=== PATIENT | male | born 1945 | race Caucasian/White ===

== ENCOUNTER 2025-05-18 17:54 | Emergency (ER) | payer OTHER, SELFPAY ==
[2025-05-18 17:58] VITALS: BP 167/86
[2025-05-18 18:08] LABS: Urine Character Slightly Cloudy (Clear)
--- NOTE | 2025-05-18 18:11 | ED.GENMED ---
History of Present Illness
General
Chief Complaint: Male Genito-Urinary Symptoms
Source: patient
Exam Limitations: none
Time Seen by Provider: 05/18/25 18:11
Nursing documentation reviewed up to this point in time: agreed with
History of Present Illness
History of Present Illness:
Note:
CHIEF COMPLAINT(S)
Dark-colored urine for a few hours.
HISTORY OF PRESENT ILLNESS
The patient is an 79-year-old male with a pmh of htn, hlp, skin cancer, diverticulitis, COPD, presenting with a sudden change in urine color to dark, noted this afternoon. The patient reports that earlier in the day, his urine appeared normal. The
change occurred approximately three hours ago, around 3:30 PM. The patient was recently engaged in yard work during a period of hot and humid weather, which may have led to inadequate hydration. He suspects possible dehydration as a contributing
factor. The patient reports no current symptoms of body aches, vomiting, or discomfort during urination, aside from the change in urine color. He denies urinary frequency or urgency. He denies abdominal pain, flank pain. He has a history of engaging
in similar physical activities regularly, but this instance involved excessive perspiration. The patient called his primary care provider who expressed concern regarding rhabdomyolysis and sent him to the ER for further evaluation.
PAST SURGICAL HISTORY
The patient has a history of having a section of their bowel removed due to presumed diverticulitis with subsequent perforation. The bowel was resected and restored, and he reports no ongoing issues since the intervention.
PHYSICAL EXAM
- Nursing notes and vital signs were reviewed.
General: Patient is well appearing and in no acute distress; non-toxic
Skin: Warm and dry, no rashes or lesions
Head: Normocephalic, atraumatic
Eyes: Sclera non-icteric. EOMs intact.
Cardiac: Regular rate and rhythm, no murmurs
Peripheral Vascular: No lower extremity swelling or edema
Pulm: Normal respiratory effort, no wheezes, rales, or rhonchi
Abdomen: No abdominal tenderness to palpation
Neuro: CN II-XII intact, no focal neurologic deficits.
Psychiatric: Appropriate mood and affect.
PROBLEM LIST
Acute:
- Dark-colored urine
PLAN
The plan includes obtaining blood work to rule out conditions such as rhabdomyolysis and administration of intravenous fluids to address and potentially alleviate dehydration concerns.
DIFFERENTIAL DIAGNOSIS
The Differential Diagnosis includes, in no particular order and is not limited to:
1. Dehydration
2. Rhabdomyolysis
3. Urinary tract infection
4. Hematuria
5. Hepatobiliary disease
6. Medication-induced urine color change
7. Muscle injury
8. Heat-related illness
9. Acute kidney injury
10. Hemolytic anemia
CARE-UPDATE
05/18/25 - 19:17
Reviewed call in note; According to patient's primary care provider indicate the patient has a history of chronic microhematuria with a negative urology workup approximately 10 years ago. Currently awaiting the results of the potassium and chemistry
panel for further assessment.
05/18/25 - 19:32
Patient notes that his urine color has lightened and that it now appears light yañez to yellow; patient has no complaints at this time. Updated patient on his labs. Patient reports that he has had a cystoscopy in the past for his microscopic
hematuria which was normal.
CHART REVIEW
Reviewed colonoscopy from 02/03/2021 patient had polyps which were removed
Reviewed discharge summary from 04/22/2019 patient seen for abdominal pain and was found to have perforated diverticulitis
Reviewed external medical summary, reviewed note from well visit September 13, 2024, patient seen for vaccination dates, discussed exercise, and dietitian follow-up
MDM DISPOSITION
The patient is an 79-year-old male with a pmh of htn, hlp, skin cancer, diverticulitis, COPD, presenting with a sudden change in urine color to dark, noted this afternoon. He has been working outside doing yard work for multiple hours and he
reports that with how hot it was recently, he has been profusely sweating. Patient admits that he feels he has not been hydrating adequately. At this time, patient feels well. Patient has occasional body aches in his shoulders but this is where
he usually feels sore after doing yard work. He denies any abdominal pain. He denies any burning with urination, flank pain, fevers or chills. On physical exam he is well-appearing in no acute distress he has no abdominal tenderness, no CVA
tenderness. Concern for primary regarding rhabdo, patient was noted to have microscopic hematuria today however patient has a history of this and has been worked up for urology in the past.
His CBC is unremarkable, his CMP shows mildly elevated BUN but normal creatinine and normal GFR. Does have a slightly elevated creatinine kinase 224 however not in rhabdo territory. Urine color has been improving with hydration. Suspect acute
dehydration. Did stress follow-up with primary care and perhaps follow-up again with urology considering it has been since it has been some time. There is some moderate bacteria on urinalysis and 1+ leukocyte esterase however patient has no pelvic
pain, no dysuria, no hematuria, no fever, no urinary frequency, no abdominal pain, will await urine culture in regards to abx therapy. He does not have a hx of UTIs. Patient stable for discharge.
Past History
Past History
ED Past Medical History: None
ED Past Surgical History: Orthopedic
Social History
Tobacco: Former smoker
Alcohol: None
Drug: None
Personal:
Living: with family
Review of Systems
Review of Systems
All Other Systems: ROS reviewed and negative except as documented in HPI and ROS
Phy Exam
Physical Exam
Physical Exam:
see hpi
Course
Orders/Labs/Results
Orders:
Orders
05/18/25 18:01
Urinalysis Reflex To Culture Urgent
Date Specimen was Collected: 05/18/25
Time Specimen was Collected: 18:00
Urine Microscopic Reflex Cult Urgent
Urine Culture Urgent
BENNIE Source: U
Specimen Description:
Date Specimen was Collected: 05/18/25
Time Specimen was Collected: 18:00
05/18/25 18:23
0.9% Sodium Chloride 500 ml [Nss] 500 ml IV BOLUS
05/18/25 18:25
CPK [Creatine Phosphokinase] Urgent
Complete Blood Count/With Diff Urgent
Comprehensive Metabolic Panel Urgent
Abnormal Lab Results
05/18/25 05/18/25
18:01 18:25
RBC 4.48 L 10^6/uL
(4.70-6.10)
BUN 21 H mg/dl
(9-20)
Creatinine 0.6 L mg/dL
(0.7-1.3)
Creatine Kinase 224 H U/L
(55-170)
Ur Occult Blood Reflex 4+ A
(Negative)
Leukocyte Esterase Rfl 1+ A
(Negative)
Urine RBC 40-50 A /HPF
(0-2)
Urine Bacteria (Reflex) Moderate A
(Negative)
Urine Albumin (Reflex) 3+ A
(Neg - Trace)
05/18/25 18:25
05/18/25 18:25
Vital Signs
Initial and Last Documented VS:
Initial Vital Signs
Temp Pulse Resp BP Pulse Ox
98.7 F 69 16 167/86 99
05/18/25 17:58 05/18/25 17:58 05/18/25 17:58 05/18/25 17:58 05/18/25 17:58
Last Documented Vital Signs
Temp Pulse Resp BP Pulse Ox
98.7 F 69 16 167/86 99
05/18/25 17:58 05/18/25 17:58 05/18/25 17:58 05/18/25 17:58 05/18/25 18:12
*Pulse Oximetry
SaO2: 99
Oxygen Mode of Delivery: Room air
Patient hypoxic: no
*Critical Care Note
Total Time (30-74mins, 75-104mins- exclusive of procedures): Not Applicable
ED Attending Note
-
Portions of this chart may have been created with voice recognition software.� Occasional wrong word or��sound alike� substitutions may have occurred due to the inherent limitations of voice recognition software.
Discharge Plan
Departure
Patient Disposition: Home (Routine Discharge)
Date of Disposition: 05/18/25
Time of Disposition: 19:36
Patient with high blood pressure during this ER visit?: Yes
Condition: Good
Discharge Problem:
Acute dehydration, Intermittent microscopic hematuria
Instructions: Dehydration in adults - ED discharge instructions, Blood in the urine (hematuria) - ED discharge instructions, BLOOD PRESSURE
Prescriptions:
No Action
rosuvastatin 5 MG tablet
5 mg PO HS
olmesartan 20 MG tablet
40 mg PO HS
hydrocodone-acetaminophen 1 TABLET tablet
1 - 2 tab PO Q4HPRN PRN (Reason: moderate to severe pain) Qty: 20 0RF
Referrals:
Jerri Knapp MD [Active, Internal Medicine] - Call in 1-3 days for appt
Montrell Mcmullen MD [Active, Urology] - Call in 1-3 days for appt
Norm Acevedo DO [Family Provider, [facility]]
Activity Restrictions/Additional Instructions:
You were given a copy of your blood work. Your CPK level is unremarkable. You will receive a call regarding the results of your urine culture.
As discussed, please follow-up with your primary care provider. You may need repeat follow-up with urology since it has been 10+ years.
Please return to emergency department should you develop abdominal pain, chest pain, shortness of breath, nausea and vomiting, fevers or chills, burning with urination, flank pain, or any other signs or symptoms worrisome to you.
Interventions
Interventions:
*Risk Screen - Suicide Last Done: 05/18/25 17:58
*General Assessment Last Done: 05/18/25 18:13
*Neglect/Abuse Screening Last Done: 05/18/25 17:58
*ED- Fall Risk Assessment Last Done: 05/18/25 18:13
*ED COVID-19 Vaccine History Last Done: 05/18/25 18:13
*Nursing Disposition Last Done: 05/18/25 19:46
ED-Male Genitourinary Assessment Last Done: 05/18/25 19:07
Discharge Date and Time
Discharge Date/Time: 05/18/25 19:46
Print Language: TELUGU
[2025-05-18 18:13] VITALS: BMI 31.8
[2025-05-18 18:15] LABS: Urine Red Blood Cell 40-50 /HPF (0-2); Urine Squamous Cell 16-20 /LPF (Few)
[2025-05-18] MEDS: NSS 500 IV (18:32)
[2025-05-18 18:49] LABS: Hematocrit 40.2 % (39.0-52.0); Hemoglobin 13.9 g/dL (13.0-18.0); Mean Corp Hgb Conc. 34.6 g/dL (33.0-37.0); Mean Corpuscular Volume 89.7 fL (80.0-94.0); Nucleated Red Blood Cells % 0 % (-); Platelet Count 215 10^3/uL (130-400); Red Cell Dist. Width 12.9 % (11.5-14.5)
[2025-05-18 19:19] LABS: ALT (SGPT) 22 U/L (0-50); AST (SGOT) 27 U/L (17-59); Albumin 4.6 g/dl (3.5-5.0); Alkaline Phosphatase 80 U/L (38-126); Blood Urea Nitrogen 21 mg/dl (9-20); Calcium 9.7 mg/dl (8.4-10.2); Carbon Dioxide 24 mmol/L (22-30); Chloride 104 mmol/L (98-107); Estimated Creatinine Clearance 113 ml/min; Glucose 87 mg/dl (70-99); Potassium 4.5 mmol/L (3.5-5.1); Sodium 135 mmol/L (135-145); Total Protein 7.1 g/dl (6.3-8.2); eGFR > 60.00
== END 2025-05-18 19:46 | disposition home or self-care (01) ==
LOC: EMR 17:54
PROVIDERS: Physician Assistant; Student in an Organized Health Care Education/Training Program; EMERGENCY PHYSICIAN Emergency Medicine; FAMILY PHYSICIAN Family Medicine
DX: E86.0 Dehydration (principal); R31.29 Other microscopic hematuria; I10 Essential (primary) hypertension; E78.00 Pure hypercholesterolemia, unspecified; J44.9 Chronic obstructive pulmonary disease, unspecified; Z85.828 Personal history of other malignant neoplasm of skin; Z87.891 Personal history of nicotine dependence
CPT/HCPCS: 99283; 80053; 81003; 81015; 82550; 85025; 87086

== ENCOUNTER → 2025-07-22 15:42 | Outpatient (REF) | payer OTHER, SELFPAY | LOC: RAD 15:42 | PROVIDERS: ATTENDING PHYSICIAN Surgery; FAMILY PHYSICIAN Family Medicine | DX: R31.9 Hematuria, unspecified (principal) | CPT/HCPCS: 74178; Q9967 ==

== ENCOUNTER 2025-07-29 06:36 | Day surgery (SDC) | payer OTHER, SELFPAY ==
[2025-07-29] VITALS (9 sets, daily range): BP systolic 157–174; BP diastolic 89–119; BMI 31.3
[2025-07-29] MEDS: NORMOSOL-R/PLASMALYTE-A 1000 IV ×2 (10:59→11:42)
[2025-07-29] MEDS: DETROL LA 4 MG PO (13:09)
== END 2025-07-29 13:44 | disposition home or self-care (01) ==
LOC: SDS 06:36
PROVIDERS: ATTENDING PHYSICIAN Surgery
DX: C65.2 Malignant neoplasm of left renal pelvis (principal); R31.0 Gross hematuria
CPT/HCPCS: 52354; 88112; 88305; 93005

== ENCOUNTER 2025-09-04 06:17 | Inpatient (IN) | payer OTHER, SELFPAY ==
[2025-09-04] VITALS (51 sets, daily range): BP systolic 45–172; BP diastolic 49–90; BMI 32.2
[2025-09-04] MEDS: NORMOSOL-R/PLASMALYTE-A 1000 IV (07:14)
[2025-09-04] MEDS: HEPARIN 5000 UNITS SC (07:18)
[2025-09-04 11:20] LABS: Hematocrit 30.9 % (39.0-52.0); Hemoglobin 10.5 g/dL (13.0-18.0)
--- NOTE | 2025-09-04 13:15 | SUR.PHASEI ---
Pt received to PACU with BP 63/55, Kai Kimball CRNA at pt bedside. Dr. Page notified by AUDIO/VIDEO TECHNICIAN
--- NOTE | 2025-09-04 13:24 | SUR.PHASEI ---
Dr. Hoang notified pt on Levophed gtt and MT drain with 180ml output
--- NOTE | 2025-09-04 13:30 | SUR.PHASEI ---
Dr. Page and Dr. Daily at pt bedside to evaluate. Pt to be upgraded to ICU
[2025-09-04 13:39] LABS: Hematocrit 37.6 % (39.0-52.0); Hemoglobin 12.9 g/dL (13.0-18.0)
--- NOTE | 2025-09-04 13:40 | CON.HOSP ---
Consultation
-
Date/Time Consultation Requested: 09/04/25
Date/Time Consultation Performed: 1:41
Performing Provider: Dr Norman
Reason for Consultation: S/p left robotic nephro ureterectomy
Family Physician
-
Family Physician: Norm Acevedo
Chief Complaint
-
2 L IntraOp blood loss
History of Present Illness
80-year-old male with past history of hypertension, urothelial cancer, sciatica, hyperlipidemia underwent today left robotic s/p nephroureterectomy, while on IntraOp 2 liters of blood loss noted and received 2 units PRBCs. Immediate postop his
blood pressure is 83/60 and hospitalist is consulted for future needing of pressors while in PACU. Patient has concern for back pain(chronic due to spinal stenosis). He has no concern for chest pain, palpitation, dyspnea. His urine output
immediate postop is around 20 mL. His extremities are warm(not concerning for septic shock). Levophed 4 mg / 250 mL started. Shifted to ICU. Around 3 PM his blood pressure is 107/70 with MAP 80. His temperature is in normal range. He is on 2 L
of nasal cannula oxygen but the saturation maintaining around 96%.
Medical History
Past Medical History
Past Medical History: Reports HTN, Hypercholesterolemia and Other (sciatica)
Additional Past Medical History:
Perforated diverticulum, umbilical hernia without obstruction, urothelial cancer.
Past Surgical History: Reports Bowel Resection and Other (colostomy. )
Social History
Unable to obtain full social history at this time due to: Other (Patient in postop.)
Allergies / Home Medications
Allergies
Allergy/AdvReac Type Severity Reaction Status Date / Time
Penicillins Allergy Possible Verified 09/04/25 14:43
rash 'a
long time
ago'
Opioids - Morphine Analogues AdvReac 'bowels Verified 09/04/25 14:43
shut down'
Home Medications
rosuvastatin 20 mg tablet 20 mg PO HS 07/25/25
olmesartan 40 mg tablet (Benicar) 40 mg PO HS 08/28/25
tramadol 50 mg tablet 50 mg PO TID PRN severe pain #10 tabs 09/04/25
Allergies reflects when Allergies were last updated in [facility].
Home Medications with original date entered in [facility]
Allergy/Medication List:
penicillin allergy
Review of Systems
-
History Source: Patient
A 12 point Review of Systems was completed except as noted: Yes
Physical Exam
Vital Signs
Vital Signs
Temp Pulse Resp BP Pulse Ox
98.1 F 95 27 101/76 100
09/04/25 07:22 09/04/25 13:32 09/04/25 13:32 09/04/25 13:32 09/04/25 13:32
Physical Exam
General: Other (distress due to pain)
HEENT: Oxygen (2 L oxygen)
Respiratory: Clear
Cardiac: S1/S2 and Regular Rhythm
GI: Soft
Genito-urinary: Lopez Catheter (770 mL)
Neuro: Awake, Alert and Oriented
Psych: Calm
Laboratory Results
-
Laboratory Results
09/04/25 13:27
Impression / Plan
-
IMPRESSION & PLAN:
# Hypotension secondary to IntraOp blood loss:
BP 107/70 , after Levophed infusion.
Extremities are warm.
2 L blood loss IntraOp and transfused 2 units of packed RBCs.
Currently Hb 10.5 low---> 12.9 low
Ringer lactate 1 L and a rate of 125 mL/h infusion started.
Monitor I/O---> UO = 700 mL (as of now 50 mL noticed in the bag.)
Current creatinine is 0.8.
Monitor electrolytes, bicarb, magnesium.
Urinalysis in future for routine.
# Monitor PT, PTT.
# Placed order lactate.
# Acute anemia secondary to blood loss:
Currently Hb 10.5 low---> 12.9 low
If Hb drops less than 7, consider blood transfusion.
Monitor H&H
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
Tramadol as needed.
# Hyperlipidemia:
Continue Rosuvastatin 20 mg tablet 20 mg
# Hypertension:
Continue olmesartan 40 mg tablet (Benicar) 40 mg
# Monitor CBG-blood glucose 191 high.
DVT: Lovenox 40 mg SC
Disposition: ICU
[2025-09-04] MEDS: LEVOPHED 250 IV (13:49)
[2025-09-04] MEDS: TRANEXAMIC ACID 100 IV (13:50)
[2025-09-04 13:52] LABS: ALT (SGPT) 17 U/L (0-50); AST (SGOT) 20 U/L (17-59); Albumin 3.0 g/dl (3.5-5.0); Alkaline Phosphatase 53 U/L (38-126); Blood Urea Nitrogen 16 mg/dl (9-20); Calcium 7.9 mg/dl (8.4-10.2); Carbon Dioxide 24 mmol/L (22-30); Chloride 105 mmol/L (98-107); Estimated Creatinine Clearance 87 ml/min; Glucose 191 mg/dl (70-99); Potassium 4.6 mmol/L (3.5-5.1); Sodium 135 mmol/L (135-145); Total Protein 4.9 g/dl (6.3-8.2); eGFR > 60.00
[2025-09-04 14:08] LABS: Mean Corp Hgb Conc. 34.2 g/dL (33.0-37.0); Mean Corpuscular Volume 88.8 fL (80.0-94.0); Nucleated Red Blood Cells % 0 % (-); Platelet Count 235 10^3/uL (130-400); Red Cell Dist. Width 13.8 % (11.5-14.5)
--- NOTE | 2025-09-04 14:28 | CON.INTV ---
Consultation
Consultation Request
Date/Time Consultation Requested: 09/04/2025 14:05
Date/Time Consultation Performed: 09/04/2025 14:28
Requesting Provider: Mohit Norman DO
Performing Provider: Luis aTmez MD
Medical History
-
History of Present Illness:
This is an 80 y/o male with pertinent pmhx of left urothelial carcinoma diagnosed following hematuria.
He presented to the hospital today for an elective left nephroureterectomy. By hospitalist report, the surgery was complicated by a blood loss of approximately 2L in the OR. He received 2 units of pRBCs, but was persistently hypotensive in the wake
of his blood loss in the PACU. He as started on low-dose levophed which improved his MAP to low 70s. Post-operative labs revealed a calcium of 7.9, a hemoglobin initially of 10.5 which increased to 12.9, WBC of 15.5. There are no new X-rays or CT
scans from this admission. He was admitted to the ICU for further management.
At the time of my note he is responsive and answering questions appropriately, though he does seem tired. He states he feels lethargic from anesthesia, but otherwise feels good. He is currently free of chest pain, shortness of breath, abdominal
pain, or any other new pain anywhere else. He is free of chills or feeling cold, as well as numbness or dizziness.
Past Medical History
Past Medical History: Cancer (Squamous cell carcinoma of the skin, left urothelial carcinoma), HTN, Hypercholesterolemia and Other (Lumbar degenerative disc disease and spinal stenosis, Diverticulosis with history of Diverticulitis, Obesity,
Perforated diverticulum of the large intestine in 2019, Microscopic hematuria )
Past Surgical History: Other (Left ankle repair, Right knee scope. Umbilical herniorrhaphy w/ mesh 2016, Ex Lap with sigmoid resection and descending colostomy 2018, Excision of squamous cell carcinoma of the skin, Robotic colostomy closure w/
takedown of splenic flexure in 2018, Shoulder replacement 2021)
Social History
Tobacco: Former Smoker (Quit >40 years prior)
Alcohol: None
Drug: None
Personal:
Living: With Family
Family History
Family History: Reviewed & Not Pertinent
Allergies / Home Medications
Allergies
Allergy/AdvReac Type Severity Reaction Status Date / Time
Penicillins Allergy POSSIBLE Verified 09/04/25 07:08
RASH
opiods Allergy 'bowels Uncoded 09/04/25 07:08
shut down'
Home Medications
�Medication �Instructions �Recorded �Confirmed �Last Taken �Type
rosuvastatin 20 mg tablet 20 mg PO HS 07/25/25 09/04/25 09/03/25 21:00 History
olmesartan 40 mg tablet (Benicar) 40 mg PO HS 08/28/25 09/04/25 09/03/25 21:00 History
tramadol 50 mg tablet 50 mg PO TID PRN severe pain #10 09/04/25 Unknown Rx
tabs
Review of Systems
-
History Source: Patient
All other systems: Negative unless noted
Constitutional: Fatigue and Chills (Denies)
Respiratory: No Symptoms
Cardiac: No Symptoms
Abdomen/GI: No Symptoms
Musculoskeletal: No Symptoms
Skin: No Symptoms
Neuro: No Symptoms
Vitals / Labs / Diagnostic Testing
Vital Signs
Temp Pulse Resp BP Pulse Ox
98.6 F 88 0 107/62 94
09/04/25 13:15 09/04/25 14:15 09/04/25 14:15 09/04/25 14:15 09/04/25 14:15
Lab Data
09/04/25 13:27
09/04/25 13:27
Diagnostic Testing:
Physical Exam
-
HEENT: Normocephalic and Anicteric
Cardiovascular: S1/S2 and Regular Rhythm
Respiratory: Clear
GI: Other (There is a midline/slightly post operative drain which appears clean. During my time in the room, approximately 110mL of bloody liquid was removed from the surgical drain by staff)
Neurology: Awake and Alert
Skin: Warm, Dry and Other (Pale)
General: Comfortable
Assessment
-
Assessment:
This is an 80 y/o male with pertinent pmhx of left urothelial carcinoma who presented to the hospital today for an elective left nephroureterectomy who reportedly experienced 2L blood loss in the ED and experienced persistent hypotension requiring
levophed despite 2 units pRBCs being transfused who now has new EKG changes on routine admission EKG.
Plan:
Circulatory Shock in the setting of acute blood loss during surgery
Patient underwent elective left nephroureterectomy today reportedly complicated by loss of 2L of blood an tranexamic acid and subsequently developed persistent hypotension despite 2 units pRBCs being transfused. Total operative time ~5 hours
DD includes hypotension from acute blood loss vs anesthesia reaction vs transient shock due to kidney surgery
S/p 1 time dose 2g Ceftriaxone for surgery
Hemoglobin today initially 10.5 which increased to 12.9
Lactated Ringers started by admitting team
Thus far he has remained fever-free
Currently he is on Levophed 6
Continue to wean Levophed as tolerated, keeping MAP >65. Should Levophed requirements increase, start Vasopressin
Continue to monitor CBC
Blood cultures obtained by admitting team
Hold home BP medication (Olmesartan) acutely
Plan to transfuse as necessary for hemoglobin less than 7.
Low threshold to start antibiotics (Fever, increased pressor requirements)
EKG changes
New 1mm ST elevations in lead III and aVF with depressions in aVL
Compared to prior EKG in 07/2025, new
Currently asymptomatic.
Ordered troponin, will plan to repeat EKG in 15 minutes
Consulted cardiology, will appreciate their insight. Discussed case with them today and they recommend aspirin and echocardiogram
Continue home Rosuvastatin
Monitor for symptom development.
Left urothelial carcinoma S/p elective left nephroureterectomy
Most recent CT scan from 07/22/2025 showed likely urothelial carcinoma in the left renal pelvis.
S/p elective left nephroureterectomy today complicated by blood loss (see above)
Operation note pending
Follow pathology from OR
Post-operative management per Urology
[2025-09-04] MEDS: LR 1000 IV ×2 (14:45→22:14)
--- NOTE | 2025-09-04 14:50 | PTCARENOTE ---
Rec'd pt from PACU at 1430 via bed. Transferred on to ICU bed. Rec'd pt groggy but easily arousable, alert and oriented. GOODMAN. Speech is clear. Admits to some chronic lower back pain otherwise denies pain. Skin is pale wm and dry. Pt with 4 stab
wound on abd with dressings that are D+I. Also has mid lower abd dressing with MT drain- that dressing was intially D+I however after turning pt on his L side dressing became saturated with bloody drainage on dressing and some on his gown and
linens. MT drain emptied x2 for a total of 110 mls of bloody drainage. Respirs are unlabored on 2l nc with sats of 95%. BS are decreased at the bases. Monitor SR with border 1st 'avb and BB config. + pulses. DP pulses with the doppler. THigh high
TEDs and SCD's intact. VS as documented. Rec'd pt on 6mcg of IV Levophed infusing via R hand IV site. Inital BP was 116/78- Tried pt on 4 mcg but BP dipped to 80/59 and 83/57 so currently back on 6mcg. Abd is soft with hypoactive BS. Denies nausea.
Lopez intact for yellow urine with few bloody shreds. LR hung via R hand IV site at 125 ml/hr. Capped int intact L hand. Complete CHG bath given. Oral care given. Turned and repositioned. Call scott in reach. Plan of care reviewed with pt.
--- NOTE | 2025-09-04 15:00 | PTCARENOTE ---
Routine post op ECG completed and read as STEMI. Pt with no c/o any chest pain. Dr. Tamez updated along with Dr. Mcneill (Resident) Cardiology consulted. Tried pt on 4 mcg Levophed but currently back at 6 mcg as BP dipped into the 80's syst.
--- NOTE | 2025-09-04 15:08 | W.PN.UPDATE ---
Update Note
Progress Note Update
Upon routine EKG assessment, patient found to have [address] elevation in lead III+, aVF, and I�[address] depressions in lead II I, aVL + V4�6. Troponin being obtained and repeat EKG is going to be done in several minutes. Cardiology notified with
official consult to be placed.
--- NOTE | 2025-09-04 15:30 | PTCARENOTE ---
Blood cultures x1 and labs sent as ordered. Repeat ECG completed. Chiquita Zuniga and Dr. Morales in to see pt and updated. ECHO ordered. Pt groggy but easily arousable and oriented. C/O 'solar pelxus' discomfort. Lower abd Eb drain emptied for
additional [address] Hoang updated.
[2025-09-04 15:34] LABS: Magnesium 2.1 mg/dl (1.6-2.3)
--- NOTE | 2025-09-04 15:39 | CON.CAR ---
Addendum entered and electronically signed by Edwin Morales MD 09/04/25 17:20:
I saw and examined the patient.
The Model Maker Scale's note was reviewed and I agree with the note.
Comment:
GEN: No distress, awake, Ox3
HEENT: supple, anicteric, mmm
LUNGS: CTA, no wheezes/rales
CV: Reg, S1/S2, 1/6 syst LSB, no gallop
ABD: soft, BS dec. + MT drain. Incisional tenderness.
EXT: No edema
NEURO: Gross non-focal
SKIN: No rash
Echo 09/04/25: Very technically difficult study but overall LVEF approximately 55%. No clear wall motion abnormalities.
PLan:
80-year-old male with past medical history of hypertension, hyperlipidemia, prediabetes, presents for elective left nephrectomy for suspected urothelial carcinoma. The patient went to the operating room today and had an extensive 5-hour surgery
with significant blood loss. He was given 2 units of packed red blood cells during surgery. The patient was discharged to the PACU and ICU. EKG was performed where approximately [address] elevation was found in leads III and aVF. The patient
denies chest pains or shortness of breath but he does have some mild incisional pain. He has had no recent cardiac evaluation. He is having significant bleeding from his MT drain but no significant bleeding from his Lopez.
Postoperative markedly abnormal ECG/MT
In the setting of no significant chest pains and immediately postsurgery for now I would treat Mr. Valenzuela conservatively. We will follow his troponins and add aspirin. His echo has no clear wall motion abnormality but I am concerned he does have
either marked demand ischemia from his surgery or significant coronary artery disease, possibly in the RCA distribution. Would repeat his echo in several days once he can move or roll on his side some.
Continue rosuvastatin. He remains on pressors including Levophed. If he has significant chest pain or marked arrhythmia would add IV heparin, but for now we will hold off.
No beta-laquita for now since he is on Levophed. Continue rosuvastatin. Check lipids
He will need a cardiac catheterization at some point but for now we will let him recover from surgery assuming he continues to remain stable.
Hemoglobin 12.9 post procedure. Continue to follow. He did receive 2 units.
Case discussed with Dr. Hoang and Dashawn along with salon receptionist team.
We will continue to follow closely. I suspect his troponins will be abnormal.
CC time 1 hr 5 min
Original Note:
Consultation
Consultation Request
Date/Time Consultation Requested: 09/04/2025
Date/Time Consultation Performed: 09/04/2025
Requesting Provider: Dr. Tamez
Performing Provider: Dr. Morales
Reason for Consultation: Abnormal ECG
Medical History
-
History of Present Illness:
Patient admitted to [facility] following planned left nephrectomy for suspected carcinoma and cardiology consulted for abnormal ECG postop. Patient had an episode of hematuria evaluated in the ER back in June and then followed up with urology as an
outpatient and CT scan later revealed a left renal pelvic mass. 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
nephrectomy which was ultimately performed today, 09/04/2025. Blood loss was estimated at 2 L. Patient is now in the ICU on Levophed at 6. Postoperative ECG performed and there is ST elevation in leads III and aVF. Patient denies chest pain. No
history of CAD, but patient had a preoperative cardiac clearance back in 2021 for shoulder replacement surgery, but no previous echo or stress test. Patient had a nonstop flight from [place] to [place] on Tuesday night and his car was actually
parked in [place] so then he had to take a train ride to get his car and then drive home, but no leg pain or swelling, no SOB and no chest pain.
PMH:
Left renal pelvic urothelial carcinoma
HTN
Hyperlipidemia
Prediabetes, HgbA1c 6.3% 08/19/2025
Past Medical History
Past Medical History: Other (In HPI)
Past Surgical History: Orthopedic (Left TSA 2021) and Other (Exploratory laparotomy sigmoid resection and descending colostomy 2017 followed by robotic colostomy closure with takedown of splenic flexure during 2019)
Social History
Tobacco: Former Smoker (Smoked age [age])
Alcohol: Other (6-7 drinks in a week)
Drug: None
Personal:
Living: With Family
Family History
Family History: Other (Father had an MT and CVA in his 90s, brother with non-small cell lymphoma)
Allergies / Home Medications
Allergy/AdvReac Type Severity Reaction Status Date / Time
Penicillins Allergy Possible Verified 09/04/25 14:43
rash 'a
long time
ago'
Opioids - Morphine Analogues AdvReac 'bowels Verified 09/04/25 14:43
shut down'
�Medication �Instructions �Recorded �Confirmed �Type
rosuvastatin 20 mg tablet 20 mg PO HS 07/25/25 09/04/25 History
olmesartan 40 mg tablet (Benicar) 40 mg PO HS 08/28/25 09/04/25 History
tramadol 50 mg tablet 50 mg PO TID PRN severe pain #10 09/04/25 Rx
tabs
Review of Systems
-
History Source: Patient and Family (Daughter and )
All other systems: Negative unless noted
Physical Exam
Vital Signs
Temp Pulse Resp BP Pulse Ox
98.6 F 88 0 107/70 96
09/04/25 14:37 09/04/25 14:19 09/04/25 14:19 09/04/25 14:20 09/04/25 14:37
GEN: NAD, AAO x 3
HEENT: EOMI, MMM
LUNGS: 2 L NC. Clear anterolaterally without wheeze or rales
CV: SR on telemetry. Reg, S1/S2, no murmur
ABD: ND
EXT: No edema B/L LE
NEURO: Gross non-focal
SKIN: No rash
: Lopez catheter in place draining clear yellow urine
Lab Results
09/04/25 13:27
09/04/25 13:27
Troponin pending
Impression / Plan
-
PCP: Dr. Acevedo
Cardiology: Saw Dr. Fontana 2021
Impression:
Admitted following planned left nephrectomy and abnormal ECG postop 09/04/2025
s/p robotic left nephrectomy 09/04/2025
Postoperative hypotension and blood loss
Left renal pelvic urothelial carcinoma
Abnormal ECG concerning for inferior MT with ST elevation in leads III and aVF
HTN
Hyperlipidemia
Prediabetes, HgbA1c 6.3% 08/19/2025
Echo 09/04/2025: Urgent bedside study pending
Plan:
-Patient admitted to [facility] following planned left nephrectomy for suspected carcinoma and cardiology consulted for abnormal ECG postop. Patient had an episode of hematuria evaluated in the ER back in June and then followed up with urology as an
outpatient and CT scan later revealed a left renal pelvic mass. 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
nephrectomy which was ultimately performed today, 09/04/2025. Blood loss was estimated at 2 L. Patient is now in the ICU on Levophed at 6. Postoperative ECG performed and there is ST elevation in leads III and aVF. Patient denies chest pain. No
history of CAD, but patient had a preoperative cardiac clearance back in 2021 for shoulder replacement surgery, but no previous echo or stress test. Patient had a nonstop flight from [place] to [place] on Tuesday night and his car was actually
parked in [place] so then he had to take a train ride to get his car and then drive home, but no leg pain or swelling, no SOB and no chest pain.
-ECG reviewed by me is SR with inferior ST elevation
-Check urgent bedside echo, ordered by me and coordinated as an urgent study with the echo lab
-Aspirin 3 and 24 mg PO x 1 now then 81 mg daily, ordered by me
-Troponin pending
-Blood loss reported at time of nephrectomy, but Hgb was stable at 12.9 on 09/04/2025 at 1327, repeat labs pending
-Pending results of echo and labs we may add heparin gtt no bolus
-BP 101/81 on Levophed at 6
-Unable to add beta-laquita due to hypotension
-Check CVE, ordered by me, and continue his usual dose of rosuvastatin 20 mg daily for now
-HgbA1c was 6.3% with his PCP on 08/19/2025, this is consistent with prediabetes
--- NOTE | 2025-09-04 15:45 | PTCARENOTE ---
Echo here to do study. No changes in assessment
[2025-09-04 15:48] LABS: APTT 23.9 Sec (23.4-35.0); INR 1.03; PT 14.0 Sec (11.4-14.6)
[2025-09-04 16:09] LABS: Troponin I 0.141 ng/ml
--- NOTE | 2025-09-04 16:25 | CARDSERVLU ---
Echocardiogram with Lumason completed after protocol screening completed. Allergies verified.
Patent IV site: __R hand___
IV site flushed with 0.9% NaCl pre and post administration.
Diluted bolus method utilized to enhance visualization of ventricular bruno.
Total volume given: __3__ mL
Patient tolerated all procedures well without complications.
--- NOTE | 2025-09-04 16:35 | PTCARENOTE ---
ECHO completed. VS as documented.
[2025-09-04] MEDS: COLACE 100 MG PO ×2 (16:47→22:13)
[2025-09-04] MEDS: LOW STRENGTH ASPIRIN 324 MG PO (16:48)
--- NOTE | 2025-09-04 17:02 | W.PN.UPDATE ---
Update Note
Progress Note Update
Updated patient, and daughter in the room with echo results, no obvious WMA and EF overall preserved. Initial troponin 0.141. No complaints of chest pain, he does report he has gas pain and feels as though he needs to move his bowels or pass
gas. Will not start heparin gtt at this time. Continue with aspirin as ordered.
--- NOTE | 2025-09-04 17:30 | PTCARENOTE ---
Dr Dang, Dr Danielle, and Dr Hoang in to see pt, updated on pt's sanguinous drainage from abd MT drain. Levophed weaning down. Pt's and daughter in to see pt. Will recheck H+H, troponin, and lactic. Pt may have ice chips as per Dr
Arben.
[2025-09-04] MEDS: TYLENOL 650 MG PO (18:38)
--- NOTE | 2025-09-04 18:45 | PTCARENOTE ---
Levophed weaned to off. H+H, 2nd set of Blood cultures, troponin, and lactic drawn and sent to lab. Pt was given tylenol 650mg for abd discomfort. PCXR done at bedside. LR @ 125ml/hr infusing.
[2025-09-04 19:22] LABS: Hematocrit 32.6 % (39.0-52.0); Hemoglobin 11.6 g/dL (13.0-18.0)
--- NOTE | 2025-09-04 19:30 | PTCARENOTE ---
Resumed care of pt this evening. Surgical dressing intact. MT drain draining sanguineous drainage. Pt can make needs known.
[2025-09-04 19:47] LABS: Troponin I 0.849 ng/ml
[2025-09-04] MEDS: CRESTOR 20 MG PO (22:13)
[2025-09-04] MEDS: ULTRAM 50 MG PO (23:26)
[2025-09-05] VITALS (33 sets, daily range): BP systolic 87–135; BP diastolic 57–79; BMI 32.8
--- NOTE | 2025-09-05 | PTCARENOTE ---
Pt c/o 4 out of 10 abdominal pain. PRN dose of tramadol administered by this RN.
[2025-09-05 02:04] LABS: Troponin I 4.860 ng/ml
--- NOTE | 2025-09-05 06:00 | PTCARENOTE ---
MT drainage tapering down from beginning of shift. See I/O documentation. Surgical dressing remains intact.
[2025-09-05] MEDS: LR 1000 IV ×3 (06:24→22:07)
[2025-09-05] MEDS: ULTRAM 50 MG PO ×3 (06:24→22:07)
--- NOTE | 2025-09-05 06:47 | W.PN.HOSP.TC ---
Today's Communication/Plan
-
Monitor blood pressure, CBC, CMP, H&H
Abdominal x-ray ordered
Follow-up for troponin I
Heparin drip started
Assessment / Plan
Assessment / Plan
80-year-old male with k/h/o urothelial cancer, hypertension, dyslipidemia, diverticulosis, aortic atherosclerosis, obesity, history of colostomy, s/p robotic nephroureterectomy for his urothelial cancer with Dr. Sherwin Hoang from urology
presenting with IntraOp blood loss
# Hypotension secondary to IntraOp blood loss:
His BP 103/60, HI 93, RR 21, temp 98.4, oxygen 94 in 2 L of oxygen
BP 107/70 , after Levophed infusion.
2 L blood loss IntraOp and transfused 2 units of packed RBCs.
Monitor I/O---> UO = 125 ml
Current creatinine is 0.8.
Monitor electrolytes, bicarb, magnesium.
Urinalysis in future for routine.
# Myocardial infarction:
EKG :
-New 1mm ST elevations in lead III and aVF with depressions in aVL on 09/04
-Compared to prior EKG in 07/2025, new
troponin 4.8 H---11.8 high
-Cardiology consulted
- Type II myocardial infarction-asymptomatic, with continuous uptrend of troponin, given the recent blood loss IntraOp, below ECHO findings;
-Will postpone cardiac catheterization in future.
Currently off pressors, Monitor blood pressure.
Continue aspirin, Toprol, and rosuvastatin.
Planning to start heparin in spite of bleeding risk, acute anemia but given the troponin elevation.
Echo:
1. Right ventricular size and systolic functions normal.
2. Left ventricular ejection fraction is 55% by visual assessment.
3. There was no clear regional wall motion abnormalities on this technically difficult study.
4. Moderate concentric left ventricular hypertrophy.
5. Right ventricular size and systolic function are within normal limits.
6. Normal sized aortic root at 3.5 cm, Dilated Ascending Aorta at 4.3 cm.
7. Thickened aortic valve with some level of stenosis but difficult to assess due to technically difficult study.
8. There are no prior studies available for comparison.
Monitor troponin, renal function,
Avoid ANN/ARB's with hypotension and recent nephrectomy.
#Constipation secondary to post op paralytic ileus:
Abdominal x-ray ordered.
If there is a small bowel obstruction plan for NG tube in future.
# Acute anemia secondary to blood loss:
Currently Hb 10.5 low---> 12.9--->11.6-->10 low for today
If Hb drops less than 7, consider blood transfusion.
Monitor H&H
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
Tramadol as needed.
# Hyperlipidemia:
Continue Rosuvastatin 20 mg tablet 20 mg
# Hypertension:
Held losartan 40 mg tablet (Benicar)
# Monitor CBG-blood glucose 191 high.
# Urology recommended clear diet and move around.
# AST elevated.
Anticipated Discharge: > 48 hours
Subjective/Interval History
-
Date of Service: September 05, 2025
Overnight the patient experienced constipation, feels mild breathlessness while on deep breathing (he is saying it is because of constipation). He has abdominal bloating, he didnt pass flatus today., but no concern for chest discomfort, chest pain,
palpitation, dizziness, nausea, vomiting, fever, chills, dysuria.
Yesterday evening EKG showed [address] elevation in lead III, aVF, 1-[address] depression in lead II, aVL plus, and troponin were elevated 4.86 (h) .
Objective Data
-
Labs:
Laboratory Results
09/04/25 09/04/25 09/05/25
19:10 19:10 06:34
Hgb Cancelled 11.6 L Pending
Hct 32.6 L Pending
Sodium Pending
Potassium Pending
Chloride Pending
Carbon Dioxide Pending
BUN Pending
Creatinine Pending
Glucose Pending
Calcium Pending
Total Bilirubin Pending
AST Pending
ALT Pending
Alkaline Phosphatase Pending
Vital Signs:
Vital Signs
Temp Pulse Resp BP Pulse Ox
98.5 F 90 21 130/74 94
09/05/25 06:21 09/05/25 06:30 09/05/25 06:30 09/05/25 06:00 09/05/25 06:30
I&O
09/03/25 09/04/25 09/05/25
06:59 06:59 06:59
Intake Total 3329.0 / 3329.0
Output Total 2282.0 / 2282.0
Balance 1047.0 / 1047.0
Review of Systems
-
History Source: Patient
All other systems: Reviewed and negative
Physical Exam
-
General: Well Developed and Other
HEENT: Normocephalic and Oxygen (On 2 L nasal oxygen cannula)
Respiratory: Clear to Auscultation
Cardiac: Regular Rhythm and S1/S2
GI: Soft, Nontender and Distended (Abdominal distended. Port of entry wound present.)
Genito-urinary: No Costovertebral Tender
Musculoskeletal: No Clubbing and No Edema
Skin: Warm
Neuro: AO x 3
Psych: Calm
[2025-09-05 07:00] LABS: Hematocrit 28.2 % (39.0-52.0); Hemoglobin 10.0 g/dL (13.0-18.0)
[2025-09-05 07:15] LABS: ALT (SGPT) 23 U/L (0-50); AST (SGOT) 106 U/L (17-59); Albumin 2.9 g/dl (3.5-5.0); Alkaline Phosphatase 42 U/L (38-126); Blood Urea Nitrogen 21 mg/dl (9-20); Calcium 7.9 mg/dl (8.4-10.2); Carbon Dioxide 26 mmol/L (22-30); Chloride 104 mmol/L (98-107); Estimated Creatinine Clearance 63 ml/min; Glucose 136 mg/dl (70-99); HDL Cholesterol 40 mg/dl; LDL Cholesterol, Calculated 44 mg/dl; Potassium 4.3 mmol/L (3.5-5.1); Sodium 132 mmol/L (135-145); Total Protein 4.7 g/dl (6.3-8.2); Very Low Density Lipoprotein 26 mg/dl (0-30); eGFR > 60.00
[2025-09-05 07:19] LABS: Troponin I 11.800 ng/ml
--- NOTE | 2025-09-05 07:23 | W.PN.URO.CBU ---
Today's Communication / Plan
-
increase activity
CL diet
serial H&H
Assessment / Plan
-
overall stable in ICU
surgical drain output has significantly diminished
H&H are acceptable
Diagnosis
-
Date of Service: September 05, 2025
-
Patient Diagnosis:
Left Renal Urothelial Carcinoma
Intraperitoneal and Retroperitoneal Adhesions, extenive
Blood-loss anemia
s/p Robotic Left Radical Nephroureterectomy and lysis of Adhesions
Post Op Day: 1
Subjective
-
'I've had bowel pains for ten days and haven't moved them in three. The incision doesn't hurt that much.'
Objective
-
Vital Signs
Temp Pulse Resp BP Pulse Ox
98.5 F 90 21 130/74 94
09/05/25 06:21 09/05/25 06:30 09/05/25 06:30 09/05/25 06:00 09/05/25 06:30
Intake and Output
09/04/25 09/05/25 09/06/25
06:59 06:59 06:59
Intake Total 3329.0 / 3329.0
Output Total 2282.0 / 2282.0
Balance 1047.0 / 1047.0
Intake:
Oral fluids 100 / 100
IV fluids (Total) 3229.0 / 3229.0
Lr 1,000 ml @ 125 mls/hr IV . 2124
Q8H NORMA Rx#:[id number]
Norepinephrine 104.0 / 104.0
Normosol 900 / 900
Tranexamic Acid 100 / 100
Output:
Drain Output (Total) 855 / 855
Lower Abdomen Fausto-Martines 855 / 855
Urine, Lopez 1427.0 / 1427.0
Laboratory Results
09/05/25 06:34
09/05/25 06:34
Physical Exam
-
General - well developed, well nourished, no acute distress
Abdomen - soft, protuberant [baseline], positive bowel sounds
LL drain: thinly bloody output
Genitalia - Lopez draining yellow urine
Skin - warm & dry with no rash
Neuro - AOx3, no motor deficits
Extremities - no clubbing, no cyanosis, no edema
Dressings - clean, dry, intact
--- NOTE | 2025-09-05 07:45 | PTCARENOTE ---
Recd pt handoff in room with previous shift, IV fluids infusing; VS noted, no pressors. In good spirits, eager to get OOB, concerned about constipation. Reviewed plans for day. Seen by Urology. Assessment as documented. Abd softly rounded,
+flatus. Stab wounds gauze under tegaderm. MT drain maintained, some old drainage on dressing. MT drainage is dark/old smaller amounts than previously. Pinned to gown for stability.
[2025-09-05] MEDS: LOW STRENGTH ASPIRIN 81 MG PO (08:04)
[2025-09-05] MEDS: COLACE 100 MG PO ×3 (08:04→22:05)
--- NOTE | 2025-09-05 08:35 | W.PN.INTV ---
Today's Communication / Plan
Recommendations
Add Metamucil today
Continue to monitor for cardiac symptoms
If his hemoglobin remains stable with heparin drip, can plan to downgrade today
Assessment
-
Assessment:
This is an 80 y/o male with pertinent pmhx of left urothelial carcinoma who presented to the hospital today for an elective left nephroureterectomy who reportedly experienced 2L blood loss in the ED and experienced persistent hypotension requiring
levophed despite 2 units pRBCs being transfused who now has new EKG changes on routine admission EKG.
Plan:
Circulatory Shock in the setting of acute blood loss during surgery
Patient underwent elective left nephroureterectomy on 09/04 reportedly complicated by loss of 2L of blood an tranexamic acid and subsequently developed persistent hypotension despite 2 units pRBCs being transfused. Total operative time ~5 hours
DD includes hypotension from acute blood loss vs anesthesia reaction vs transient shock due to kidney surgery
S/p 1 time dose 2g Ceftriaxone for surgery
Hemoglobin 09/04 initially 10.5 which increased to 12.9
Lactated Ringers started by admitting team
Thus far he has remained fever-free
He has remained off of Leovphed overnight
Continue to monitor CBC
Blood cultures obtained by admitting team
Plan to transfuse as necessary for hemoglobin less than 7.
Low threshold to start antibiotics (Fever, increased pressor requirements)
Heparin will be started later today. Will monitor H&H to ensure no bleed
EKG changes
New 1mm ST elevations in lead III and aVF with depressions in aVL on 09/04
Compared to prior EKG in 07/2025, new
Currently remains asymptomatic.
Troponins uptrending, continue to follow to peak
Cardiology is following, will appreciate their insight.
Continue home Rosuvastatin
Monitor for symptom development.
Constipation
Patient reports ongoing constipation at baseline, worsened with opiates
Continue Colace
Ordered Metamucil
Elevated AST
Suspect shock liver
Will recheck LFTs in the AM
Left urothelial carcinoma S/p elective left nephroureterectomy
Most recent CT scan from 07/22/2025 showed likely urothelial carcinoma in the left renal pelvis.
S/p elective left nephroureterectomy today complicated by blood loss (see above)
Operation note pending
Follow pathology from OR
Post-operative management per Urology
Subjective Dataa
Subjective Data
Date of Service:
Date of Service: September 05, 2025
Chief Complaint: [employer] Administrator Follow Up
Subjective:
Patient reports doing well today. He is free of chest pain, abdominal pain, nausea, incision-site pain. He does report ongoing, chronic constipation.
Review of Systems
General: Fever (Denies) and Chills (Denies)
Cardiopulmonary: Dyspnea (Denies), Dyspnea on Exertion (Denies), Cough (Denies), Wheezing (Denies) and Chest Pain (Denies)
GI: Abdominal Pain (Denies), Nausea (Denies), Vomiting (Denies) and Constipation
Objective Data
Data Reviewed
Vital Signs / I&O / Oxygen:
Vital Signs
Temp Pulse Resp BP Pulse Ox
98.4 F 90 21 130/74 94
09/05/25 07:30 09/05/25 06:30 09/05/25 06:30 09/05/25 06:00 09/05/25 06:30
Intake and Output
09/04/25 09/05/25 09/06/25
06:59 06:59 06:59
Intake Total 3329.0 / 3329.0
Output Total 2282.0 / 2282.0
Balance 1047.0 / 1047.0
SaO2 94
Nasal Cannula flow liters per 2
minute
Physical Exam
General: Comfortable
HEENT: Normocephalic
Cardiovascular: S1-S2 and Regular Rhythm
Respiratory: Clear
GI: Other (The lower abdomen is covered by a clean and dry surgical bandage. There is a surgical drain that contains bloody liquid)
Neurology: Awake, Alert and Oriented
Skin: Warm, Dry and Good Color
Labs/Micro/Reports
Lab Data
09/05/25 06:34
Laboratory Results
09/04/25
15:28
PT 14.0
INR 1.03
APTT 23.9
--- NOTE | 2025-09-05 09:03 | W.PN.CARDCBS ---
Today's Communication / Plan
-
Continue aspirin, Toprol, and rosuvastatin.
With continued mild bleeding would hold off on IV heparin for now.
Check repeat echo 09/06
Will need eventual cardiac catheterization, but would prefer to let him recover from his nephrectomy for
Continue to follow kidney function
No ANN/ARB with hypotension and recent nephrectomy
Discussed with patient at length at bedside
Impression / Plan
-
PCP: Dr. Acevedo
Cardiology: Saw Dr. Fontana 2021
Impression:
Admitted following planned left nephrectomy
Myocardial infarction
s/p robotic left nephrectomy 09/04/2025
Postoperative hypotension and blood loss
Left renal pelvic urothelial carcinoma
Abnormal ECG concerning for inferior [place] with ST elevation in leads III and aVF
HTN
Hyperlipidemia
Prediabetes, HgbA1c 6.3% 08/19/2025
Echo 09/04/2025: LVEF 55% and very technically limited study
Plan:
-Patient admitted to [facility] following planned left nephrectomy for suspected carcinoma and cardiology consulted for abnormal ECG postop. Patient had an episode of hematuria evaluated in the ER back in June and then followed up with urology as an
outpatient and CT scan later revealed a left renal pelvic mass. 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
nephrectomy which was ultimately performed today, 09/04/2025. Blood loss was estimated at 2 L. Patient is now in the ICU on Levophed at 6. Postoperative ECG performed and there is ST elevation in leads III and aVF. Patient denies chest pain. No
history of CAD, but patient had a preoperative cardiac clearance back in 2021 for shoulder replacement surgery, but no previous echo or stress test. Patient had a nonstop flight from [place] to [place] on Tuesday night and his car was actually
parked in [place] so then he had to take a train ride to get his car and then drive home, but no leg pain or swelling, no SOB/CP
- Cardiac troponins up to 11. This is not surprising and he likely had a perioperative myocardial infarction. Continue to trend
- He has no symptoms of chest pains or shortness of breath
- Continue aspirin, Toprol, and rosuvastatin
- Still having some bleeding from drain. With no symptoms we will hold off on IV heparin for now.
- Echo with no marked reduction in ejection fraction but very difficult study. Will repeat echo tomorrow to reevaluate LVEF with Definity when patient can roll on side.
- Continue pain control and postoperative care
- He will need a cardiac catheterization, timing will depend on postoperative recovery.
- Creatinine at 1.1 status post nephrectomy and continue to follow-up
- Currently off pressors.
- His urine is clear with no hematuria at this time
- cc time 33 min
Progress Note - Tenterer
Subjective
Date of Service: September 05, 2025
Chest pains or shortness of breath. Sitting in chair in no discomfort
Objective
Labs:
09/05/25 06:34
Labs
Hgb 10.0 g/dL (13.0-18.0) L 09/05/25 06:34
Hct 28.2 % (39.0-52.0) L 09/05/25 06:34
Plt Count 235 10^3/uL (130-400) 09/04/25 13:27
PT 14.0 Sec (11.4-14.6) 09/04/25 15:28
INR 1.03 09/04/25 15:28
APTT 23.9 Sec (23.4-35.0) 09/04/25 15:28
Sodium 132 mmol/L (135-145) L 09/05/25 06:34
Potassium 4.3 mmol/L (3.5-5.1) 09/05/25 06:34
BUN 21 mg/dl (9-20) H 09/05/25 06:34
Creatinine 1.1 mg/dL (0.7-1.3) 09/05/25 06:34
Glucose 136 mg/dl (70-99) H 09/05/25 06:34
Troponins
09/04/25 09/04/25 09/04/25
15:28 19:10 19:30
Troponin I 0.141 H* 0.849 H* D Cancelled
09/05/25 09/05/25
01:24 06:34
Troponin I 4.860 H* D 11.800 H* D
Vital Signs and I&O:
Vital Signs
Temp Pulse Resp BP Pulse Ox
98.4 F 93 21 103/60 94
09/05/25 07:30 09/05/25 08:45 09/05/25 08:45 09/05/25 08:00 09/05/25 08:45
Vital Signs
Temp Pulse Resp BP Pulse Ox
98.4 F 93 21 103/60 94
09/05/25 07:30 09/05/25 08:45 09/05/25 08:45 09/05/25 08:00 09/05/25 08:45
Intake & Output
09/03/25 09/04/25 09/05/25 09/06/25
06:59 06:59 06:59 06:59
Intake Total 3329.0 / 3454.0 125 / 125
Output Total 2282.0 / 2282.0
Balance 1047.0 / 1172.0 125 / 125
Physical Exam
Physical Exam
GEN: No distress, awake, Ox3
HEENT: supple, anicteric, mmm
LUNGS: CTA, no wheezes/rales
CV: Reg, S1/S2, 1/6 syst LSB, no gallop
ABD: soft, BS+, NT/ND
EXT: No edema
NEURO: Gross non-focal
SKIN: No rash
--- NOTE | 2025-09-05 09:16 | ECGCV ---
<Dr. Morales notified of ECG critical value identified by electronic interpretation on ECG completed on <09/05/25>, at <0915>.
[2025-09-05 10:29] LABS: Mean Corp Hgb Conc. 35.6 g/dL (33.0-37.0); Mean Corpuscular Volume 88.1 fL (80.0-94.0); Platelet Count 182 10^3/uL (130-400); Red Cell Dist. Width 14.2 % (11.5-14.5)
[2025-09-05 10:47] LABS: Glycohemoglobin (HgbA1c) 6.0 % (4.0-5.9)
[2025-09-05] MEDS: TOPROL XL 12.5 MG PO (11:05)
[2025-09-05] MEDS: METAMUCIL, KONSYL 1 PACKET PO (11:05)
[2025-09-05] MEDS: TYLENOL 650 MG PO ×2 (11:10→19:26)
[2025-09-05] MEDS: HEPARIN 25000 UNITS/250 ML IV (12:05)
[2025-09-05 12:08] LABS: APTT 25.0 Sec (23.4-35.0)
--- NOTE | 2025-09-05 12:15 | PTCARENOTE ---
Heparin gtt initiated per order 12 noon, no change. Back to bed, resting. Notes passing some flatus/abd grumbling. Metamucil given as ordered. Continues to tolerate clear liquids.
--- NOTE | 2025-09-05 14:25 | CM ---
Initial assessment completed with patient who lives with his in a 3 story plus basement home with B/B on 2nd and 1/2 bath on 1st, 1 step to enter. 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 In the home are crutches,
SPC and RW. No in-home services. No HC-POA. No VA benefits. No psychiatric hospitalizations. C is Dr. Norm Acevedo. Pharmacy is [facility]. Discharge POC: Will need HH RN for mixon and wound care. Preference is HH. Referral
forwarded with specific instructions as follows:
On 09/09/25 in AM, Remove Mixon;
On , 09/12/25 Remove skin vinita-apply benzoin, then apply 1/2 ' full length steri-strips
[2025-09-05] MEDS: SENOKOT 17.2 MG PO (15:01)
--- NOTE | 2025-09-05 17:02 | PTCARENOTE ---
Family visiting, resting unless disturbed. Denies nausea, med as noted, reports improvement in comfort.
--- NOTE | 2025-09-05 18:41 | PTCARENOTE ---
difficult phlebotomy stick 3 RNs, labs obtained and sent. Back to bed after walking to bathroom, no results. order for glycerin suppos obtained.
[2025-09-05 18:43] LABS: Hematocrit 28.9 % (39.0-52.0); Hemoglobin 9.8 g/dL (13.0-18.0)
[2025-09-05] MEDS: GLYCERIN SUPPOSITORY ADULT 1 SUPP RECTAL (18:49)
[2025-09-05 18:53] LABS: APTT 42.6 Sec (23.4-35.0)
[2025-09-05 19:08] LABS: Troponin I 27.700 ng/ml
[2025-09-05] MEDS: SENOKOT 8.6 MG PO (19:26)
--- NOTE | 2025-09-05 21:00 | PTCARENOTE ---
Assumed care of patient. Patient AAOx3 - able to make needs known. No complaints of CP/SOB - SR on the monitor. Surgical sites in tact. MT draining sanguineous drainage - dressing w/ sanguineous drainage - cleaned and redressed w/ drain sponges. Hep
gtt and LR infusing as ordered - see MAR/Worklist.
[2025-09-05] MEDS: CRESTOR 20 MG PO (22:05)
[2025-09-06] VITALS (22 sets, daily range): BP systolic 98–136; BP diastolic 63–79; BMI 33.6
--- NOTE | 2025-09-06 00:15 | PTCARENOTE ---
Patient complaining of 4/10 abd pain - PRN tramadol given - see DEC.
[2025-09-06] MEDS: TYLENOL 650 MG PO ×3 (01:43→20:17)
[2025-09-06 01:54] LABS: Hematocrit 23.8 % (39.0-52.0); Hemoglobin 8.3 g/dL (13.0-18.0); Mean Corp Hgb Conc. 34.9 g/dL (33.0-37.0); Mean Corpuscular Volume 88.5 fL (80.0-94.0); Platelet Count 151 10^3/uL (130-400); Red Cell Dist. Width 14.3 % (11.5-14.5)
[2025-09-06 01:59] LABS: APTT 79.1 Sec (23.4-35.0)
[2025-09-06 02:09] LABS: ALT (SGPT) 35 U/L (0-50); AST (SGOT) 232 U/L (17-59); Albumin 2.8 g/dl (3.5-5.0); Alkaline Phosphatase 43 U/L (38-126); Blood Urea Nitrogen 19 mg/dl (9-20); Calcium 8.0 mg/dl (8.4-10.2); Carbon Dioxide 28 mmol/L (22-30); Estimated Creatinine Clearance 70 ml/min; Glucose 120 mg/dl (70-99); Magnesium 2.1 mg/dl (1.6-2.3); Potassium 4.3 mmol/L (3.5-5.1); Sodium 132 mmol/L (135-145); Total Protein 4.7 g/dl (6.3-8.2); eGFR > 60.00
[2025-09-06 02:15] LABS: Chloride 104 mmol/L (98-107)
[2025-09-06 02:24] LABS: Troponin I 43.400 ng/ml
--- NOTE | 2025-09-06 02:47 | PTCARENOTE ---
Patient's AM labs drawn - Hgb dropped from 9.8 to 8.3. Troponin elevated to 43.4 from 27.7. HAND WINDER notified. Repeat labs ordered for later in day.
[2025-09-06] MEDS: ULTRAM 50 MG PO (04:52)
[2025-09-06] MEDS: HEPARIN 25000 UNITS/250 ML IV (06:29)
[2025-09-06] MEDS: LR 1000 IV ×2 (06:29→18:25)
--- NOTE | 2025-09-06 06:58 | W.PN.HOSP.TC ---
Today's Communication/Plan
-
Monitor H&H hemoglobin> 10
APTT, CBC, CMP
Today echo completed
Assessment / Plan
Assessment / Plan
80-year-old male with k/h/o urothelial cancer, hypertension, dyslipidemia, diverticulosis, aortic atherosclerosis, obesity, history of colostomy, s/p robotic nephroureterectomy for his urothelial cancer with Dr. Sherwin Hoang from urology
presenting with IntraOp blood loss
Vitals: BP 133/71--120/72 CO 86, RR 17, temp 98.6, sat O2 95.
Labs WBC 12 high, hemoglobin 9.8--8.3 low, APTT 79.1 high, platelet count WNL.
# Hypotension secondary to IntraOp blood loss:
His BP 103/60, CO 93, RR 21, temp 98.4, oxygen 94 in 2 L of oxygen
BP 107/70 , after Levophed infusion.
2 L blood loss IntraOp and transfused 2 units of packed RBCs.
Monitor I/O---> UO = 125 ml
Current creatinine is 1
Monitor electrolytes, bicarb, magnesium.
Urinalysis in future for routine.
# Myocardial infarction type II:
EKG :
-New 1mm ST elevations in lead III and aVF with depressions in aVL on 09/04
-Compared to prior EKG in 07/2025, new
troponin 4.8 H---11.8 high-- 27.7--43.4 uptrending,
APTT 79.1 high, platelet count WNL, currently patient is not heparin drip in spite of bleeding risk.
-Cardiology consulted
- Type II myocardial infarction-asymptomatic, with continuous uptrend of troponin, given the recent blood loss IntraOp, below ECHO findings;
-Will postpone cardiac catheterization in future.
Currently off pressors, Monitor blood pressure.
Continue aspirin, Toprol, and rosuvastatin.
Echo:
1. Right ventricular size and systolic functions normal.
2. Left ventricular ejection fraction is 55% by visual assessment.
3. There was no clear regional wall motion abnormalities on this technically difficult study.
4. Moderate concentric left ventricular hypertrophy.
5. Right ventricular size and systolic function are within normal limits.
6. Normal sized aortic root at 3.5 cm, Dilated Ascending Aorta at 4.3 cm.
7. Thickened aortic valve with some level of stenosis but difficult to assess due to technically difficult study.
8. There are no prior studies available for comparison.
Monitor troponin, renal function,
Avoid ANN/ARB's with hypotension and recent nephrectomy.
Shifter the patient to IMU.
#Constipation secondary to post op paralytic ileus:
On 09/05 abdominal x-ray: Probable diffuse enterocolitis/ileus and constipation. No obstruction.
Continue senna, psyllium, docusate.
# Acute anemia secondary to blood loss:
Currently Hb 10.5 low---> 12.9--->11.6-->10--8.3low. 1 unit packed RBC transfused.
Maintain Hb- 10, monitor H&H by given the history of [place], recent surgery.
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
Tramadol as needed.
# Hyperlipidemia:
Continue Rosuvastatin 20 mg tablet 20 mg
# Hypertension:
Held losartan 40 mg tablet (Benicar)
# Monitor CBG-blood glucose 191 high.
# Urology recommended clear diet and move around.
# AST elevated.
DVT: Heparin, SCD
Disposition: IMU
Anticipated Discharge: > 48 hours
Subjective/Interval History
-
Date of Service: September 06, 2025
Overnight the patient passed flatus, felt better regard to his abdomen discomfort comparing from yesterday. He has no concerns for chest pain, palpitation, nausea, vomiting, dizziness, shortness of breath(except while on taking deep breath),
abdominal pain, hematuria, hematochezia.
However he has no bowel movements, and needs laxatives.
Objective Data
-
Labs:
Laboratory Results
09/05/25 09/06/25 09/06/25
18:33 01:33 01:34
WBC 12.0 H
Hgb 8.3 L
Hct 23.8 L
Plt Count 151
APTT 42.6 H 79.1 H
Sodium 132 L
Potassium 4.3
Chloride 104
Carbon Dioxide 28
BUN 19
Creatinine 1.0
Glucose 120 H
Calcium 8.0 L
Total Bilirubin 0.5
AST 232 H
ALT 35
Alkaline Phosphatase 43
09/06/25 09/06/25
07:45 10:00
WBC
Hgb Pending
Hct Pending
Plt Count
APTT Pending
Sodium
Potassium
Chloride
Carbon Dioxide
BUN
Creatinine
Glucose
Calcium
Total Bilirubin
AST
ALT
Alkaline Phosphatase
Vital Signs:
Vital Signs
Temp Pulse Resp BP Pulse Ox
98.6 F 86 17 120/72 95
09/05/25 23:28 09/06/25 05:30 09/06/25 05:30 09/06/25 05:00 09/06/25 05:30
I&O
09/04/25 09/05/25 09/06/25
06:59 06:59 06:59
Intake Total 3329.0 / 3454.0 4442 / 4442
Output Total 2282.0 / 2282.0 1230 / 1230
Balance 1047.0 / 1172.0 3212 / 3212
Review of Systems
-
History Source: Patient
All other systems: Reviewed and negative
Physical Exam
-
General: Well Developed, Well Nourished and Obese
HEENT: Other (Oxygen saturation maintaining in the normal room air.)
Respiratory: Clear to Auscultation
Cardiac: Regular Rhythm and S1/S2
GI: Soft, Normal Bowel Sounds (Hyperechoic bowel sounds. 5+) and Distended
Genito-urinary: No Costovertebral Tender
Musculoskeletal: No Clubbing
Neuro: AO x 3
--- NOTE | 2025-09-06 07:22 | W.PN.URO.CBU ---
Today's Communication / Plan
-
if H&H drops further since the initiation of Heparin, additional transfusion of blood might become necessary
advance diet
increase activity
Assessment / Plan
-
overall stable -- downgraded to IMU
surgical drain output has significantly diminished
H&H dropped after initiation of Heparin
Diagnosis
-
Date of Service: September 06, 2025
-
Patient Diagnosis:
Post Op Day:
Patient Diagnosis:
Left Renal Urothelial Carcinoma
Intraperitoneal and Retroperitoneal Adhesions, extenive
Blood-loss anemia
s/p Robotic Left Radical Nephroureterectomy and lysis of Adhesions
Post Op Day: 2
Subjective
-
'gas pains that are relieved when I fart'.
tolerated CL diet
has been OOB
modest incisional pain
no angina
no dyspnea
Objective
-
Vital Signs
Temp Pulse Resp BP Pulse Ox
98.6 F 86 17 120/72 95
09/05/25 23:28 09/06/25 05:30 09/06/25 05:30 09/06/25 05:00 09/06/25 05:30
Intake and Output
09/05/25 09/06/25 09/07/25
06:59 06:59 06:59
Intake Total 3329.0 / 3454.0 4442 / 4442
Output Total 2282.0 / 2282.0 1230 / 1230
Balance 1047.0 / 1172.0 3212 / 3212
Intake:
Oral fluids 100 / 100 1410 / 1410
IV fluids (Total) 3229.0 / 3354.0 3032 / 3032
Heparin 132 / 132
Lr 1,000 ml @ 125 mls/hr IV . 2124 / 2250 2900 / 2900
Q8H NORMA Rx#:[id number]
Norepinephrine 104.0 / 104.0
Normosol 900 / 900
Tranexamic Acid 100 / 100
Output:
Drain Output (Total) 855 / 855 180 / 180
Lower Abdomen Fausto-Martines 855 / 855 180 / 180
Urine, Lopez 1427.0 / 1427.0 1050 / 1050
Laboratory Results
09/06/25 01:33
AM H&H pending
Physical Exam
-
General - well developed, well nourished, no acute distress
Abdomen - soft, positive bowel sounds
Drain: thin, dark bloody fluid
Genitalia - Lopez draining yellow urine
Skin - warm & dry with no rash
Neuro - AOx3, no motor deficits
Extremities - no clubbing, no cyanosis, no edema
Incisions - stapled, clean, dry
Dressings - removed
--- NOTE | 2025-09-06 08:05 | W.PN.INTV ---
Today's Communication / Plan
Recommendations
Continue to follow CBC
Continue to follow LFTs
1 unit pRBCs
Downgrade today
Assessment
-
Assessment:
This is an 80 y/o male with pertinent pmhx of left urothelial carcinoma who presented to the hospital today for an elective left nephroureterectomy who reportedly experienced 2L blood loss in the ED and experienced persistent hypotension requiring
levophed despite 2 units pRBCs being transfused who now has new EKG changes on routine admission EKG.
Plan:
Circulatory Shock in the setting of acute blood loss during surgery
Patient underwent elective left nephroureterectomy on 09/04 reportedly complicated by loss of 2L of blood an tranexamic acid and subsequently developed persistent hypotension despite 2 units pRBCs being transfused. Total operative time ~5 hours
DD includes hypotension from acute blood loss vs anesthesia reaction vs transient shock due to kidney surgery
S/p 1 time dose 2g Ceftriaxone for surgery
Hemoglobin 09/04 initially 10.5 which increased to 12.9, now decreased to 8.3
Thus far he has remained fever-free, has not required Levophed for >24 hours
Continue to monitor CBC
Spoke to primary team about his case today. Given decrease in hemoglobin, they plan to transfuse 1 unit pRBCs and recheck his hemoglobin later this afternoon. Given decrease in hemoglobin, would agree with this plan
Plan to transfuse as necessary for hemoglobin less than 7.
Low threshold to start antibiotics (Fever, increased pressor requirements)
Continue Heparin
EKG changes
New 1mm ST elevations in lead III and aVF with depressions in aVL on 09/04
Compared to prior EKG in 07/2025, new
Currently remains asymptomatic.
Troponins uptrending, continue to follow to peak
Cardiology is following, will appreciate their insight.
Continue home Rosuvastatin
Continue metoprolol 12.5mg
Monitor for symptom development.
Constipation
Patient reports ongoing constipation at baseline, worsened with opiates
Continue Colace, Metamucil, Senna
Consider enema if needed for persistent constipation. Patient is agreeable if needed
Elevated AST
Suspect shock liver
Continue to trend to peak
Left urothelial carcinoma S/p elective left nephroureterectomy
Most recent CT scan from 07/22/2025 showed likely urothelial carcinoma in the left renal pelvis.
S/p elective left nephroureterectomy today complicated by blood loss (see above)
Operation note pending
Follow pathology from OR
Post-operative management per Urology
Subjective Dataa
Subjective Data
Date of Service:
Date of Service: September 06, 2025
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
Subjective:
Patient is doing well today. He remains free of chest pain, shortness of breath, or surgical site pain. He states he has not had a bowel movement from yesterday but has been passing gas with relief in his symptoms of constipation. Overall, he feels
very good without any concerns or complaints.
Review of Systems
Cardiopulmonary: Dyspnea (Denies) and Chest Pain (Denies)
GI: Abdominal Pain (Denies), Nausea (Denies), Vomiting (Denies) and Constipation
Objective Data
Data Reviewed
Vital Signs / I&O / Oxygen:
Vital Signs
Temp Pulse Resp BP Pulse Ox
98.6 F 86 17 120/72 95
09/05/25 23:28 09/06/25 05:30 09/06/25 05:30 09/06/25 05:00 09/06/25 05:30
Intake and Output
09/05/25 09/06/25 09/07/25
06:59 06:59 06:59
Intake Total 3329.0 / 3454.0 4442 / 4442
Output Total 2282.0 / 2282.0 1230 / 1230
Balance 1047.0 / 1172.0 3212 / 3212
SaO2 95
Nasal Cannula flow liters per 2
minute
Physical Exam
General: Comfortable
HEENT: Normocephalic
Cardiovascular: S1-S2 and Regular Rhythm
Respiratory: Clear
GI: Other (The lower abdomen is partially covered by a surgical bandage. The incision sites that are visible contain surgical stables and appear clean and dry.)
Neurology: Awake, Alert and Oriented
Skin: Warm, Dry and Good Color
Labs/Micro/Reports
Lab Data
09/06/25 01:33
Laboratory Results
09/05/25 09/05/25 09/06/25
11:19 18:33 01:34
APTT 25.0 42.6 H 79.1 H
Microbiology
09/04/25 19:12 Blood/Venous Blood Culture - Preliminary
No Growth in 24 hours- Final report to follow
09/04/25 15:28 Blood/Venous Blood Culture - Preliminary
No Growth in 24 hours- Final report to follow
--- NOTE | 2025-09-06 08:11 | PTCARENOTE ---
0700 assumed care; patient in bed, does not appear in distress.
- AAO x3
-Denies chest pain; BP 123/69 (MAP 84) Normal Sinus 85 on telemetry no edema ; ECHO in progress ; Heparing qtt 09/1200 PTT send, results pending
-Lungs clear SpO2: 93%RA No cough no SOB ; Troponing send results pending
-Abdomen round; tender; Hyperactive Bowel sound x 4 Quadrants ; Passing flatus; No Bowel movement post surgery, on colace and Metamucil ; J-P draining bloody drainage; Abdominal incision with vinita ECONOMIC DEVELOPMENT SPECIALIST ; no redness ; Diet upgraded from clear to
Regular
-Indwelling Lopez (placed per urology order ) draing clear yellow urine denies discomfort
-Lines: peripheral lines
-Hgb dropped to 8.3 from 9.8 this am. 1 Units PRBC ordered .
[2025-09-06 08:24] LABS: APTT 84.5 Sec (23.4-35.0)
[2025-09-06 08:48] LABS: Troponin I 51.600 ng/ml
--- NOTE | 2025-09-06 09:01 | CARDSERVDEF ---
Echocardiogram with Definity completed after protocol screening completed. Allergies verified.
Patent IV site: __Rt hand_
IV site flushed with 0.9% NaCl pre and post administration.
Diluted bolus method utilized to enhance visualization of ventricular bruno.
Total volume given: 4.0___ mL
Patient tolerated all procedures well without complications.
[2025-09-06] MEDS: TOPROL XL 12.5 MG PO (09:13)
[2025-09-06] MEDS: LOW STRENGTH ASPIRIN 81 MG PO (09:14)
[2025-09-06] MEDS: METAMUCIL, KONSYL 1 PACKET PO (09:14)
[2025-09-06] MEDS: COLACE 100 MG PO ×3 (09:15→21:51)
[2025-09-06] MEDS: SENOKOT 8.6 MG PO ×2 (09:28→20:17)
--- NOTE | 2025-09-06 09:45 | PTCARENOTE ---
PTT 84.5 . Second PTT Within target range. No change in rage (1200/12ml) Next PTT in am
1 unit PRBC per order
--- NOTE | 2025-09-06 10:48 | VNURNOTE ---
Home Health Liaison met with patient and spouse at bedside to discuss [facility] nurse/therapy, visits, schedule and homebound status. Patient is agreeable and understands that visits at home will be 2-3 x per week to assess and teach medical and mixon
management. Patient is aware that [facility] will contact them for start of care within a week after discharge from . Provided contact number for [facility].
[facility] referral completed in [facility].
--- NOTE | 2025-09-06 11:32 | PTCARENOTE ---
Patient received from ICU. Patient AAO, VSS. Has some complaints of some abdominal pain/pressure but tolerable at this time. Left sided MT drain, dressing CDI. Surgical sites approximated and vinita intact. Lopez in place, urology
determination. Heparin gtt @ 1200 units, therapeutic. Patient currently finished a unit of PRBC for Hgb of 8.3, recheck Hgb and Trop later. LR @ 100mL/hr through IV to restart after PRBC. No testing scheduled at this time. Call scott in reach.
--- NOTE | 2025-09-06 14:17 | CM ---
Patient underwent elective left nephroureterectomy on 09/04 reportedly complicated by loss of 2L of blood so now moved from the ICU to the IMU. Patient is continuing to be monitored. PT/OT not seen the patient yet, patient is from home independent
of ADL's and currently in the chair. PLAN: Anticipate Home PT/ VN vs. No Needs.
--- NOTE | 2025-09-06 14:20 | W.PN.CARDCBS ---
Today's Communication / Plan
-
Continue IV heparin/aspirin and monitor hemoglobin, MT drainage closely
Trend troponin
Monitor telemetry
Timing of cardiac catheterization to be determined
Impression / Plan
-
PCP: Dr. Acevedo
Cardiology: Saw Dr. Fontana 2021
Impression:
Admitted following planned left nephrectomy
Post op Inferior STEMI 09/04/25
s/p robotic left nephrectomy 09/04/2025
Postoperative hypotension and blood loss
Left renal pelvic urothelial carcinoma
HTN
Hyperlipidemia
Prediabetes, HgbA1c 6.3% 08/19/2025
Echo 09/04/2025: LVEF 55% and very technically limited study
Plan:
Medically complex 80-year-old gentleman admitted with hematuria found to have left Renal Urothelial Carcinoma s/p Robotic Left Radical Nephroureterectomy and lysis of Adhesions
-Postoperative course has been complicated by hypotension and blood loss requiring transfusions. Patient is currently receiving third unit of packed red blood cells
-Postoperative course also complicated by myocardial infarct
-Postop ileus with abdominal x-ray 09/05/2025 showing probable diffuse enterocolitis/ileus and constipation.
-Patient has MT drain with bloody drainage.
-Mixon catheter with clear urine
- Monitor H&H
-Creatinine 1.0.
-Urology following
Postoperative inferior STEMI
- Patient is hemodynamically stable and denies chest pain
- No symptoms of heart failure. No cardiac arrhythmia on telemetry.
- Troponin is still climbing up to 51.6, trend to peak
- Repeat limited 2D echocardiogram with echo contrast noting preserved LV systolic function with no obvious regional wall motion abnormality however study is technically difficult despite IV echo contrast. This is not surprising and he likely had a
perioperative myocardial infarction. Continue to trend
- For now we will continue plan for medical therapy with eventual plan for left heart catheterization
- Continue aspirin and IV heparin drip. If hemoglobin allows would continue IV heparin drip another 24 hours.
- Continue rosuvastatin 20 mg daily and metoprolol 12.5 mg daily
-Check lipid profile tomorrow
-Discussed with patient and family at bedside. Case was previously discussed with interventional cardiology and will review plan local driver on-call
Prediabetes with hemoglobin A1c 6.3%
- Defer to medicine management. Could consider SGLT2 inhibitor once he is further recovered
Okay to downgrade to IMU status.
Progress Note - Behavioral Medical Director
Subjective
Date of Service: September 06, 2025
Patient seen and examined with and nursing at bedside. Offers no complaints. Stomach is distended but is passing gas; no bowel movement. Denies chest pain/pressure
Objective
Labs:
09/06/25 01:33
Labs
Hgb 8.3 g/dL (13.0-18.0) L 09/06/25 01:33
Hct 23.8 % (39.0-52.0) L 09/06/25 01:33
Plt Count 151 10^3/uL (130-400) 09/06/25 01:33
PT 14.0 Sec (11.4-14.6) 09/04/25 15:28
INR 1.03 09/04/25 15:28
APTT 84.5 Sec (23.4-35.0) H 09/06/25 08:03
Sodium 132 mmol/L (135-145) L 09/06/25 01:33
Potassium 4.3 mmol/L (3.5-5.1) 09/06/25 01:33
BUN 19 mg/dl (9-20) 09/06/25 01:33
Creatinine 1.0 mg/dL (0.7-1.3) 09/06/25 01:33
Glucose 120 mg/dl (70-99) H 09/06/25 01:33
Troponins
09/04/25 09/04/25 09/04/25
15:28 19:10 19:30
Troponin I 0.141 H* 0.849 H* D Cancelled
09/05/25 09/05/25 09/05/25
01:24 06:34 14:30
Troponin I 4.860 H* D 11.800 H* D Cancelled
09/05/25 09/06/25 09/06/25
18:33 01:33 08:03
Troponin I 27.700 H* 43.400 H* D 51.600 H*
Vital Signs and I&O:
Vital Signs
Temp Pulse Resp BP Pulse Ox
98.1 F 78 15 107/68 92
09/06/25 12:38 09/06/25 13:30 09/06/25 13:30 09/06/25 12:38 09/06/25 13:30
Vital Signs
Temp Pulse Resp BP Pulse Ox
98.1 F 78 15 107/68 92
09/06/25 12:38 09/06/25 13:30 09/06/25 13:30 09/06/25 12:38 09/06/25 13:30
Intake & Output
09/04/25 09/05/25 09/06/25 09/07/25
06:59 06:59 06:59 06:59
Intake Total 3329.0 / 3454.0 4442 / 4554 988 / 988
Output Total 2282.0 / 2282.0 1230 / 1230 240 / 240
Balance 1047.0 / 1172.0 3212 / 3324 748 / 748
Physical Exam
Physical Exam
GEN: No distress, awake, Ox3
HEENT: supple, anicteric, mmm
LUNGS: CTA, no wheezes/rales
CV: Reg, S1/S2, 1/6 syst LSB, no gallop
ABD: Firm and distended. Mild tenderness without rebound. Positive vinita. Positive MT drain with bloody fluid
EXT: No edema
NEURO: Gross non-focal
: mixon cath- clear
[2025-09-06 15:00] LABS: Hematocrit 29.2 % (39.0-52.0); Hemoglobin 9.5 g/dL (13.0-18.0)
[2025-09-06 15:36] LABS: Troponin I 43.300 ng/ml
[2025-09-06] MEDS: MYLICON 80 MG PO ×2 (16:24→20:18)
[2025-09-06] MEDS: CRESTOR 20 MG PO (21:51)
[2025-09-06 21:53] LABS: Troponin I 35.400 ng/ml
--- NOTE | 2025-09-06 23:58 | PTCARENOTE ---
Assumed care of Pt from day RN. Pt currently on heparin gtt 1200U/hr. Pt MT dressing saturated with sanguinous fluid through dressing and gown. Dressing replaced and reinforced. No tenderness or pain around site. Night WOOD CUT ENGRAVER made aware of amount of
drainage on rounds. Follow up H&H ordered. Trop continues to trend down.
[2025-09-07] VITALS (19 sets, daily range): BP systolic 111–155; BP diastolic 63–97; BMI 34.5
[2025-09-07 00:47] LABS: Hematocrit 24.8 % (39.0-52.0); Hemoglobin 8.3 g/dL (13.0-18.0)
--- NOTE | 2025-09-07 02:14 | W.PN.UPDATE ---
Update Note
Progress Note Update
5 RN noted trickles of blood coming from around site. Dressing reinforced. Closely watching due to being on heparin gtt. will check HH at midnight. Last one done at 1500 9.5
0100 HH 8.3 Still with bloody drainage at site. Actual MT output 20ml. Will order one unit PRBC.
0200 RN noted rhythm change (long VT). EKG confirms Mobitz 1wenkeback. Will hold am toprol. Pt asymptomatic.
[2025-09-07] MEDS: HEPARIN 25000 UNITS/250 ML IV (02:24)
[2025-09-07] MEDS: TYLENOL 650 MG PO (02:25)
[2025-09-07] MEDS: MYLICON 80 MG PO (02:25)
--- NOTE | 2025-09-07 02:45 | PTCARENOTE ---
Addendum entered by Calli Kwon RN 09/07/25 04:00:
PRBC currently hanging. Pt appearing to be tolerating well. Vials stable at this time. Pt has no complaints at this time. Morning labs drawn before blood hung.
Original Note:
Pt continued to have bloody drainage around MT site, Quick clot dressing applied. h&h redrawn. Pt rhythm appearing different with prolong NC. EKG showing 2nd degree (mobitz 1). Night HELP DESK REP made aware. Pt asymptomatic, Pt has no complaints at this time.
Awaiting PRBC to be ready.
[2025-09-07 04:25] LABS: APTT 72.0 Sec (23.4-35.0)
[2025-09-07 04:36] LABS: Hematocrit 25.3 % (39.0-52.0); Hemoglobin 8.0 g/dL (13.0-18.0); Mean Corp Hgb Conc. 31.6 g/dL (33.0-37.0); Mean Corpuscular Volume 94.8 fL (80.0-94.0); Platelet Count 126 10^3/uL (130-400); Red Cell Dist. Width 14.3 % (11.5-14.5)
[2025-09-07 04:46] LABS: ALT (SGPT) 33 U/L (0-50); AST (SGOT) 132 U/L (17-59); Albumin 2.7 g/dl (3.5-5.0); Alkaline Phosphatase 44 U/L (38-126); Blood Urea Nitrogen 15 mg/dl (9-20); Calcium 8.0 mg/dl (8.4-10.2); Carbon Dioxide 28 mmol/L (22-30); Chloride 104 mmol/L (98-107); Estimated Creatinine Clearance 65 ml/min; Glucose 107 mg/dl (70-99); Potassium 4.1 mmol/L (3.5-5.1); Sodium 132 mmol/L (135-145); Total Protein 4.6 g/dl (6.3-8.2); eGFR > 60.00
[2025-09-07] MEDS: METAMUCIL, KONSYL 1 PACKET PO (07:43)
[2025-09-07] MEDS: SENOKOT 8.6 MG PO (07:43)
[2025-09-07] MEDS: COLACE 100 MG PO ×3 (07:43→21:09)
[2025-09-07] MEDS: LOW STRENGTH ASPIRIN 81 MG PO (07:43)
[2025-09-07] MEDS: LR 1000 IV (07:44)
--- NOTE | 2025-09-07 08:14 | W.PN.HOSP.TC ---
Today's Communication/Plan
-
Trend H&H and transfuse PRBC as needed
Repeat abdomen x-ray
Hold beta-laquita due to Mobitz 1
Continue IV heparin/aspirin/statin
Plan left heart cath Tuesday
Assessment / Plan
Assessment / Plan
#Acute coronary syndrome
#Dyslipidemia
- Likely perioperative event within RCA distribution; cannot rule out type II event with likely underlying CAD
- LORENZO in inferior leads with reciprocal change anteriorly; troponin peaked at 51, no anginal equivalents
- Reportedly lost 2 L of blood during surgical procedure, likely contributed to development
- Currently on high intensity statin, aspirin, IV heparin drip and beta-laquita
- Was on beta-laquita though discontinued due to Mobitz 1 heart block
- TTE x 2 with normal LVEF, no wall motion abnormality reported
Plan
- Will continue aspirin and statin, IV heparin drip
- Hold beta-laquita for now with Mobitz 1 AVB
- Continue to monitor on telemetry
- Plan for left heart cath likely Tuesday
- Hold off on further troponin trend
#Mobitz type I AVB
- Yesterday evening had telemetry consistent with Mobitz 1 AVB
- Metoprolol XL was held at that time, remains on telemetry
- Continue to monitor telemetry
- No indication for PPM
#Postoperative acute blood loss anemia
- Reportedly with 2 L blood loss in the OR; s/p 4 unit PRBC here
- Hemoglobin continues to drop while on IV heparin postoperatively
- Most recent hemoglobin near 8.0, drawn around time 4th unit was ordered
- Will continue to trend CBC and transfuse for hemoglobin goal near 10 with ACS
- Will need to continue with IV heparin and aspirin at this time
- Repeat H/H at 1 PM today and additional transfusion if needed
#Postoperative ileus
- Suspect he had a brief episode; morning after procedure was not passing flatus and had distention
- Abdomen x-ray at that time showed dilated bowel loops; bowel status improved fairly quickly
- Did not require any intervention such as NGT
- Order repeat AXR to reassess
- Appears to be improving
#Circulatory shock
- Suspect hemorrhagic etiology with operative blood loss as above
- Was on Levophed briefly though was weaned off with fluids and blood transfusions
- Continue to monitor with MAP goal >65
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
- Tramadol as needed
#Primary hypertension
- Home regimen includes telmisartan 40 mg nightly
- No known history of hypertensive systemic disease
- ARB currently held perioperatively, can likely resume within next 24 to 48 hours
Diet: Regular
DVT: IV heparin drip
CODE STATUS: Full
Discussed with cardiology
Anticipated Discharge: > 48 hours
Subjective/Interval History
-
Date of Service: September 07, 2025
Seen and examined at the bedside. Overnight hemoglobin dropped to 8.3, additional 1 unit PRBC was ordered. AFVSS this morning off pressors
Continues to feel well outside of some gas pain though denies any known bleeding, worsening abdomen pain, chest pain or anginal equivalents
Troponin now downtrending. Repeat echo yesterday with preserved LVEF and no significant WMA
Objective Data
-
Labs:
Laboratory Results
09/07/25 09/07/25 09/07/25
00:36 03:51 04:00
WBC 8.8
Hgb 8.3 L 8.0 L
Hct 24.8 L 25.3 L
Plt Count 126 L
APTT 72.0 H
Sodium 132 L
Potassium 4.1
Chloride 104
Carbon Dioxide 28
BUN 15
Creatinine 1.1
Glucose 107 H
Calcium 8.0 L
Total Bilirubin 0.7
AST 132 H
ALT 33
Alkaline Phosphatase 44
09/07/25
10:50
WBC
Hgb
Hct
Plt Count
APTT Pending
Sodium
Potassium
Chloride
Carbon Dioxide
BUN
Creatinine
Glucose
Calcium
Total Bilirubin
AST
ALT
Alkaline Phosphatase
Vital Signs:
Vital Signs
Temp Pulse Resp BP Pulse Ox
97.8 F 72 16 116/67 97
09/07/25 07:10 09/07/25 06:17 09/07/25 06:17 09/07/25 06:17 09/07/25 06:17
I&O
09/06/25 09/07/25 09/08/25
06:59 06:59 06:59
Intake Total 4442 / 4554 2021 / 2021 480 / 480
Output Total 1230 / 1230 1470 / 1470 970 / 970
Balance 3212 / 3324 552 / 552 -490 / -490
Review of Systems
-
History Source: Patient
All other systems: Reviewed and negative
Physical Exam
-
General: Well Developed, No Apparent Distress and Obese
HEENT: Normocephalic, Atraumatic, Moist Mucous Membranes and Anicteric
Respiratory: Clear to Auscultation and Non Labored Respirations; Negative Accessory Resp Muscle Use
Cardiac: Regular Rhythm and S1/S2; Negative Murmur, Rub or Gallop
GI: Soft, Nontender, Normal Bowel Sounds and Distended
Musculoskeletal: No Clubbing, No Cyanosis and No Edema
Skin: Warm and Dry; Negative Rash
Neuro: AO x 3, Nonfocal/Grossly Intact and Central Nerve's Intact; Negative Tremors
Psych: Calm
Data Reviewed
-
Labs: Labs Reviewed by me, Discussed with Physician and Discussed with Patient
[2025-09-07] MEDS: FLEET MINERAL OIL ENEMA 133 ML RECTAL (11:12)
--- NOTE | 2025-09-07 11:25 | PTCARENOTE ---
Fleet enema given per order. Patient tolerated well. Call scott within reach for when patient needs to have a BM.
[2025-09-07 11:28] LABS: APTT 65.1 Sec (23.4-35.0)
--- NOTE | 2025-09-07 12:31 | W.PN.URO.CBU ---
Addendum entered and electronically signed by Dee Dee Best MD 09/07/25 12:46:
80M POD#3 s/p robotic left nephroureterctomy, KANNAN. Post-operative acute blood loss anemia requiring blood transfusion* and ACS requiring hep gtt
Original Note:
Today's Communication / Plan
-
NA
Assessment / Plan
-
80M POD#3 s/p robotic left nephroureterctomy, KANNAN. Post-operative acute blood loss anemia requiring and requiring hep gtt
- Trend H/H
- Continue hep gtt for now - however if Hgb continues to drift may need to weight risks/benefits of AC in acute post-op setting
- Regular diet
- Pt would like to try an enema for BMs
- Continue mixon and MT drain
- Ambulate / OOB
- Incentive spirometry - wean O2
Diagnosis
-
Date of Service: September 07, 2025
-
Patient Diagnosis:
Post Op Day:
Patient Diagnosis:
Post Op Day:
Patient Diagnosis:
Left Renal Urothelial Carcinoma
Intraperitoneal and Retroperitoneal Adhesions, extenive
Blood-loss anemia
s/p Robotic Left Radical Nephroureterectomy and lysis of Adhesions
Post Op Day: 2
Subjective
-
Doing well post-operatively. Awake/alert
Received 1u pRBC transfusion yesterday, remains on hep gtt per cardiology recommendations
Minimal appetite, no nausea/vomiting, no light-headedness
Passing gas, no BMs
Feels bloated and would like to have BM
Ambulating minimal yesterday, plan to do more today
Objective
-
Vital Signs
Temp Pulse Resp BP Pulse Ox
98.4 F 96 17 122/65 96
09/07/25 11:18 09/07/25 12:06 09/07/25 12:06 09/07/25 12:10 09/07/25 12:00
Intake and Output
09/06/25 09/07/25 09/08/25
06:59 06:59 06:59
Intake Total 4442 / 4554 202 / 2021 480 / 480
Output Total 1230 / 1230 1470 / 1470 1030 / 1030
Balance 3212 / 3324 552 / 552 -550 / -550
Intake:
Oral fluids 1410 / 1410 240 / 240 480 / 480
IV fluids (Total) 3032 / 3144 1048 / 1048
Heparin 132 / 144 48 / 48
Lr 1,000 ml @ 125 mls/hr IV . 2900 / 3000 300 / 300
Q8H NORMA Rx#:[id number]
IV piggybacks /
Blood Products 150 / 150
Packed red blood cells 150 / 150
Blood Product Amount Infused ( 500 / 500
mL)
Packed Rbc Leukoreduced Unit 250 / 250
[id number]
Packed Rbc Leukoreduced Unit 250 / 250
[id number]
Output:
Drain Output (Total) 180 / 180 170 / 170 130 / 130
Lower Abdomen Fausto-Martines 180 / 180 170 / 170 130 / 130
Urine, Mixon 1050 / 1050 1300 / 1300 900 / 900
Laboratory Results
09/07/25 03:51
Physical Exam
-
General - well developed, well nourished, no acute distress
Chest - clear bilaterally
Abdomen - soft, moderate abd distension, tympanic throughout, appropriately TTP, LLQ MT with minimal sanguinous output
Genitalia - mixon clear yellow
Skin - warm & dry with no rash
Neuro - AOx3, no motor deficits
Extremities - no clubbing, no cyanosis, no edema
Incision - clean, dry
Dressing - clean, dry, intact
--- NOTE | 2025-09-07 13:23 | PTCARENOTE ---
Patient AOx3. On RA with SpO2 greater than 92%. Wenckebach on the monitor. BP stable. Lopez draining yellow urine. Hyperactive bowel sounds. Patient states that he is passing gas. See MAR for bowel regimen. L sided MT drain draining sanguinous
drainage. Midline incision CINDY with vinita intact. Standby assist when OOB. Patient walked multiple laps around unit during shift. Poor appetite. Heparin gtt running per order. IVF running per order. Call scott within reach, bed in lowest position,
and bed of wheels locked.
[2025-09-07 13:35] LABS: Hematocrit 28.2 % (39.0-52.0); Hemoglobin 9.3 g/dL (13.0-18.0); Mean Corp Hgb Conc. 33.0 g/dL (33.0-37.0); Mean Corpuscular Volume 91.3 fL (80.0-94.0); Nucleated Red Blood Cells % 0 % (-); Platelet Count 146 10^3/uL (130-400); Red Cell Dist. Width 14.6 % (11.5-14.5)
--- NOTE | 2025-09-07 15:42 | W.PN.CARDCBS ---
Today's Communication / Plan
-
Stop IV heparin
Impression / Plan
-
PCP: Dr. Acevedo
Cardiology: Saw Dr. Fontana 2021
Impression:
Admitted following planned left nephrectomy
Post op Inferior STEMI 09/04/25
s/p robotic left nephrectomy 09/04/2025
Postoperative hypotension and blood loss
Left renal pelvic urothelial carcinoma
HTN
Hyperlipidemia
Prediabetes, HgbA1c 6.3% 08/19/2025
Echo 09/04/2025: LVEF 55% and very technically limited study
Plan:
Medically complex 80-year-old gentleman admitted with hematuria found to have left Renal Urothelial Carcinoma s/p Robotic Left Radical Nephroureterectomy and lysis of Adhesions
-Postoperative course has been complicated by hypotension and blood loss requiring transfusions. Patient is currently receiving third unit of packed red blood cells
-Postoperative course also complicated by myocardial infarct
-Postop ileus with abdominal x-ray 09/05/2025 showing probable diffuse enterocolitis/ileus and constipation- Improving and tolerating diet
-Patient has MT drain with bloody drainage.
-Mixon catheter with clear urine
- Monitor H&H
-Creatinine 1.1.
-Urology following
Postoperative inferior STEMI , Peak troponin 51.6
- Patient is hemodynamically stable and denies chest pain at rest or with unit ambulation
- No symptoms of heart failure.
- Asymptomatic Wenckebach noted on industrial maintenance mechanic. No A-fib or VT
- Repeat limited 2D echocardiogram with echo contrast noting preserved LV systolic function with no obvious regional wall motion abnormality however study is technically difficult despite IV echo contrast.
-Discontinue IV heparin
-Continue aspirin. Would consider adding Plavix prior to discharge once hemoglobin remained stable and bleeding postop subside
- For now we will continue plan for medical therapy with eventual plan for left heart catheterization, Timing to be determined.
- Continue rosuvastatin 20 mg daily
-Check lipid profile tomorrow
-Discussed with patient and family at bedside. Case was previously discussed with interventional cardiology
Prediabetes with hemoglobin A1c 6.3%
- Defer to medicine management. Could consider SGLT2 inhibitor once he is further recovered
Progress Note - Lifter/Driver
Subjective
Date of Service: September 07, 2025
Patient seen and examined with at bedside. Offering no complaints and states abdominal distention/gas is improved and he is not requiring pain medications. No chest pain or pressure. No shortness of breath. Ambulated with nursing in halls
without cardiac symptoms
Objective
Labs:
09/07/25 13:13
09/07/25 03:51
Labs
Hgb 9.3 g/dL (13.0-18.0) L 09/07/25 13:13
Hct 28.2 % (39.0-52.0) L 09/07/25 13:13
Plt Count 146 10^3/uL (130-400) 09/07/25 13:13
PT 14.0 Sec (11.4-14.6) 09/04/25 15:28
INR 1.03 09/04/25 15:28
APTT 65.1 Sec (23.4-35.0) H 09/07/25 11:05
Sodium 132 mmol/L (135-145) L 09/07/25 03:51
Potassium 4.1 mmol/L (3.5-5.1) 09/07/25 03:51
BUN 15 mg/dl (9-20) 09/07/25 03:51
Creatinine 1.1 mg/dL (0.7-1.3) 09/07/25 03:51
Glucose 107 mg/dl (70-99) H 09/07/25 03:51
Troponins
09/04/25 09/04/25 09/04/25
15: 19:10 19:30
Troponin I 0.141 H* 0.849 H* D Cancelled
09/05/25 09/05/25 09/05/25
01:24 06:34 14:30
Troponin I 4.860 H* D 11.800 H* D Cancelled
09/05/25 09/06/25 09/06/25
18:33 01:33 08:03
Troponin I 27.700 H* 43.400 H* D 51.600 H*
09/06/25 09/06/25
14:51 21:10
Troponin I 43.300 H* 35.400 H*
Vital Signs and I&O:
Vital Signs
Temp Pulse Resp BP Pulse Ox
98.4 F 101 22 140/76 92
09/07/25 11:18 09/07/25 14:00 09/07/25 14:00 09/07/25 14:00 09/07/25 14:00
Vital Signs
Temp Pulse Resp BP Pulse Ox
98.4 F 101 22 140/76 92
09/07/25 11:18 09/07/25 14:00 09/07/25 14:00 09/07/25 14:00 09/07/25 14:00
Intake & Output
09/05/25 09/06/25 09/07/25 09/08/25
06:59 06:59 06:59 06:59
Intake Total 3329.0 / 3454.0 4442 / 4554 2021 480 / 480
Output Total 2282.0 / 2282.0 1230 / 1230 1470 / 1470 1030 / 1030
Balance 1047.0 / 1172.0 3212 / 3324 552 / 552 -550 / -550
Physical Exam
Physical Exam
GEN: No distress, awake, Ox3
HEENT: supple, anicteric, mmm
LUNGS: CTA, no wheezes/rales
CV: Reg, S1/S2, 1/6 syst LSB, no gallop
ABD: Soft, mildly distended. Mild tenderness near MT drain but otherwise nontender.Positive bowel sounds Positive vinita. Positive MT drain with bloody fluid
EXT: No edema
NEURO: Gross non-focal
: mixon cath- clear
--- NOTE | 2025-09-07 19:42 | PTCARENOTE ---
Assumed care of Pt from day RN. Pt off hepatin gtt and IVF. Pt AAox3 able to make needs known. Pt getting up oob and walking in [place] with stand by assist. Call bel within reach. Bed in lowest position.
[2025-09-07] MEDS: CRESTOR 20 MG PO (21:09)
[2025-09-07] MEDS: ZOFRAN 4 MG IV (22:52)
--- NOTE | 2025-09-07 23:58 | PTCARENOTE ---
Pt having periods of nausea, prn medication given with minimal relief. Pt believes the nausea is due to drinking prune juice. Pt stating ' now i remember prune juice did this too me years ago'. Pt darlin having bloody output serosanguineous around drain
site.
[2025-09-08] VITALS (17 sets, daily range): BP systolic 98–176; BP diastolic 72–99; BMI 34.5
[2025-09-08] MEDS: MYLICON 80 MG PO (00:19)
[2025-09-08] MEDS: ULTRAM 50 MG PO (00:19)
[2025-09-08 00:20] LABS: Glucose - Point of Care 156 mg/dl (70-99)
[2025-09-08] MEDS: APRESOLINE 5 MG IV (04:01)
[2025-09-08 05:50] LABS: Hematocrit 34.4 % (39.0-52.0); Hemoglobin 11.5 g/dL (13.0-18.0); Mean Corp Hgb Conc. 33.4 g/dL (33.0-37.0); Mean Corpuscular Volume 92.5 fL (80.0-94.0); Nucleated Red Blood Cells % 0 % (-); Platelet Count 235 10^3/uL (130-400); Red Cell Dist. Width 14.4 % (11.5-14.5)
--- NOTE | 2025-09-08 05:52 | PTCARENOTE ---
Pt abd MT site continues to have large amount of serosanguineous fluid output on dressings, MT having bloody output clot noted in bulb. Pt continuing to have abd discomfort suspected gas pains. Enema offered and Pt agreeable. Tap water enema given
with success of some gas relief. Pt continuing to have high BP's sys the 170's dys 90's. Night GAS PLANT REPAIRER made aware. Hydralazine ordered. Pt continues to be diaphoretic sob and having hiccups. EKG and labs drawn, GAS PLANT REPAIRER aware. Pt denies any chest discomfort at
this time.
[2025-09-08 06:02] LABS: Blood Urea Nitrogen 17 mg/dl (9-20); Calcium 8.9 mg/dl (8.4-10.2); Carbon Dioxide 27 mmol/L (22-30); Chloride 100 mmol/L (98-107); Estimated Creatinine Clearance 80 ml/min; Glucose 171 mg/dl (70-99); HDL Cholesterol 51 mg/dl; LDL Cholesterol, Calculated 59 mg/dl; Magnesium 2.1 mg/dl (1.6-2.3); Potassium 4.0 mmol/L (3.5-5.1); Sodium 136 mmol/L (135-145); Very Low Density Lipoprotein 19 mg/dl (0-30); eGFR > 60.00
--- NOTE | 2025-09-08 06:34 | W.PN.UPDATE ---
Update Note
Progress Note Update
0030 RN reports pt with distended,firm abd and intractable hiccoughs that cause some SOB. Pt also diaphoretic. BG normal. PT had enema earlier in day with no results. Likely worsening ileus. Pt agreeable to taking tap water enema.
RN administered enema and pt was able to expel lots of gas. He states he felt better after. BP trending up to 173/98. Due to mobitz 1 with toprol will give dose of hypdralazine.
0415 PT with hiccoughs again and diaphoresis. HR a bit more tachy than before HR [id number]. With some SOB again. Am labs drawn. EKG done.
PT abd still distended and tympanic even though RN and pt state less than before enema. Pt with noted intractable hiccoughs and sweating.
Approx 6am pt vomited large amount of the prune juice he drank last evening. He states he remembered he didn't tolerate that before. [place] better after vomiting.
TT sent to urology Dr Best- discussed events. Asked to order abd xray. If vomits again will need NGT.
WBC bumped to 13.6
BNP 4300 --does not appear overloaded. The SB seems more from distended abd.
--- NOTE | 2025-09-08 06:38 | VATNOTE ---
failed attmepts x3 to estasblish additional iv access. did obtain ordered am labs. pcn aware of intervention.
--- NOTE | 2025-09-08 07:49 | W.PN.HOSP.TC ---
Today's Communication/Plan
-
Transition of rectal aspirin
IV heparin drip discontinued yesterday
N.p.o. with NGT to low wall suction
Plan for left heart cath
Trend CBC
Assessment / Plan
Assessment / Plan
#Acute coronary syndrome
#Dyslipidemia
- Likely perioperative event within RCA distribution; cannot rule out type II event with likely underlying CAD
- LORENZO in inferior leads with reciprocal change anteriorly; troponin peaked at 51, no anginal equivalents
- Reportedly lost 2 L of blood during surgical procedure, likely contributed to development
- Currently on high intensity statin, aspirin, IV heparin drip and beta-laquita
- Was on beta-laquita though discontinued due to Mobitz 1 heart block
- TTE x 2 with normal LVEF, no wall motion abnormality reported
Plan
- Will continue aspirin as MI 300 mg, resume statin when tolerating p.o.
- Hold beta-laquita for now with Mobitz 1 AVB
- Continue to monitor on telemetry
- Plan for left heart cath per cardiology
- Lasix per cardiology; I/Os and weights
#Postoperative ileus
- Initial ileus immediately after procedure though had signs of restored bowel function and tolerated diet
- Overnight 09/07 and 09/08 had worsening pain with 1 episode of nausea/vomiting
- Remains without bowel movement here, no longer passing flatus; AXR with signs of ileus today
- Surgery consulted, NGT ordered and placed this morning, maintain to LIWS for now
- Avoid opiates and anticholinergics
- Monitor serial abdomen exams
#Mobitz type I AVB
- Yesterday evening had telemetry consistent with Mobitz 1 AVB
- Metoprolol XL was held at that time, remains on telemetry
- Continue to monitor telemetry
- No indication for PPM
#Postoperative acute blood loss anemia
- Reportedly with 2 L blood loss in the OR; s/p 4 unit PRBC here
- Hemoglobin continues to drop while on IV heparin postoperatively
- Most recent hemoglobin 11.4 following fourth unit of blood
- Will continue to trend CBC and transfuse for hemoglobin goal near 10 with ACS
#Circulatory shock
- Suspect hemorrhagic etiology with operative blood loss as above
- Was on Levophed briefly though was weaned off with fluids and blood transfusions
- Continue to monitor with MAP goal >65
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
- Tramadol as needed
#Primary hypertension
- Home regimen includes telmisartan 40 mg nightly
- No known history of hypertensive systemic disease
- ARB currently held perioperatively, can likely resume within next 24 to 48 hours
Diet: Regular
DVT: SCDs
CODE STATUS: Full
Dispo: PT consulted, encourage OOB as tolerated
Discussed with cardiology and surgery
Anticipated Discharge: > 48 hours
Subjective/Interval History
-
Date of Service: September 08, 2025
Seen and examined at the bedside. Overnight had worsening 1 episode of nausea vomiting. AFVSS this morning. States he has had minimal flatus and still no bowel movement.
WBC up to 13.6, x-ray with signs of ileus. NGT placed this morning of surgery consulted.
Denies other complaints such as chest pain, dyspnea, fevers or chills, urinary issues.
Objective Data
-
Labs:
Laboratory Results
09/08/25 09/08/25
00:30 05:21
WBC 13.6 H
Hgb 11.5 L D
Hct 34.4 L
Plt Count 235 D
APTT Cancelled
Sodium 136
Potassium 4.0
Chloride 100
Carbon Dioxide 27
BUN 17
Creatinine 0.9
Glucose 171 H
Calcium 8.9
Vital Signs:
Vital Signs
Temp Pulse Resp BP Pulse Ox
97.7 F 103 31 140/92 98
09/08/25 07:26 11/16/25 06:32 09/08/25 06:32 09/08/25 06:32 09/08/25 06:32
I&O
09/07/25 09/08/25 09/09/25
06:59 06:59 06:59
Intake Total 2021 2640 / 2640
Output Total 1470 / 1470 3020 / 3020
Balance 552 / 552 -380 / -380
Review of Systems
-
History Source: Patient
All other systems: Reviewed and negative
Physical Exam
-
General: Well Developed, No Apparent Distress and Obese
HEENT: Normocephalic, Atraumatic, Moist Mucous Membranes and Anicteric
Respiratory: Clear to Auscultation and Non Labored Respirations; Negative Accessory Resp Muscle Use
Cardiac: Regular Rhythm and S1/S2; Negative Murmur, Rub or Gallop
GI: Nontender, Distended and Other (Firm, absent bowel sounds, tympanic)
Musculoskeletal: No Clubbing, No Cyanosis and No Edema
Skin: Warm and Dry; Negative Rash
Neuro: AO x 3, Nonfocal/Grossly Intact and Central Nerve's Intact
Psych: Calm
[2025-09-08] MEDS: ZOFRAN 4 MG IV (07:58)
--- NOTE | 2025-09-08 09:05 | W.PN.URO.CBU ---
Today's Communication / Plan
-
Place NGT. NPO/IVF
F/u MT Creatinine
Monitor abd exam
Assessment / Plan
-
80M POD#4 s/p robotic left nephroureterctomy, KANNAN. Post-operative acute blood loss anemia requiring blood transfusion and ACS requiring hep gtt > now discontinued.
Now with likely ongoing ileus, vomiting and abdominal distension.
Abd XR reviewed - stomach appears dilated and fluid-filled.
- NGT
- NPO, replacement IVF
- Trend H/H (Hgb stabilized)
- Hep gtt discontinued yesterday per cardiology, appreciate recs regarding AC
- Continue mixon and MT drain
- F/u MT Creatinine
- Ambulate / OOB
- Incentive spirometry - wean O2
Diagnosis
-
Date of Service: September 08, 2025
-
Patient Diagnosis:
Post Op Day:
Patient Diagnosis:
Post Op Day:
Patient Diagnosis:
Post Op Day:
Patient Diagnosis:
Left Renal Urothelial Carcinoma
Intraperitoneal and Retroperitoneal Adhesions, extenive
Blood-loss anemia
s/p Robotic Left Radical Nephroureterectomy and lysis of Adhesions
Post Op Day: 2
Subjective
-
Overnight events reviewed - worsening abdominal distension, new hiccups, diaphoresis and shortness of breath
Vitals stable overnight except for HR increase to low 100s, BP stable, no fevers
Received tap water enema overnight with release of gas > pt felt better after this
Vomited prune juice early this morning
Pt feels better after vomiting, reporting discomfort with distension
Denies nausea, SOB. Endorses poor appetite and cold sweats overnight
Objective
-
Vital Signs
Temp Pulse Resp BP Pulse Ox
97.7 F 103 31 140/92 98
11/16/25 07:26 09/08/25 06:32 09/08/25 06:32 09/08/25 06:32 09/08/25 06:32
Intake and Output
09/07/25 09/08/25 09/09/25
06:59 06:59 06:59
Intake Total 2021 2640 / 2640
Output Total 1470 / 1470 3020 / 3020 110 / 110
Balance 552 / 552 -380 / -380 -110 / -110
Intake:
Oral fluids 240 / 240 1440 / 1440
IV fluids (Total) 1048 / 1048 1200 / 1200
Heparin 48 / 48
Lr 1,000 ml @ 125 mls/hr IV . 300 / 300
Q8H NORMA Rx#:[id number]
IV piggybacks 84 / 84
Blood Products 150 / 150
Packed red blood cells 150 / 150
Blood Product Amount Infused ( 500 / 500
mL)
Packed Rbc Leukoreduced Unit 250 / 250
[id number]
Packed Rbc Leukoreduced Unit 250 / 250
[id number]
Output:
Drain Output (Total) 170 / 170 270 / 270 110 / 110
Lower Abdomen Fausto-Martines 170 / 170 270 / 270 110 / 110
Urine, Mixon 1300 / 1300 2750 / 2750
Other:
Number of immeasurable emeses? 1
Laboratory Results
09/08/25 05:21
09/08/25 05:21
Physical Exam
-
General - well developed, well nourished, no acute distress, slightly diaphoretic
Chest - clear bilaterally
Abdomen - soft, significantly distended, tympanic throughout, non-peritonitic, vinita/incisions intact, no flank or groin hematoma/ecchymosis, LLQ MT now more serosang
Genitalia - mixon yellow
Skin - warm
Neuro - AOx3
Extremities - no edema
Incision - clean, dry
Dressing - clean, dry, intact
[2025-09-08] MEDS: LOW STRENGTH ASPIRIN PO (09:26)
[2025-09-08] MEDS: METAMUCIL, KONSYL PO (09:26)
[2025-09-08] MEDS: COLACE PO (09:26)
--- NOTE | 2025-09-08 10:42 | CON.GS ---
Addendum entered and electronically signed by Luis Christopher MD 09/08/25 11:07:
Patient seen and examined.
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
converted to open laparotomy for lysis given extent of adhesions from prior surgery.
His course of stay has been complicated by an STEMI and he is being following by Cardiology with plans for eventual cardiac cath. Worsening distention with nausea and vomiting with attempt at dietary advancements. XR imaging consistent with ileus,
NGT now in place for management. Mild leukocytosis likely secondary to ileus. Acute blood loss anemia now s/p pRBC's x4. H/H stable this AM s/p transfusion on 09/07. AFVSS.
Gen: NAD
HEENT: dark bilious output
Abd: soft, mild tenderness, distended, tympanitic, non-peritoneal
No plans or indication for surgical intervention at this time. Recommend medical management for postoperative ileus with NGT decompression and bowel rest.
Plan:
-- NPO, IVF, NGT decompression
-- Correct lytes, minimize narcotics
-- No plans for surgery at this time
Original Note:
Consultation
-
Date/Time Consultation Performed: 09/08/25 0966
Medical History
-
Chief Complaint: nausea
History of Present Illness:
80 yo male with a h/o perforated diverticulitis s/p ex lap for sigmoid resection/Nicholas's with subsequent colostomy reversal in 2019, opioid induced constipation and a recent history of urothelial cancer now POD #4 robotic left nephroureterectomy
which was converted to open laparotomy for lysis given extent of adhesions from prior surgery. His course of stay has been complicated by an STEMI and he is being following by cardiology with plans for eventual cardiac cath. He is seen in evaluation
today for worsening abdominal distention after dietary advancement with nausea and episode of emesis last night. He notes that he was not previously passing flatus but after receiving an enema last night he was able to pass a good amount of flatus
although no BM. Prior to exam, an NGT was placed with high outputs of bilious drainage noted. He reports relief with this.
Past Medical History
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
Past Surgical History: Bowel Resection (ex lap for sigmoid resection/Nicholas's with subsequent colostomy reversal 2018), Orthopedic (left TSA 2021) and Urological (09/04/25 robotic left nephroureterectomy converted to open given extent of adhesions)
Social History
Tobacco: Former Smoker
Alcohol: None
Living: With Family
Family History
Family History: Reviewed & Not Pertinent
Allergies / Home Medications
Allergy/AdvReac Type Severity Reaction Status Date / Time
Penicillins Allergy Possible Verified 09/04/25 14:43
rash 'a
long time
ago'
Opioids - Morphine Analogues AdvReac 'bowels Verified 09/04/25 14:43
shut down'
�Medication �Instructions �Recorded �Confirmed �Type
rosuvastatin 20 mg tablet 20 mg PO HS High Cholesterol 07/25/25 09/04/25 History
olmesartan 40 mg tablet (Benicar) 40 mg PO HS Blood Pressure 08/28/25 09/04/25 History
tramadol 50 mg tablet 50 mg PO TID PRN severe pain #10 09/04/25 Rx
tabs
Review of Systems
-
History Source: Patient
All other systems: Negative unless noted
A 10 point review of systems was completed, and was negative except as per HPI.
Physical Exam
Vital Signs
Temp Pulse Resp BP Pulse Ox
97.7 F 103 31 140/92 98
09/08/25 07:26 09/08/25 06:32 09/08/25 06:32 09/08/25 06:32 09/08/25 06:32
09/07/25 09/08/25 09/09/25
06:59 06:59 06:59
Actual Weight 109 kg 108.947 kg
Body Mass Index (BMI) 34.5
Lab Results
09/08/25 05:21
09/08/25 05:21
WBC 13.6 10^3/uL (4.8-10.8) H 09/08/25 05:21
Hgb 11.5 g/dL (13.0-18.0) L D 09/08/25 05:21
Hct 34.4 % (39.0-52.0) L 09/08/25 05:21
Plt Count 235 10^3/uL (130-400) D 09/08/25 05:21
Abs Immat Gran (auto) 0.1 10^3/uL (0-0.05) H 09/08/25 05:21
Neutrophils % 89.8 % (42.2-75.2) H 09/08/25 05:21
Physical Exam
General: Well Developed
HEENT: Normocephalic and Moist Mucous Membranes
GI: Soft, Tender (mild incisional), Distended and Other (NGT with dark bilious outputs)
Skin: Other (midline incision with intact vinita, robotic port sites with vinita, MT with SSF. No erythema or oozing from incisions)
Neuro: Awake, Alert and AO x 3
Psych: Calm
Data Reviewed
-
Radiology: Image Personally Visualized and interpreted, Report Reviewed by me, Discussed with Patient and Discussed with Family
Labs: Labs Reviewed by me, Discussed with Physician and Discussed with Patient
Old Records: Reviewed
Assessment / Plan
-
80 yo male with a h/o perforated diverticulitis s/p ex lap for sigmoid resection/Nicholas's with subsequent colostomy reversal in 2019 and a recent history of urothelial cancer now POD #4 robotic left nephroureterectomy which was converted to open
laparotomy for lysis given extent of adhesions from prior surgery. His course of stay has been complicated by an STEMI and he is being following by cardiology with plans for eventual cardiac cath. Worsening distention with n/v with attempt at
dietary advancements. XR imaging consistent with ileus, NGT now in place for management. Mild leukocytosis likely secondary to ileus. Acute blood loss anemia now s/p pRBC's x4. H/H stable this am s/p transfusion on 09/07. AFVSS.
Plan:
Continue NPO with NGT for decompression
Hold bowel regimen
Follow for bowel recovery
--- NOTE | 2025-09-08 10:46 | PTCARENOTE ---
Placed NG tube in R nare per order. NG tube at 60 cm. Tolerated well. Large amount of initial dark brown/black output from tube. Low intermittent suction.
[2025-09-08] MEDS: NSS (PRESERVATIVE FREE) 10 ML IV (11:00)
[2025-09-08] MEDS: PROTONIX IV 40 MG IV (11:00)
[2025-09-08] MEDS: LASIX 20 MG IV (11:00)
[2025-09-08] MEDS: NITRO-BID 0.5 INCH TOPICAL (11:01)
--- NOTE | 2025-09-08 11:42 | PTCARENOTE ---
Patient c/o headache to Dr. Conway during her rounds. Verbal orders to d/c nitro paste and to order IV lopressor 2.5 mg Q6 hours due to patient being tachycardic with HR in the low 100's. BP stable. Nitro paste removed. Care ongoing.
[2025-09-08] MEDS: LOPRESSOR 2.5 MG IV ×2 (12:02→17:30)
--- NOTE | 2025-09-08 13:05 | W.PN.CARDCBS ---
Today's Communication / Plan
-
IV Lopressor
Close monitoring of hemodynamic support with worsening ileus
Impression / Plan
-
PCP: Dr. Acevedo
Cardiology: Saw Dr. Fontana 2021
Impression:
Admitted following planned left nephrectomy
Post op Inferior STEMI 09/04/25
s/p robotic left nephrectomy 09/04/2025
Postoperative hypotension and blood loss
Left renal pelvic urothelial carcinoma
HTN
Hyperlipidemia
Prediabetes, HgbA1c 6.3% 08/19/2025
Echo 09/04/2025: LVEF 55% and very technically limited study
Plan:
Medically complex 80-year-old gentleman admitted with hematuria found to have left Renal Urothelial Carcinoma s/p Robotic Left Radical Nephroureterectomy and lysis of Adhesions
-Postoperative course has been complicated by hypotension and blood loss Status post 4 units packed red blood cells
-Postoperative course also complicated by myocardial infarct, Peak troponin 51
-Postop ileus with abdominal x-ray 09/05/2025 showing probable diffuse enterocolitis/ileus and constipationWhich had been improving however worsened overnight, now n.p.o. with NG tube
-Patient has MT drain with bloody drainage.
-Mixon catheter with clear urine
- Urology following and now general surgery has been consulted.
-Per general surgery, no immediate plans for surgery. N.p.o. and continue NG tube
Postoperative inferior STEMI , Peak troponin 51.6
- Patient is hemodynamically stable and denies chest pain at rest or with unit ambulation yesterday
- No symptoms of heart failure.
- Asymptomatic Wenckebach noted on school lunch monitor. No A-fib or VT
- Repeat limited 2D echocardiogram with echo contrast noting preserved LV systolic function with no obvious regional wall motion abnormality however study is technically difficult despite IV echo contrast.
- Continue aspirin, now rectal
- Initially placed on Nitropaste however patient complaining of headache. Will stop Nitropaste and start IV Lopressor with hold parameters
- Continue rosuvastatin 20 mg daily, held NPO
- For now we will continue plan for medical therapy with eventual plan for left heart catheterization, Timing to be determined.
- Would consider adding Plavix prior to discharge once hemoglobin remained stable and bleeding postop subside
-Discussed with patient and family at bedside. Case was previously discussed with interventional cardiology
Prediabetes with hemoglobin A1c 6.3%
- Defer to medicine management. Could consider SGLT2 inhibitor once he is further recovered
Progress Note - Egyptologist
Subjective
Date of Service: September 08, 2025
Patient seen and examined. Overnight events reviewed with patient/family and nursing staff. Currently n.p.o. with NG tube. Denies any pain. Denies chest pain
Objective
Labs:
09/08/25 05:21
09/08/25 05:21
Labs
Hgb 11.5 g/dL (13.0-18.0) L D 09/08/25 05:21
Hct 34.4 % (39.0-52.0) L 09/08/25 05:21
Plt Count 235 10^3/uL (130-400) D 09/08/25 05:21
PT 14.0 Sec (11.4-14.6) 09/04/25 15:28
INR 1.03 09/04/25 15:28
APTT Cancelled 09/08/25 00:30
Sodium 136 mmol/L (135-145) 09/08/25 05:21
Potassium 4.0 mmol/L (3.5-5.1) 09/08/25 05:21
BUN 17 mg/dl (9-20) 09/08/25 05:21
Creatinine 0.9 mg/dL (0.7-1.3) 09/08/25 05:21
Glucose 171 mg/dl (70-99) H 09/08/25 05:21
Troponins
09/05/25 09/06/25 09/06/25
18:33 01:33 08:03
Troponin I 27.700 H* 43.400 H* D 51.600 H*
09/06/25 09/06/25 09/08/25
14:51 21:10 05:21
Troponin I 43.300 H* 35.400 H* 9.710 H*
09/08/25
05:21
Troponin I Cancelled
Vital Signs and I&O:
Vital Signs
Temp Pulse Resp BP Pulse Ox
98 F 101 23 115/72 92
09/08/25 11:48 09/08/25 12:02 09/08/25 10:28 09/08/25 12:02 09/08/25 10:28
Vital Signs
Temp Pulse Resp BP Pulse Ox
98 F 101 23 115/72 92
09/08/25 11:48 09/08/25 12:02 09/08/25 10:28 09/08/25 12:02 09/08/25 10:28
Intake & Output
09/06/25 09/07/25 09/08/25 09/09/25
06:59 06:59 06:59 06:59
Intake Total 4442 / 4554 2021 2640 / 2640
Output Total 1230 / 1230 1470 / 1470 3020 / 3020 3210 / 3210
Balance 3212 / 3324 552 / 552 -380 / -380 -3210 / -3210
Physical Exam
Physical Exam
GEN: Mild distress with NG tube to suction. Awake alert and oriented x 3
HEENT: Mucous membranes mildly dry
LUNGS: CTA, no wheezes/rales, Decreased at bases
CV: Reg, S1/S2, 1/6 syst LSB, no gallop
ABD: Soft, mildly distended. Mild tenderness near MT drain but otherwise nontender.Positive bowel sounds Positive vinita. Positive MT drain with bloody fluid
EXT: No edema
NEURO: Gross non-focal
: mixon cath- clear
--- NOTE | 2025-09-08 15:26 | PTCARENOTE ---
Patient AOx3. On RA with SpO2 greater than 92%. NSR-sinus tach on the monitor. BP stable. Lopez draining rosa urine urine. NG in R nare draining large amount of dark brown/black drainage to low intermittent suction at 60 cm. L sided MT drain
draining sanguinous drainage. Midline incision CHARCOAL BURNER BEEHIVE KILN with vinita intact. Standby assist when OOB. Patient walked multiple laps around unit during shift. NPO. Call scott within reach, bed in lowest position, and bed of wheels locked.
[2025-09-08] MEDS: CRESTOR PO (21:39)
[2025-09-09] VITALS (22 sets, daily range): BP systolic 83–138; BP diastolic 52–83; BMI 31.6
[2025-09-09] MEDS: LOPRESSOR IV ×2 (00:57→12:49)
--- NOTE | 2025-09-09 01:27 | PTCARENOTE ---
Assumed care of Pt from day RN. Pt stating he is ' feeling much better now, after tube'. Pt NGT to LIS marking 60, output light brown. Pt has no complaints at this time. Assessment care and vitals as charted. Call scott within reach bed in lowest
position.
[2025-09-09 05:00] LABS: Hematocrit 30.3 % (39.0-52.0); Hemoglobin 10.1 g/dL (13.0-18.0); Mean Corp Hgb Conc. 33.3 g/dL (33.0-37.0); Mean Corpuscular Volume 88.9 fL (80.0-94.0); Nucleated Red Blood Cells % 0 % (-); Platelet Count 254 10^3/uL (130-400); Red Cell Dist. Width 14.5 % (11.5-14.5)
[2025-09-09 05:23] LABS: ALT (SGPT) 26 U/L (0-50); AST (SGOT) 44 U/L (17-59); Albumin 3.0 g/dl (3.5-5.0); Alkaline Phosphatase 52 U/L (38-126); Blood Urea Nitrogen 23 mg/dl (9-20); Calcium 8.7 mg/dl (8.4-10.2); Carbon Dioxide 31 mmol/L (22-30); Chloride 101 mmol/L (98-107); Estimated Creatinine Clearance 62 ml/min; Glucose 122 mg/dl (70-99); Magnesium 2.1 mg/dl (1.6-2.3); Potassium 3.7 mmol/L (3.5-5.1); Sodium 135 mmol/L (135-145); Total Protein 5.3 g/dl (6.3-8.2); eGFR > 60.00
[2025-09-09] MEDS: LOPRESSOR 2.5 MG IV ×2 (05:30→18:14)
--- NOTE | 2025-09-09 05:42 | PTCARENOTE ---
Pt MT site saturated with serosanguineous fluid dressing changed. Pt appearing to be tolerating NGT well through out the night.
[2025-09-09] MEDS: NSS (PRESERVATIVE FREE) 10 ML IV (08:55)
[2025-09-09] MEDS: ASPIRIN 300 MG RECTAL (08:55)
[2025-09-09] MEDS: PROTONIX IV 40 MG IV (08:55)
--- NOTE | 2025-09-09 09:13 | PTCARENOTE ---
Patient received from power and recovery shift engineer. Patient AAO, VSS. No complaints of pain. No events noted overnight. Left sided MT drain remains, dressing CDI. Surgical sites approximated and vinita intact. Lopez remains in place, urology determination.
NG tube placed over the weekend to low intermittent suction, brown output. No testing scheduled at this time. Call scott in reach.
--- NOTE | 2025-09-09 09:43 | W.PN.CARDCBS ---
Today's Communication / Plan
-
Continue postop care of ileus as per surgery
Remains hemodynamically stable with preserved EF
Remains euvolemic
EF is preserved on technically limited echoes from Sep 04 and Sep 06.
Eventual plan for ischemic eval with left heart cath inpt vs outpt pending clinical course.
Prior Wenckebach on monitor, no significant heart block or arrhythmia
Cont rectal ASA
Continue IV Lopressor.
Resume rosuvastatin 20 mg daily once taking p.o.'s.
No ACEI/ARB with recent nephrectomy
Impression / Plan
-
.
PCP: Dr. Acevedo
Cardiology: Saw Dr. Fontana 2021
Impression:
Admitted following planned left nephrectomy
Post op Inferior STEMI 09/04/25
s/p robotic left nephrectomy 09/04/2025
Postoperative hypotension and blood loss
Left renal pelvic urothelial carcinoma
Post op ileus
HTN
Hyperlipidemia
Prediabetes, HgbA1c 6.3% 08/19/2025
Echo 09/04/2025: LVEF 55% and very technically limited study
Echo 09/06/2025: TDS despite use of IV echo contrast, preserved LV function with EF 60 to 65% very mild aortic stenosis with peak/mean gradients of 20/11 mmHg respectively, no AR.
technically limited study with poor endomyocardial definition despite the use of IV echo contrast.
Plan:
Medically complex 80-year-old gentleman admitted with hematuria found to have left Renal Urothelial Carcinoma s/p Robotic Left Radical Nephroureterectomy and lysis of Adhesions
-Postoperative course has been complicated by hypotension and blood loss Status post 4 units packed red blood cells
-Postoperative course also complicated by myocardial infarct, Peak troponin 51
-Patient with MT drain
-Postop ileus with abdominal x-ray 09/05/2025 showing probable diffuse enterocolitis/ileus and constipation which had been improving however worsened.
Regarding ileus, surgery following and he remains NPO with NGT
Cont post op care as per urology
Cont medical therapy for now for post op inferior STEMI with peak trop 51.
Remains hemodynamically stable with preserved EF
Remains euvolemic
EF is preserved on technically limited echoes from Sep 04 and Sep 06.
Eventual plan for ischemic eval with left heart cath inpt vs outpt pending clinical course.
Prior Wenckebach on monitor, no significant heart block or arrhythmia
Cont rectal ASA
Continue IV Lopressor.
Resume rosuvastatin 20 mg daily once taking p.o.'s.
No ACEI/ARB with recent nephrectomy
Prediabetes with hemoglobin A1c 6.3%
Defer to medicine management.
Discussed with at bedside
Progress Note - Scallop Binder
Subjective
Date of Service: September 09, 2025
Patient seen and examined. No shortness of breath. No chest pain
Objective
Labs:
09/09/25 04:45
09/09/25 04:45
Labs
Hgb 10.1 g/dL (13.0-18.0) L 09/09/25 04:45
Hct 30.3 % (39.0-52.0) L 09/09/25 04:45
Plt Count 254 10^3/uL (130-400) 09/09/25 04:45
PT 14.0 Sec (11.4-14.6) 09/04/25 15:28
INR 1.03 09/04/25 15:28
APTT Cancelled 09/08/25 00:30
Sodium 135 mmol/L (135-145) 09/09/25 04:45
Potassium 3.7 mmol/L (3.5-5.1) 09/09/25 04:45
BUN 23 mg/dl (9-20) H 09/09/25 04:45
Creatinine 1.1 mg/dL (0.7-1.3) 09/09/25 04:45
Glucose 122 mg/dl (70-99) H 09/09/25 04:45
Troponins
09/06/25 09/06/25 09/08/25
14:51 21:10 05:21
Troponin I 43.300 H* 35.400 H* 9.710 H*
09/08/25
05:21
Troponin I Cancelled
Vital Signs and I&O:
Vital Signs
Temp Pulse Resp BP Pulse Ox
98.4 F 78 17 131/83 95
09/09/25 07:21 09/09/25 06:00 09/09/25 06:00 09/09/25 06:00 09/09/25 09:41
Vital Signs
Temp Pulse Resp BP Pulse Ox
98.4 F 78 17 131/83 95
09/09/25 07:21 09/09/25 06:00 09/09/25 06:00 09/09/25 06:00 09/09/25 09:41
Intake & Output
09/07/25 09/08/25 09/09/25 09/10/25
06:59 06:59 06:59 06:59
Intake Total 2021 2640 / 2640 60 / 60
Output Total 1470 / 1470 3020 / 3020 4790 / 4790
Balance 552 / 552 -380 / -380 -4730 / -4730
Physical Exam
Physical Exam
General: No acute distress, AAOX3
HEENT: NG tube in place
Neck: Negative JVD
Heart: Regular, Negative S3 positive S1/S2, Negative S4, No murmur
Lungs: CTA b/l, negative wheezes/rales/rhonchi
Abd: Positive BS, NT/ND, neg rebound/rigidity/guarding
Ext: Negative cyanosis/clubbing/edema
Neuro: nonfocal
--- NOTE | 2025-09-09 10:58 | W.PN.GS2 ---
Today's Communication / Plan
-
c/w NGT
Assessment / Plan
-
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
converted to open laparotomy for lysis given extent of adhesions from prior surgery.
His course of stay has been complicated by an STEMI and he is being following by Cardiology with plans for eventual cardiac cath. Worsening distention with nausea and vomiting with attempt at dietary advancements. XR imaging consistent with ileus.
NGT now in place with 3.2L out over the last 24hours, continues to pass very minimal flatus
Mild leukocytosis improving, likely secondary to ileus.
Acute blood loss anemia now s/p pRBC's x4. H/H drifting down this am. Management as per primary surgical team
No plans or indication for surgical intervention at this time. Recommend medical management for postoperative ileus with NGT decompression and bowel rest.
Plan:
-- NPO, IVF, NGT decompression
-- All other management as per primary team
Subjective Data
-
Date of Service: September 09, 2025
Pt seen and examined at bedside. Continues to pass small amounts of flatus. Denies nausea. Feels much better since NGT placed. No Bm as of yet.
Objective Data
-
Intake and Output
09/08/25 09/09/25 09/10/25
06:59 06:59 06:59
Intake Total 2640 / 2640 60 / 60
Output Total 3020 / 3020 4790 / 4790
Balance -380 / -380 -4730 / -4730
Intake:
Oral fluids 1440 / 1440 60 / 60
IV fluids (Total) 1200 / 1200
Output:
Drain Output (Total) 270 / 270 140 / 140
Lower Abdomen Fausto-Martines 270 / 270 140 / 140
Gastrointestinal tube output ( 3250 / 3250
Total)
[place] Sump 3250 / 3250
Urine, Mixon 2750 / 2750 1400 / 1400
Other:
Number of immeasurable emeses? 1
Vital Signs
Temp Pulse Resp BP Pulse Ox
98.4 F 78 17 131/83 95
09/09/25 07:21 09/09/25 06:00 09/09/25 06:00 09/09/25 06:00 09/09/25 09:41
Lab Results
09/09/25 04:45
09/09/25 04:45
Calcium 8.7 mg/dl (8.4-10.2) 09/09/25 04:45
Phosphorus 4.0 mg/dl (2.5-4.5) 09/09/25 04:45
Magnesium 2.1 mg/dl (1.6-2.3) 09/09/25 04:45
Total Bilirubin 0.7 mg/dl (0.2-1.3) 09/09/25 04:45
Direct Bilirubin 0.0 mg/dl (0.0-0.4) 09/06/25 01:33
AST 44 U/L (17-59) 09/09/25 04:45
ALT 26 U/L (0-50) 09/09/25 04:45
Alkaline Phosphatase 52 U/L (38-126) 09/09/25 04:45
Total Protein 5.3 g/dl (6.3-8.2) L 09/09/25 04:45
Albumin 3.0 g/dl (3.5-5.0) L 09/09/25 04:45
Physical Exam
-
NAD
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
Midline incision with intact [place], MT with SSF
Patient has a mixon catheter: Yes
[2025-09-09] MEDS: NSS 500 IV (12:50)
--- NOTE | 2025-09-09 12:50 | W.PN.HOSP.TC ---
Today's Communication/Plan
-
hypotensive-IVF bolus
Start maintenance IV fluid post bolus
Continue with NG tube and monitor output
Trend hemoglobin
Status post heparin drip
Assessment / Plan
Assessment / Plan
General: Well Developed, No Apparent Distress and Obese
HEENT: Normocephalic, Atraumatic, Moist Mucous Membranes and Anicteric
Respiratory: Clear to Auscultation and Non Labored Respirations; Negative Accessory Resp Muscle Use
Cardiac: Regular Rhythm and S1/S2; Negative Murmur, Rub or Gallop
GI: Nontender, Distended and Other (Firm, + bowel sounds) +NGT with dark biliary drainage noted
: +Lopez, +MT drain
Musculoskeletal: No Clubbing, No Cyanosis and No Edema
Skin: Warm and Dry; Negative Rash
Neuro: AO x 3, Nonfocal/Grossly Intact and Central Nerve's Intact
Psych: Calm
#Acute coronary syndrome
#Dyslipidemia
- Likely perioperative event within RCA distribution; cannot rule out type II event with likely underlying CAD
- LORENZO in inferior leads with reciprocal change anteriorly; troponin peaked at 51, no anginal equivalents
- Reportedly lost 2 L of blood during surgical procedure, likely contributed to development
- Continue with aspirin and IV beta-laquita if blood pressure can tolerate. Restart statin once able to take p.o.
- TTE x 2 with normal LVEF, no wall motion abnormality reported
- Hold beta-laquita for now with hypotension
- Continue to monitor on telemetry
- Plan for left heart cath per cardiology
- Lasix per cardiology; I/Os and weights
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
- Initial ileus immediately after procedure though had signs of restored bowel function and tolerated diet
- Overnight 09/07 and 09/08 had worsening pain with 1 episode of nausea/vomiting
- Surgery consulted, NGT placed, maintain to LIWS for now
- Avoid opiates and anticholinergics
- Monitor serial abdomen exams
- surgery following
- urology following-monitor MT drain output
#Mobitz type I AVB
- Continue to monitor telemetry
- No indication for PPM
#Postoperative acute blood loss anemia
- Reportedly with 2 L blood loss in the OR; s/p 4 unit PRBC here
- Hemoglobin continues to drop while on IV heparin postoperatively
- Most recent [id number]
#Circulatory shock
- Suspect hemorrhagic etiology with operative blood loss as above
- Was on Levophed briefly though was weaned off with fluids and blood transfusions
- Continue to monitor with MAP goal >65
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
- Tramadol as needed
#Primary hypertension
- Home regimen includes telmisartan 40 mg nightly
- No known history of hypertensive systemic disease
- ARB currently held perioperatively, can likely resume within next 24 to 48 hours
Diet: Regular
DVT: SCDs/significant blood loss
CODE STATUS: Full
d/w with spouse at bedside.
Anticipated Discharge: > 48 hours
Subjective/Interval History
-
Date of Service: September 09, 2025
Sitting in chair
States passing some flatulence
Patient with increased NG tube output
Objective Data
-
Labs:
Laboratory Results
09/09/25
04:45
WBC 11.7 H
Hgb 10.1 L
Hct 30.3 L
Plt Count 254
Sodium 135
Potassium 3.7
Chloride 101
Carbon Dioxide 31 H
BUN 23 H
Creatinine 1.1
Glucose 122 H
Calcium 8.7
Total Bilirubin 0.7
AST 44
ALT 26
Alkaline Phosphatase 52
Vital Signs:
Vital Signs
Temp Pulse Resp BP Pulse Ox
98.5 F 89 13 102/63 95
09/09/25 11:23 09/09/25 12:24 09/09/25 12:24 09/09/25 12:24 09/09/25 09:41
I&O
09/08/25 09/09/25 09/10/25
06:59 06:59 06:59
Intake Total 2640 / 2640 60 / 60
Output Total 3020 / 3020 4790 / 4790
Balance -380 / -380 -4730 / -4730
Data Reviewed
-
Total Time Spent with Patient (in minutes): 55
[2025-09-09 12:51] LABS: Glucose - Point of Care 114 mg/dl (70-99)
[2025-09-09] MEDS: LR 1000 IV (13:29)
--- NOTE | 2025-09-09 16:06 | CM ---
F/U: Patient has NG tube and hypotensive needing IV Fluids, plus PT/OT has not made recommendations yet. Case Management to Follow. PLAN: TBD, Home VN vs. SNF.
--- NOTE | 2025-09-09 17:24 | PTCARENOTE ---
Earlier in the day, patient with soft BP's in the 90's systolically. Stated feeling 'spacey' and 'fuzzy'. Hospitalist made aware and a 500mL bolus and IVF started. Patients BP most stable but still remains lower than what would be considered
normal range for him.
After 1700, patients BP remains stable. Patient was taken for a walk as he wanted to do so earlier but had symptomatic hypotension.
With the use of a rolling walker for stability, patient walked approx 350ft at a brisk pace. Did state he was feeling a little winded at the end but otherwise did great.
--- NOTE | 2025-09-09 20:56 | W.PN.URO.CBU ---
Today's Communication / Plan
-
Continue NGT/IVF
Supportive care
Appreciate eligibility consultant recs
Ambulation
Consider repeat KUB tomorrow
Assessment / Plan
-
80M POD#5 s/p robotic left nephroureterctomy, KANNAN. Post-operative acute blood loss anemia requiring blood transfusion and ACS requiring hep gtt > now discontinued.
Now with likely ongoing ileus, vomiting and abdominal distension s/p NGT
Plan:
- Continue NGT
- NPO, replacement IVF
- Trend H/H (Hgb stabilized)
- Hep gtt discontinued yesterday per cardiology, appreciate recs regarding AC
- Continue mixon and MT drain
- Ambulate / OOB
- Incentive spirometry
- Consider restarting DVT ppx
Diagnosis
-
Date of Service: September 09, 2025
-
Patient Diagnosis:
Post Op Day:
Patient Diagnosis:
Post Op Day:
Patient Diagnosis:
Post Op Day:
Patient Diagnosis:
Post Op Day:
Patient Diagnosis:
Left Renal Urothelial Carcinoma
Intraperitoneal and Retroperitoneal Adhesions, extenive
Blood-loss anemia
s/p Robotic Left Radical Nephroureterectomy and lysis of Adhesions
Post Op Day: 2
Subjective
-
Patient examined this morning at 0745 and this evening at 1700
No issues overnight
Still reports abd distension / discomfort from that but no significant abdominal pain
Passing small amts of gas, no BM yet
Denies fevers/chills, nausea
NGT in place with high output - 3.2L yest
Objective
-
Vital Signs
Temp Pulse Resp BP Pulse Ox
98.7 F 80 16 114/66 97
09/09/25 19:28 09/09/25 20:00 09/09/25 20:00 09/09/25 20:00 09/09/25 20:25
Intake and Output
09/08/25 09/09/25 09/10/25
06:59 06:59 06:59
Intake Total 2640 / 2640 60 / 60
Output Total 3020 / 3020 4790 / 4790 530 / 530
Balance -380 / -380 -4730 / -4730 -530 / -530
Intake:
Oral fluids 1440 / 1440 60 / 60
IV fluids (Total) 1200 / 1200
Output:
Drain Output (Total) 270 / 270 140 / 140 30 / 30
Lower Abdomen Fausto-Martines 270 / 270 140 / 140 30 / 30
Gastrointestinal tube output ( 3250 / 3250 500 / 500
Total)
[place] Sump 3250 / 3250 500 / 500
Urine, [place] 2750 / 2750 1400 / 1400
Other:
Number of immeasurable emeses? 1
Laboratory Results
09/09/25 04:45
09/09/25 04:45
Physical Exam
-
General - well developed, well nourished, no acute distress
Chest - clear bilaterally
Abdomen - soft, moderately distended, non-tender, LLQ MT with minimal serosang output
Genitalia - normal, mixon yellow-orange
Skin - warm & dry with no rash
Neuro - AOx3, no motor deficits
Extremities - no edema
Incision - clean, dry
Dressing - clean, dry, intact
[2025-09-09] MEDS: CRESTOR PO (21:02)
[2025-09-10] VITALS (16 sets, daily range): BP systolic 94–147; BP diastolic 53–83; PULSE 75–77; O2SAT 97–100; BMI 31.5
[2025-09-10] MEDS: LOPRESSOR 2.5 MG IV ×4 (00:04→18:22)
[2025-09-10] MEDS: LR 1000 IV ×3 (00:05→21:00)
--- NOTE | 2025-09-10 03:20 | PTCARENOTE ---
2L O2 placed for desat to 80s on RA while sleeping. NGT remains in place to LIS. BPs stable at this time. Lopez remains intact. IVF maintained. Care ongoing.
[2025-09-10 06:17] LABS: Hematocrit 27.2 % (39.0-52.0); Hemoglobin 8.9 g/dL (13.0-18.0); Mean Corp Hgb Conc. 32.7 g/dL (33.0-37.0); Mean Corpuscular Volume 95.4 fL (80.0-94.0); Nucleated Red Blood Cells % 0 % (-); Platelet Count 232 10^3/uL (130-400); Red Cell Dist. Width 14.1 % (11.5-14.5)
[2025-09-10 06:30] LABS: Blood Urea Nitrogen 25 mg/dl (9-20); Calcium 8.3 mg/dl (8.4-10.2); Carbon Dioxide 32 mmol/L (22-30); Chloride 102 mmol/L (98-107); Estimated Creatinine Clearance 69 ml/min; Glucose 104 mg/dl (70-99); Potassium 3.8 mmol/L (3.5-5.1); Sodium 135 mmol/L (135-145); eGFR > 60.00
--- NOTE | 2025-09-10 07:31 | W.PN.URO.CBU ---
Today's Communication / Plan
-
NGT per GS
- Trend H/H
- Continue mixon and MT drain until NGT is out
- Ambulate / OOB
- Incentive spirometry
Assessment / Plan
-
80M POD#6 s/p robotic left nephroureterctomy, KANNAN. Post-operative acute blood loss anemia requiring blood transfusion and ACS requiring hep gtt > now discontinued.
ileus
Diagnosis
-
Date of Service: September 10, 2025
-
Post Op Day:
Patient Diagnosis:
Left Renal Urothelial Carcinoma
Intraperitoneal and Retroperitoneal Adhesions, extenive
Blood-loss anemia
Ileus
s/p Robotic Left Radical Nephroureterectomy and lysis of Adhesions
Post Op Day: 7
Subjective
-
'I'm feeling better, passing some gas.'
Objective
-
Vital Signs
Temp Pulse Resp BP Pulse Ox
99.1 F 74 16 130/83 98
09/10/25 04:21 09/10/25 06:00 09/10/25 06:00 09/10/25 06:00 09/10/25 06:00
Intake and Output
09/09/25 09/10/25 09/11/25
06:59 06:59 06:59
Intake Total 60 / 60
Output Total 4790 / 4790 855 / 855
Balance -4730 / -4730 -855 / -855
Intake:
Oral fluids 60 / 60
Output:
Drain Output (Total) 140 / 140 30 / 30
Lower Abdomen Fausto-Martines 140 / 140 30 / 30
Gastrointestinal tube output ( 3250 / 3250 500 / 500
Total)
[place] Sump 3250 / 3250 500 / 500
Urine, Mixon 1400 / 1400 325 / 325
Laboratory Results
09/10/25 05:59
09/10/25 05:59
Physical Exam
-
General - well developed, well nourished, no acute distress; NGT in place
Abdomen - soft, non-tender, positive bowel sounds, no CVAT
MT - thinly bloody output
Genitalia - Mixon with yellow urine
Skin - warm & dry with no rash
Neuro - AOx3, no motor deficits
Extremities - no clubbing, no cyanosis, no edema
Incisions - clean, dry
Care Review
Data Reviewed
Discussed with: Nursing
--- NOTE | 2025-09-10 08:24 | W.PN.CARDCBS ---
Today's Communication / Plan
-
Remains hemodynamically stable with preserved EF
Remains euvolemic
EF is preserved on technically limited echoes from Sep 04 and Sep 06.
Eventual plan for ischemic eval with left heart cath inpt vs outpt pending clinical course.
Cont rectal ASA
Continue IV Lopressor.
Resume rosuvastatin 20 mg daily once taking p.o.'s.
Impression / Plan
-
.
PCP: Dr. Acevedo
Cardiology: Saw Dr. Fontana 2021
Impression:
Admitted following planned left nephrectomy
Post op Inferior STEMI 09/04/25
s/p robotic left nephrectomy 09/04/2025
Postoperative hypotension and blood loss
Left renal pelvic urothelial carcinoma
Post op ileus
HTN
Hyperlipidemia
Prediabetes, HgbA1c 6.3% 08/19/2025
Echo 09/04/2025: LVEF 55% and very technically limited study
Echo 09/06/2025: TDS despite use of IV echo contrast, preserved LV function with EF 60 to 65% very mild aortic stenosis with peak/mean gradients of 20/11 mmHg respectively, no AR.
technically limited study with poor endomyocardial definition despite the use of IV echo contrast.
Plan:
Medically complex 80-year-old gentleman admitted with hematuria found to have left Renal Urothelial Carcinoma s/p Robotic Left Radical Nephroureterectomy and lysis of Adhesions
-Postoperative course has been complicated by hypotension and blood loss Status post 4 units packed red blood cells
-Postoperative course also complicated by myocardial infarct, Peak troponin 51
-Patient with MT drain
-Postop ileus with abdominal x-ray 09/05/2025 showing probable diffuse enterocolitis/ileus and constipation which had been improving however worsened.
Cont post op care as per surgery as he remains NPO with NGT with ileus
Cont post op nephrectomy care as per urology
Cont medical therapy for now for post op inferior STEMI with peak trop 51.
Remains hemodynamically stable with preserved EF
Remains euvolemic
EF is preserved on technically limited echoes from Sep 04 and Sep 06.
Eventual plan for ischemic eval with left heart cath inpt vs outpt pending clinical course.
Prior Wenckebach on monitor, no significant heart block or arrhythmia
Cont rectal ASA
Continue IV Lopressor.
Resume rosuvastatin 20 mg daily once taking p.o.'s.
No ACEI/ARB with recent nephrectomy
Prediabetes with hemoglobin A1c 6.3%
Defer to medicine management.
Discussed with at bedside Sep 09
Progress Note - Risk Control Consultant
Subjective
Date of Service: September 10, 2025
Pt seen and examined. No complaints. No chest pain or shortness of breath.
Objective
Labs:
09/10/25 05:59
09/10/25 05:59
Labs
Hgb 8.9 g/dL (13.0-18.0) L 09/10/25 05:59
Hct 27.2 % (39.0-52.0) L 09/10/25 05:59
Plt Count 232 10^3/uL (130-400) 09/10/25 05:59
PT 14.0 Sec (11.4-14.6) 09/04/25 15:28
INR 1.03 09/04/25 15:28
APTT Cancelled 09/08/25 00:30
Sodium 135 mmol/L (135-145) 09/10/25 05:59
Potassium 3.8 mmol/L (3.5-5.1) 09/10/25 05:59
BUN 25 mg/dl (9-20) H 09/10/25 05:59
Creatinine 1.0 mg/dL (0.7-1.3) 09/10/25 05:59
Glucose 104 mg/dl (70-99) H 09/10/25 05:59
Troponins
09/08/25 09/08/25
05:21 05:21
Troponin I 9.710 H* Cancelled
Vital Signs and I&O:
Vital Signs
Temp Pulse Resp BP Pulse Ox
98.2 F 73 16 130/83 100
09/10/25 07:38 09/10/25 08:00 09/10/25 08:00 09/10/25 06:00 09/10/25 08:00
Vital Signs
Temp Pulse Resp BP Pulse Ox
98.2 F 73 16 130/83 100
09/10/25 07:38 09/10/25 08:00 09/10/25 08:00 09/10/25 06:00 09/10/25 08:00
Intake & Output
09/08/25 09/09/25 09/10/25 09/11/25
06:59 06:59 06:59 06:59
Intake Total 2640 / 2640 60 / 60 1200 / 1200
Output Total 3020 / 3020 4790 / 4790 855 / 855 380 / 380
Balance -380 / -380 -4730 / -4730 -855 / -855 820 / 820
Physical Exam
Physical Exam
General: No acute distress, AAOX3
HEENT: NGT in place
Neck: Negative JVD
Heart: Regular, Negative S3 positive S1/S2, Negative S4, No murmur
Lungs: CTA b/l, negative wheezes/rales/rhonchi
Abd: Positive BS, NT/ND, neg rebound/rigidity/guarding
Ext: Negative cyanosis/clubbing/edema
Neuro: nonfocal
[2025-09-10] MEDS: ASPIRIN 300 MG RECTAL (10:27)
[2025-09-10] MEDS: NSS (PRESERVATIVE FREE) 10 ML IV (10:29)
[2025-09-10] MEDS: PROTONIX IV 40 MG IV (10:31)
--- NOTE | 2025-09-10 10:47 | W.PN.GS2 ---
Today's Communication / Plan
-
-- NGT clamp trial
Assessment / Plan
-
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
converted to open laparotomy for lysis given extent of adhesions from prior surgery.
His course of stay has been complicated by an STEMI and he is being following by Cardiology with plans for eventual cardiac cath. Worsening distention with nausea and vomiting with attempt at dietary advancements. XR imaging consistent with ileus.
NGT now in place with 850 cc out over the last 24hours, passing more consistent flatus, no BM
Leukocytosis resolved, likely secondary to ileus.
Acute blood loss anemia now s/p pRBC's x4. H/H drifting down this am. Management as per primary surgical team
No plans or indication for surgical intervention at this time. Recommend medical management for postoperative ileus with NGT decompression and bowel rest. Close to removal of NGT likely tomorrow, will clamp trial for today.
Plan:
-- NGT decompression, plan for intermittent clamping today for ambulation
-- All other management as per primary team
Subjective Data
-
Date of Service: September 10, 2025
Feels improved. Beginning to pass flatus. No N/V. No BM. No fevers.
Objective Data
-
Intake and Output
09/09/25 09/10/25 09/11/25
06:59 06:59 06:59
Intake Total 60 / 60 1200 / 1200
Output Total 4790 / 4790 855 / 855 380 / 380
Balance -4730 / -4730 -855 / -855 820 / 820
Intake:
Oral fluids 60 / 60
IV fluids (Total) 1200 / 1200
Output:
Drain Output (Total) 140 / 140 30 / 30 30 / 30
Lower Abdomen Fausto-Martines 140 / 140 30 / 30 30 / 30
Gastrointestinal tube output ( 3250 / 3250 500 / 500 350 / 350
Total)
[place] Sump 3250 / 3250 500 / 500 350 / 350
Urine, [place] 1400 / 1400 325 / 325
Vital Signs
Temp Pulse Resp BP Pulse Ox
98.2 F 73 16 130/83 100
09/10/25 07:38 09/10/25 08:00 09/10/25 08:00 09/10/25 06:00 09/10/25 08:00
Lab Results
09/10/25 05:59
09/10/25 05:59
Calcium 8.3 mg/dl (8.4-10.2) L 09/10/25 05:59
Phosphorus 4.0 mg/dl (2.5-4.5) 09/09/25 04:45
Magnesium 2.1 mg/dl (1.6-2.3) 09/09/25 04:45
Total Bilirubin 0.7 mg/dl (0.2-1.3) 09/09/25 04:45
Direct Bilirubin 0.0 mg/dl (0.0-0.4) 09/06/25 01:33
AST 44 U/L (17-59) 09/09/25 04:45
ALT 26 U/L (0-50) 09/09/25 04:45
Alkaline Phosphatase 52 U/L (38-126) 09/09/25 04:45
Total Protein 5.3 g/dl (6.3-8.2) L 09/09/25 04:45
Albumin 3.0 g/dl (3.5-5.0) L 09/09/25 04:45
Physical Exam
-
Gen: NAD
HEENT: light bilious output
Abd: soft, minimal tenderness (improved), mild/moderate distension (improved), non-peritoneal, MT serosang, incision c/d/i
Patient has a mixon catheter: Yes
Patient has a central line: No
--- NOTE | 2025-09-10 11:56 | W.PN.HOSP.TC ---
Today's Communication/Plan
-
OOB
NGT/clamping trial-defer to surgery
IVF for now
trend hgb
Assessment / Plan
Assessment / Plan
General: Well Developed, No Apparent Distress and Obese
HEENT: Normocephalic, Atraumatic, Moist Mucous Membranes and Anicteric
Respiratory: Clear to Auscultation and Non Labored Respirations; Negative Accessory Resp Muscle Use
Cardiac: Regular Rhythm and S1/S2; Negative Murmur, Rub or Gallop
GI: Nontender, Distended and Other (Firm, + bowel sounds) +NGT with dark biliary drainage noted
: +Lopez, +MT drain
Musculoskeletal: No Clubbing, No Cyanosis and No Edema
Skin: Warm and Dry; Negative Rash
Neuro: AO x 3, Nonfocal/Grossly Intact and Central Nerve's Intact
Psych: Calm
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
- Initial ileus immediately after procedure though had signs of restored bowel function and tolerated diet
- Overnight 09/07 and 09/08 had worsening pain with 1 episode of nausea/vomiting
- Surgery consulted, NGT placed, maintain to LIWS for now
- Avoid opiates and anticholinergics
- Monitor serial abdomen exams
- surgery following-clamping trial for ambulation. Continue with IVF.
- urology following-monitor MT drain output
#Acute coronary syndrome
#Dyslipidemia
- Continue with aspirin and IV beta-laquita if blood pressure can tolerate. Restart statin once able to take p.o.
- TTE x 2 with normal LVEF, no wall motion abnormality reported
- Hold beta-laquita for now with hypotension
- Continue to monitor on telemetry
- Ischemic evaluation will defer to cardiology
- Lasix per cardiology; I/Os and weights
#Mobitz type I AVB
- Continue to monitor telemetry
- No indication for PPM
#Postoperative acute blood loss anemia
- Reportedly with 2 L blood loss in the OR; s/p 4 unit PRBC here
- Hemoglobin continues to drop while on IV heparin postoperatively
- Most recent hemoglobin 8.9 also with some dilutional component with IV fluids
#Circulatory shock
- Suspect hemorrhagic etiology with operative blood loss as above
- Was on Levophed briefly though was weaned off with fluids and blood transfusions
- Continue to monitor with MAP goal >65
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
- Tramadol as needed
#Primary hypertension
- Home regimen includes telmisartan 40 mg nightly
- No known history of hypertensive systemic disease
- ARB currently held perioperatively, can likely resume within next 24 to 48 hours
Diet: Regular
DVT: SCDs/significant blood loss
CODE STATUS: Full
Anticipated Discharge: > 48 hours
Subjective/Interval History
-
Date of Service: September 10, 2025
States of passing increased flatulence
no chest pain
bp stable this morning
Objective Data
-
Labs:
Laboratory Results
09/10/25
05:59
WBC 9.0
Hgb 8.9 L
Hct 27.2 L
Plt Count 232
Sodium 135
Potassium 3.8
Chloride 102
Carbon Dioxide 32 H
BUN 25 H
Creatinine 1.0
Glucose 104 H
Calcium 8.3 L
Vital Signs:
Vital Signs
Temp Pulse Resp BP Pulse Ox
98.2 F 78 19 144/73 100
09/10/25 07:38 09/10/25 10:00 09/10/25 10:00 09/10/25 10:00 09/10/25 10:00
I&O
09/09/25 09/10/25 09/11/25
06:59 06:59 06:59
Intake Total 60 / 60 1200 / 1200
Output Total 4790 / 4790 855 / 855 380 / 380
Balance -4730 / -4730 -855 / -855 820 / 820
--- NOTE | 2025-09-10 16:30 | PTCARENOTE ---
Patient remains NPO except for ice chips. Right [place]are [place] sump to intermittent wall suction. Very little drainage today only in the tube. Tube clamped while ambulating with PT/OT today as per surgery orders. Midline abdominal dressing and MT
dressing changed today. [place] intact. MT drained 55 mls serosanguineous drainage. Patient offers no complaints, denies any pain or discomfort, denies nausea. Patient passing gas. VS stable. SR with occasional PAC's. IV fluids infusing as
ordered.
[2025-09-10] MEDS: FLUSH (NSS) 1 FLUSH IV (18:22)
[2025-09-10] MEDS: CRESTOR PO (21:01)
--- NOTE | 2025-09-10 23:52 | PTCARENOTE ---
Pt AAOx3. Pt able to make needs known. Pt appearing to tolerate NGT well. Assessment care and vitals as tolerated. call scott within reach
[2025-09-11] VITALS (13 sets, daily range): BP systolic 115–146; BP diastolic 72–82; BMI 32.3; BMI 31.7
[2025-09-11] MEDS: LOPRESSOR 2.5 MG IV ×5 (00:16→23:46)
--- NOTE | 2025-09-11 06:07 | DOWNTIME ---
There was a [employer] Downtime on 09/11/2025 from 0100 to 09/11/2025 at 0255. Downtime documentation of patient's care, including medication administrations, has been reconciled in the electronic record per guidelines. Refer to the
patient's paper chart under the miscellaneous tab to see printed paper medication records and downtime forms.
[2025-09-11] MEDS: LR 1000 IV ×2 (06:33→17:26)
[2025-09-11 06:44] LABS: Hematocrit 24.3 % (39.0-52.0); Hemoglobin 8.1 g/dL (13.0-18.0); Mean Corp Hgb Conc. 33.3 g/dL (33.0-37.0); Mean Corpuscular Volume 90.7 fL (80.0-94.0); Nucleated Red Blood Cells % 0 % (-); Platelet Count 239 10^3/uL (130-400); Red Cell Dist. Width 13.7 % (11.5-14.5)
[2025-09-11 06:48] LABS: Blood Urea Nitrogen 21 mg/dl (9-20); Calcium 8.3 mg/dl (8.4-10.2); Carbon Dioxide 27 mmol/L (22-30); Chloride 103 mmol/L (98-107); Estimated Creatinine Clearance 77 ml/min; Glucose 89 mg/dl (70-99); Potassium 3.8 mmol/L (3.5-5.1); Sodium 133 mmol/L (135-145); eGFR > 60.00
--- NOTE | 2025-09-11 07:06 | W.PN.URO.CBU ---
Today's Communication / Plan
-
drain and Lopez removed
NGT pr GS
may need additional transfusion for declining H&H
Assessment / Plan
-
80M POD#6 s/p robotic left nephroureterctomy, KANNAN. Post-operative acute blood loss anemia requiring blood transfusion
ileus
Diagnosis
-
Date of Service: September 11, 2025
-
Patient Diagnosis:
Post Op Day:
Post Op Day:
Patient Diagnosis:
Left Renal Urothelial Carcinoma
Intraperitoneal and Retroperitoneal Adhesions, extenive
Blood-loss anemia
Ileus
s/p Robotic Left Radical Nephroureterectomy and lysis of Adhesions
Post Op Day: 7
Subjective
-
tolerated NGT clamp trial yesterday . . . 'and I'm passing more gas'
Objective
-
Vital Signs
Temp Pulse Resp BP Pulse Ox
98.3 F 69 14 132/72 97
09/11/25 03:17 09/11/25 06:02 09/11/25 06:02 09/11/25 06:02 09/11/25 06:02
Intake and Output
09/10/25 09/11/25 09/12/25
06:59 06:59 06:59
Intake Total 2450 / 2450
Output Total 855 / 855 1475 / 1475
Balance -855 / -855 975 / 975
Intake:
Oral fluids 20 / 20
IV fluids (Total) 2400 / 2400
Amount instilled into GI Tube ( 30 / 30
Total)
[place] Sump 30 / 30
Output:
Drain Output (Total) 30 / 30 75 / 75
Lower Abdomen Fausto-Martines 30 / 30 75 / 75
Gastrointestinal tube output ( 500 / 500 850 / 850
Total)
[place] Sump 500 / 500 850 / 850
Urine, Lopez 325 / 325
Urine, Voided 550 / 550
Other:
Number of approximated MODERATE 1
amounts of urine
Laboratory Results
09/11/25 06:02
09/11/25 06:02
Physical Exam
-
General - well developed, well nourished, no acute distress
Abdomen - soft, non-tender, positive bowel sounds
Drain: removed
Genitalia - Lopez -- yellow urine
Skin - warm & dry with no rash
Neuro - AOx3, no motor deficits
Extremities - no clubbing, no cyanosis, no edema
Incisions - stapled, clean, dry
[2025-09-11] MEDS: PROTONIX IV 40 MG IV (08:35)
[2025-09-11] MEDS: ASPIRIN 300 MG RECTAL (08:35)
[2025-09-11] MEDS: NSS (PRESERVATIVE FREE) 10 ML IV (08:35)
[2025-09-11] MEDS: FLUSH (NSS) 1 FLUSH IV ×3 (08:36→17:47)
--- NOTE | 2025-09-11 10:43 | W.PN.GS2 ---
Today's Communication / Plan
-
clamp trial
picc/tpn
Assessment / Plan
-
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
converted to open laparotomy for lysis given extent of adhesions from prior surgery.
His course of stay has been complicated by an STEMI and he is being following by Cardiology with plans for eventual cardiac cath. Worsening distention with nausea and vomiting with attempt at dietary advancements. XR imaging consistent with ileus.
NGT now in place with 500cc overnight, passing more consistent flatus, no BM, did well with clamp trial yesterday
Leukocytosis resolved, likely secondary to ileus.
Acute blood loss anemia now s/p pRBC's x4. H/H drifting down this am. Management as per primary surgical team
No plans or indication for surgical intervention at this time. Recommend medical management for postoperative ileus. Repeat clamp trial today, advised to stop ice chips
Plan:
-- NGT clamp trial, check residual at 14:30, DC tube if <100cc
-- PICC
-- TPN to start today
-- All other management as per primary team
Subjective Data
-
Date of Service: September 11, 2025
Passing more flatus, did well with clamp trial yesterday, taking a lot of ice chips, high residual overnight, clear non bilious fluid, denies n/v
Objective Data
-
Intake and Output
09/10/25 09/11/25 09/12/25
06:59 06:59 06:59
Intake Total 2450 / 2450
Output Total 855 / 855 1475 / 1475
Balance -855 / -855 975 / 975
Intake:
Oral fluids
IV fluids (Total) 2400 / 2400
Amount instilled into GI Tube (
Total)
[place] Sump
Output:
Drain Output (Total)
Lower Abdomen Fausto-Martines
Gastrointestinal tube output ( 500 / 500 850 / 850
Total)
[place] Sump 500 / 500 850 / 850
Urine, Mixon 325 / 325
Urine, Voided 550 / 550
Other:
Number of approximated MODERATE 1
amounts of urine
Vital Signs
Temp Pulse Resp BP Pulse Ox
98.4 F 78 22 145/75 97
09/11/25 07:26 09/11/25 08:00 09/11/25 08:00 09/11/25 08:00 09/11/25 08:22
Lab Results
09/11/25 06:02
09/11/25 06:02
Calcium 8.3 mg/dl (8.4-10.2) L 09/11/25 06:02
Phosphorus 4.0 mg/dl (2.5-4.5) 09/09/25 04:45
Magnesium 2.1 mg/dl (1.6-2.3) 09/09/25 04:45
Total Bilirubin 0.7 mg/dl (0.2-1.3) 09/09/25 04:45
Direct Bilirubin 0.0 mg/dl (0.0-0.4) 09/06/25 01:33
AST 44 U/L (17-59) 09/09/25 04:45
ALT 26 U/L (0-50) 09/09/25 04:45
Alkaline Phosphatase 52 U/L (38-126) 09/09/25 04:45
Total Protein 5.3 g/dl (6.3-8.2) L 09/09/25 04:45
Albumin 3.0 g/dl (3.5-5.0) L 09/09/25 04:45
Physical Exam
-
Gen: NAD
Abd: soft, mild distention, approp ttp, incisions cdi
Patient has a mixon catheter: No
Patient has a central line: No
--- NOTE | 2025-09-11 10:51 | PTCARENOTE ---
NGT clamped until 14:30pm today as per surgery. MT drain removed by urology this AM and order for mixon catheter to be d/c. Mixon d/c at 09:50. Will monitor urine output. Patient remains NPO. IV fluids infusing as ordered. Patient ambulated
to BR had moderate sized BM. Patient reports that he is passing gas. Currently OOB in chair. VS stable. Will monitor.
--- NOTE | 2025-09-11 11:13 | W.PN.CARDCBS ---
Today's Communication / Plan
-
Continue rectal aspirin and IV metoprolol while NPO
Eventual ischemic evaluation�tentatively left heart catheterization once postop ileus resolves
Impression / Plan
-
PCP: Dr. Acevedo
Cardiology: Saw Dr. Fontana 2021
Impression:
Admitted following planned left nephrectomy
Post op Inferior STEMI 09/04/25
s/p robotic left nephrectomy 09/04/2025
Postoperative hypotension and blood loss
Left renal pelvic urothelial carcinoma
Post op ileus
HTN
Hyperlipidemia
Prediabetes, HgbA1c 6.3% 08/19/2025
Echo 09/04/2025: LVEF 55% and very technically limited study
Echo 09/06/2025: TDS despite use of IV echo contrast, preserved LV function with EF 60 to 65% very mild aortic stenosis with peak/mean gradients of 20/11 mmHg respectively, no AR.
technically limited study with poor endomyocardial definition despite the use of IV echo contrast.
Plan:
Medically complex 80-year-old gentleman admitted with hematuria found to have left Renal Urothelial Carcinoma s/p Robotic Left Radical Nephroureterectomy and lysis of Adhesions
-Postoperative course has been complicated by hypotension and blood loss Status post 4 units packed red blood cells
-Postoperative course also complicated by myocardial infarct, Peak troponin 51
-Patient with MT drain
-Postop ileus with abdominal x-ray 09/05/2025 showing probable diffuse enterocolitis/ileus and constipation which had been improving however worsened.
Post op care as per surgery as he remains NPO with NGT with ileus
Cont medical therapy of post op inferior STEMI with peak trop 51.
Remains hemodynamically stable with preserved EF
Appears euvolemic
EF is preserved on technically limited echoes from Sep 04 and Sep 06.
Eventual plan for ischemic eval with left heart cath inpt vs outpt pending clinical course
Prior Wenckebach on monitor, no significant heart block or arrhythmia
Cont rectal ASA
Continue IV Lopressor.
Resume rosuvastatin 20 mg daily once taking p.o.
Discussed with at bedside
Progress Note - [employer]
Subjective
Date of Service: September 11, 2025
No acute overnight events. No cardiac complaints including no chest discomfort or dyspnea.
NG tube in place for postop ileus. Patient tells me he is passing gas but no stool at this point.
Objective
Labs:
09/11/25 06:02
Labs
Hgb 8.1 g/dL (13.0-18.0) L 09/11/25 06:02
Hct 24.3 % (39.0-52.0) L 09/11/25 06:02
Plt Count 239 10^3/uL (130-400) 09/11/25 06:02
PT 14.0 Sec (11.4-14.6) 09/04/25 15:28
INR 1.03 09/04/25 15:28
APTT Cancelled 09/08/25 00:30
Sodium 133 mmol/L (135-145) L 09/11/25 06:02
Potassium 3.8 mmol/L (3.5-5.1) 09/11/25 06:02
BUN 21 mg/dl (9-20) H 09/11/25 06:02
Creatinine 0.9 mg/dL (0.7-1.3) 09/11/25 06:02
Glucose 89 mg/dl (70-99) 09/11/25 06:02
Vital Signs and I&O:
Vital Signs
Temp Pulse Resp BP Pulse Ox
98.4 F 81 26 146/72 97
09/11/25 07:26 09/11/25 10:00 09/11/25 10:00 09/11/25 10:00 09/11/25 10:00
Vital Signs
Temp Pulse Resp BP Pulse Ox
98.4 F 81 26 146/72 97
09/11/25 07:26 09/11/25 10:00 09/11/25 10:00 09/11/25 10:00 09/11/25 10:00
Intake & Output
09/09/25 09/10/25 09/11/25 09/12/25
06:59 06:59 06:59 06:59
Intake Total 60 / 60 2450 / 2450
Output Total 4790 / 4790 855 / 855 1475 / 1475
Balance -4730 / -4730 -855 / -855 975 / 975
Physical Exam
Physical Exam
Gen: NAD, AAOx3
HEENT: NC/AT, sclera anicteric, NG tube in place
Neck: No JVD
CV: RRR, NL s1/s2
Lungs: CTAB
Abd: Distended
: Lopez with rosa urine
Ext: No LE edema
Skin: Warm, dry
Neuro: Non-focal
--- NOTE | 2025-09-11 11:26 | W.PN.HOSP.TC ---
Today's Communication/Plan
-
NGT clamping trial
PICC line/TPN order
IV bb
Voiding trial
OOB/Ambulation
Assessment / Plan
Assessment / Plan
General: Well Developed, No Apparent Distress and Obese
HEENT: Normocephalic, Atraumatic, Moist Mucous Membranes and Anicteric
Respiratory: Clear to Auscultation and Non Labored Respirations; Negative Accessory Resp Muscle Use
Cardiac: Regular Rhythm and S1/S2; Negative Murmur, Rub or Gallop
GI: Nontender, Distended and Other (Firm, + bowel sounds) +NGT clamped
: mixon out/darlin drain out.
Musculoskeletal: No Clubbing, No Cyanosis and No Edema
Skin: Warm and Dry; Negative Rash
Neuro: AO x 3, Nonfocal/Grossly Intact and Central Nerve's Intact
Psych: Calm
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
- Initial ileus immediately after procedure though had signs of restored bowel function and tolerated diet
- Overnight 09/07 and 09/08 had worsening pain with 1 episode of nausea/vomiting
- Surgery consulted,
- Avoid opiates and anticholinergics
- Monitor serial abdomen exams
- surgery following-clamping trial with NGT. Continue with IVF for now and can be stopped once TPN started
- had a bm earlier today.
- Per surgery-pt NPO for prolonged period of time. Plan for TPN.
#Acute coronary syndrome
#Dyslipidemia
- Continue with aspirin and IV beta-laquita if blood pressure can tolerate. Restart statin once able to take p.o.
- TTE x 2 with normal LVEF, no wall motion abnormality reported
- Continue to monitor on telemetry
- Ischemic evaluation will defer to cardiology
- Lasix per cardiology; I/Os and weights
#Mobitz type I AVB
- Continue to monitor telemetry
- No indication for PPM
#Postoperative acute blood loss anemia
- Reportedly with 2 L blood loss in the OR; s/p 4 unit PRBC here
- Most recent hemoglobin 8.1 also with some dilutional component with IV fluids
#Circulatory shock
- Suspect hemorrhagic etiology with operative blood loss as above
- Was on Levophed briefly though was weaned off with fluids and blood transfusions
- Continue to monitor with MAP goal >65
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
- prn pain meds
#Primary hypertension
- Home regimen includes telmisartan 40 mg nightly
- No known history of hypertensive systemic disease
DVT: SCDs/significant blood loss
CODE STATUS: Full
d/w with spouse at bedside in details.
Anticipated Discharge: > 48 hours
Subjective/Interval History
-
Date of Service: September 11, 2025
states had a bowel movement earlier today
mixon/darlin drain out
Objective Data
-
Labs:
Laboratory Results
09/11/25 09/11/25
06:02 10:52
WBC 7.7
Hgb 8.1 L
Hct 24.3 L
Plt Count 239
Sodium 133 L Pending
Potassium 3.8 Pending
Chloride 103 Pending
Carbon Dioxide 27 Pending
BUN 21 H Pending
Creatinine 0.9 Pending
Glucose 89 Pending
Calcium 8.3 L Pending
Total Bilirubin Pending
AST Pending
ALT Pending
Alkaline Phosphatase Pending
Vital Signs:
Vital Signs
Temp Pulse Resp BP Pulse Ox
98.4 F 81 26 146/72 97
09/11/25 07:26 09/11/25 10:00 09/11/25 10:00 09/11/25 10:00 09/11/25 10:00
I&O
09/10/25 09/11/25 09/12/25
06:59 06:59 06:59
Intake Total 2450 / 2450
Output Total 855 / 855 1475 / 1475
Balance -855 / -855 975 / 975
Data Reviewed
-
Total Time Spent with Patient (in minutes): 55
[2025-09-11 12:39] LABS: ALT (SGPT) 19 U/L (0-50); AST (SGOT) 23 U/L (17-59); Albumin 3.0 g/dl (3.5-5.0); Alkaline Phosphatase 49 U/L (38-126); Blood Urea Nitrogen 20 mg/dl (9-20); Calcium 8.6 mg/dl (8.4-10.2); Carbon Dioxide 26 mmol/L (22-30); Chloride 103 mmol/L (98-107); Estimated Creatinine Clearance 76 ml/min; Glucose 92 mg/dl (70-99); Magnesium 2.0 mg/dl (1.6-2.3); Potassium 3.8 mmol/L (3.5-5.1); Sodium 136 mmol/L (135-145); Total Protein 5.2 g/dl (6.3-8.2); Triglycerides 144 mg/dl (10-149); eGFR > 60.00
--- NOTE | 2025-09-11 15:09 | CM ---
F/U: Patient still has BG tube, it will be clamp then release to see if it can be removed. Then clear liquids, but TPN in the meantime due to no food for over 7 days. Eventually hope to stop TPN then food by mouth. Case Management to follow. PLAN:
Home PT/ No Needs vs. SNF.
[2025-09-11] MEDS: NOVOLOG FLEXPEN-LOW RESISTANCE SC ×3 (17:26→23:46)
[2025-09-11 17:31] LABS: Glucose - Point of Care 94 mg/dl (70-99)
--- NOTE | 2025-09-11 18:00 | PTCARENOTE ---
NGT d/c as per surgery. Patient may have sips and chips. PICC line placed. TPN to be started tonight. Patient voided twice since mixon removed. VS stable.
[2025-09-11] MEDS: Parenteral Nutrition, Central 1200 IV (21:07)
[2025-09-11] MEDS: CRESTOR PO (21:14)
[2025-09-11 23:19] LABS: Glucose - Point of Care 127 mg/dl (70-99)
[2025-09-12] VITALS (27 sets, daily range): BP systolic 91–145; BP diastolic 61–91; BMI 32.0
--- NOTE | 2025-09-12 01:35 | PTCARENOTE ---
Assumed care of Pt from day RN. Pt tolerating sips and chip no stomach discomfort at this time. Pt voiding multiple time with good out puts. MT site dressing clean and intact at this time. Call scott with in reach bed in lowest position. Assessment
care and vitals as charted.
[2025-09-12] MEDS: LOPRESSOR 2.5 MG IV (05:13)
[2025-09-12 05:35] LABS: Glucose - Point of Care 154 mg/dl (70-99)
[2025-09-12 05:35] LABS: Hematocrit 23.6 % (39.0-52.0); Hemoglobin 8.0 g/dL (13.0-18.0); Mean Corp Hgb Conc. 33.9 g/dL (33.0-37.0); Mean Corpuscular Volume 90.4 fL (80.0-94.0); Nucleated Red Blood Cells % 0 % (-); Platelet Count 249 10^3/uL (130-400); Red Cell Dist. Width 13.4 % (11.5-14.5)
[2025-09-12] MEDS: NOVOLOG FLEXPEN-LOW RESISTANCE 1 UNITS SC (05:46)
[2025-09-12 06:03] LABS: Blood Urea Nitrogen 21 mg/dl (9-20); Calcium 8.2 mg/dl (8.4-10.2); Carbon Dioxide 29 mmol/L (22-30); Chloride 101 mmol/L (98-107); Estimated Creatinine Clearance 77 ml/min; Glucose 136 mg/dl (70-99); Magnesium 2.0 mg/dl (1.6-2.3); Potassium 3.6 mmol/L (3.5-5.1); Sodium 131 mmol/L (135-145); eGFR > 60.00
[2025-09-12] MEDS: ASPIRIN RECTAL (08:20)
[2025-09-12] MEDS: NSS (PRESERVATIVE FREE) 10 ML IV (08:21)
[2025-09-12] MEDS: PROTONIX IV 40 MG IV (08:22)
--- NOTE | 2025-09-12 08:50 | PTCARENOTE ---
Pt noted to have red pimply rash on back that is itchy. hypoallergenic sheets ordered.
--- NOTE | 2025-09-12 09:54 | CM ---
F/U: There was consult for TPN set up for home, but spoke to Dr. Bradshaw who clarified that this patient will not need this. Patient on clear liquid, HG tube is out, TPN stopped hoepfully by tomorrow, full clear liquids tomorrow, then advance to a
diet. After this, new orders for PT/OT will need to be placed to determine any discharge needs. Case Management to follow. PLAN: Home No Needs vs. VN/PT.
--- NOTE | 2025-09-12 11:10 | W.PN.CARDCBS ---
Today's Communication / Plan
-
Increase Crestor to 40 mg daily
Await stability and plan for cardiac catheterization this admission
Continue post [place] care
Impression / Plan
-
PCP: Dr. Acevedo
Cardiology: Saw Dr. Fontana 2021
Impression:
Admitted following planned left nephrectomy
Post op Inferior STEMI 09/04/25
s/p robotic left nephrectomy 09/04/2025
Postoperative hypotension and blood loss
Left renal pelvic urothelial carcinoma
Post op ileus
HTN
Hyperlipidemia
Prediabetes, HgbA1c 6.3% 08/19/2025
Very short nonsustained runs of PAT x 2 (09/11 and 09/12)
Echo 09/04/2025: LVEF 55% and very technically limited study
Echo 09/06/2025: TDS despite use of IV echo contrast, preserved LV function with EF 60 to 65% very mild aortic stenosis with peak/mean gradients of 20/11 mmHg respectively, no AR.
technically limited study with poor endomyocardial definition despite the use of IV echo contrast.
Plan:
I spoke with the patient and his at the bedside in great detail. Patient is status post myocardial inferior wall infarction. He is not having chest pain nor did he have chest discomfort during hospital stay but has had some GI symptomatology.
He is currently sitting in the chair and recovering from surgery/ileus. Plan is to advance diet as tolerates.
As noted as outpatient he initially presented with hematuria and was found to have left Renal Urothelial Carcinoma s/p Robotic Left Radical Nephroureterectomy and lysis of Adhesions
Postoperative course has been complicated by hypotension and blood loss (s/p 4 units packed red blood cells). Postoperative course also complicated by inferior wall ST elevation myocardial infarct, Peak troponin 51. Most recently he has been noted
to have postop ileus now with clinical improvement. NG tube removed.
As discussed plan at this time is to cont medical therapy of post op inferior STEMI with peak trop 51.
-He remains hemodynamically stable with preserved EF
-He appears euvolemic
-EF is preserved on technically limited echoes from Sep 04 and Sep 06.
-Eventual plan for ischemic eval with left heart cath inpt vs outpt pending clinical course. We discussed at great length today.
As long as continued improvement plan for Tuesday
Switch to oral aspirin 81 mg
Switch beta-laquita to oral as able
Lipid-lowering ordered. LDL cholesterol was 59 on 09/08/2025. We will increase Crestor from 20 mg daily to 40 mg daily.
Glucose intolerance noted with hemoglobin A1c 6% continue lifestyle modification.
Eventually as outpatient consider cardiac rehab versus cancer physical therapy exercise program
-Prior Wecastillo on monitor, no significant heart block or arrhythmia. There were 2 very short runs of PAT noted.
Awaiting pathology from nephrectomy. Continue close follow-up with urology.
We discussed cardio oncology at great length in addition. As an outpatient he will follow-up with cardio oncology program.
I spent 50 minutes in discussion, review of records, discussing pathophysiology and treatment plans. All questions answered.
Progress Note - Charge Out Clerk
Subjective
Date of Service: September 12, 2025
Sitting in chair no complaint.
Objective
Labs:
09/12/25 05:19
09/12/25 05:19
Labs
Hgb 8.0 g/dL (13.0-18.0) L 09/12/25 05:19
Hct 23.6 % (39.0-52.0) L 09/12/25 05:19
Plt Count 249 10^3/uL (130-400) 09/12/25 05:19
PT 14.0 Sec (11.4-14.6) 09/04/25 15:28
INR 1.03 09/04/25 15:28
APTT Cancelled 09/08/25 00:30
Sodium 131 mmol/L (135-145) L 09/12/25 05:19
Potassium 3.6 mmol/L (3.5-5.1) 09/12/25 05:19
BUN 21 mg/dl (9-20) H 09/12/25 05:19
Creatinine 0.9 mg/dL (0.7-1.3) 09/12/25 05:19
Glucose 136 mg/dl (70-99) H 09/12/25 05:19
Vital Signs and I&O:
Vital Signs
Temp Pulse Resp BP Pulse Ox
98.6 F 81 24 137/91 96
09/12/25 07:26 09/12/25 08:03 09/12/25 08:03 09/12/25 08:03 09/12/25 08:32
Vital Signs
Temp Pulse Resp BP Pulse Ox
98.6 F 81 24 137/91 96
09/12/25 07:26 09/12/25 08:03 09/12/25 08:03 09/12/25 08:03 09/12/25 08:32
Intake & Output
09/10/25 09/11/25 09/12/25 09/13/25
06:59 06:59 06:59 06:59
Intake Total 2450 / 2450 2270 / 2270
Output Total 855 / 855 1475 / 1475 1400 / 1400
Balance -855 / -855 975 / 975 870 / 870
Physical Exam
Physical Exam
General: Well developed, well nourished in NAD.
Heart distant heart sounds regular non displaced PMI, RRR, no murmurs, No S3, S4, no rubs.
Lungs: Decreased breath sounds at bases
Abdomen: Distended
Extremities: No clubbing, cyanosis or edema bilaterally.
Neuro: Grossly nonfocal, awake, alert and oriented x3.
[2025-09-12] MEDS: HYDROCORTISONE 1% CREAM 1 APPLIC TOPICAL ×2 (11:22→19:23)
--- NOTE | 2025-09-12 12:08 | W.PN.HOSP.TC ---
Today's Communication/Plan
-
Additional unit of PRBC
Liquid diet
Continue with TPN
Out of bed/incentive spirometry
Continue with aspirin, Toprol and statin
Assessment / Plan
Assessment / Plan
General: Well Developed, No Apparent Distress and Obese
HEENT: Normocephalic, Atraumatic, Moist Mucous Membranes and Anicteric
Respiratory: Clear to Auscultation and Non Labored Respirations; Negative Accessory Resp Muscle Use
Cardiac: Regular Rhythm and S1/S2; Negative Murmur, Rub or Gallop
GI: Nontender, Distended and Other (Firm, + bowel sounds)
: mixon out/darlin drain out.
Musculoskeletal: No Clubbing, No Cyanosis and No Edema
Skin: Warm and Dry; Negative Rash
Neuro: AO x 3, Nonfocal/Grossly Intact and Central Nerve's Intact
Psych: Calm
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
- Initial ileus immediately after procedure though had signs of restored bowel function and tolerated diet
- Overnight 09/07 and 09/08 had worsening pain with 1 episode of nausea/vomiting
- Surgery consulted,
- Avoid opiates and anticholinergics
- Monitor serial abdomen exams
- surgery following NG tube was discontinued. Started on liquid diet
- Per surgery-patient started on TPN
#Acute coronary syndrome
#Dyslipidemia
- Continue with aspirin and beta-laquita. Increase dose of statin.
- TTE x 2 with normal LVEF, no wall motion abnormality reported
- Continue to monitor on telemetry
- Ischemic evaluation will defer to cardiology.
- Lasix per cardiology; I/Os and weights
#Mobitz type I AVB
- Continue to monitor telemetry
- No indication for PPM
#Postoperative acute blood loss anemia
- Reportedly with 2 L blood loss in the OR; s/p 4 unit PRBC here
- Most recent hemoglobin 8. with recent cardiac event we will order additional unit of PRBC
#Circulatory shock
- Suspect hemorrhagic etiology with operative blood loss as above
- Was on Levophed briefly though was weaned off with fluids and blood transfusions
- Continue to monitor with MAP goal >65
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
- prn pain meds
#Primary hypertension
- Home regimen includes telmisartan 40 mg nightly
- No known history of hypertensive systemic disease
DVT: SCDs/significant blood loss
CODE STATUS: Full
d/w with spouse at bedside in details.
Anticipated Discharge: > 48 hours
Subjective/Interval History
-
Date of Service: September 12, 2025
Passing flatulence
No bowel movement since 1 when he had yesterday
Objective Data
-
Labs:
Laboratory Results
09/12/25
05:19
WBC 6.9
Hgb 8.0 L
Hct 23.6 L
Plt Count 249
Sodium 131 L
Potassium 3.6
Chloride 101
Carbon Dioxide 29
BUN 21 H
Creatinine 0.9
Glucose 136 H
Calcium 8.2 L
Vital Signs:
Vital Signs
Temp Pulse Resp BP Pulse Ox
98.1 F 81 24 137/91 96
09/12/25 11:26 09/12/25 08:03 09/12/25 08:03 09/12/25 08:03 09/12/25 08:32
I&O
09/11/25 09/12/25 09/13/25
06:59 06:59 06:59
Intake Total 2450 / 2450 2270 / 2270
Output Total 1475 / 1475 1400 / 1400
Balance 975 / 975 870 / 870
Data Reviewed
-
Total Time Spent with Patient (in minutes): 55
[2025-09-12 12:16] LABS: Glucose - Point of Care 204 mg/dl (70-99)
[2025-09-12] MEDS: NOVOLOG FLEXPEN-LOW RESISTANCE 2 UNITS SC (12:52)
[2025-09-12] MEDS: LOW STRENGTH ASPIRIN 81 MG PO (12:53)
--- NOTE | 2025-09-12 13:25 | PTCARENOTE ---
one unit prbcs infusing per order for hemoglobin of 8.0. pt tolerating liquid diet.
--- NOTE | 2025-09-12 13:41 | W.PN.URO.CBU ---
Today's Communication / Plan
-
no urologic changes
diet and TPN per GS
Assessment / Plan
-
80M POD#6 s/p robotic left nephroureterctomy, KANNAN. Post-operative acute blood loss anemia requiring blood transfusions
ileus -- improving
Diagnosis
-
Date of Service: September 12, 2025
-
Post Op Day:
Patient Diagnosis:
Left Renal Urothelial Carcinoma
Intraperitoneal and Retroperitoneal Adhesions, extenive
Blood-loss anemia
Ileus
s/p Robotic Left Radical Nephroureterectomy and lysis of Adhesions
Post Op Day: 8
Subjective
-
voiding
taking some nutrition
Objective
-
Vital Signs
Temp Pulse Resp BP Pulse Ox
99.7 F 85 17 121/74 97
09/12/25 12:59 09/12/25 13:00 09/12/25 13:00 09/12/25 13:00 09/12/25 13:00
Intake and Output
09/11/25 09/12/25 09/13/25
06:59 06:59 06:59
Intake Total 2450 / 2450 2270 / 2270 0 / 0
Output Total 1475 / 1475 1400 / 1400
Balance 975 / 975 870 / 870 0 / 0
Intake:
Oral fluids 20 / 20 270 / 270
IV fluids (Total) 2400 / 2400 1500 / 1500
TPN/PPN 500 / 500
Amount instilled into GI Tube ( 30 / 30
Total)
[place] Sump 30 / 30
Blood Product Amount Infused ( 0 / 0
mL)
Packed Rbc Leukoreduced Unit 0 / 0
[id number]
Output:
Drain Output (Total) 75 / 75
Lower Abdomen AdamarisMartines /
Gastrointestinal tube output ( 850 / 850
Total)
[place] Sump 850 / 850
Urine, Lopez 560 / 560
Urine, Voided 550 / 550 840 / 840
Other:
Number of approximated SMALL 1
amounts of urine
Number of approximated MODERATE 1
amounts of urine
Laboratory Results
09/12/25 05:19
09/12/25 05:19
Physical Exam
-
General - well developed, well nourished, no acute distress
Chest - clear bilaterally
Abdomen - soft, non-tender, positive bowel sounds, no CVAT, no incisional pain or distention
Genitalia - normal
Rectal - normal
Skin - warm & dry with no rash
Neuro - AOx3, no motor deficits
Extremities - no clubbing, no cyanosis, no edema
Incision - clean, dry
Dressing - clean, dry, intact
[2025-09-12 18:35] LABS: Glucose - Point of Care 132 mg/dl (70-99)
[2025-09-12] MEDS: NOVOLOG FLEXPEN-LOW RESISTANCE SC ×2 (18:38→23:48)
[2025-09-12] MEDS: CRESTOR 40 MG PO (19:24)
[2025-09-12] MEDS: TOPROL XL 12.5 MG PO (19:24)
[2025-09-12] MEDS: Parenteral Nutrition, Central 1200 IV (21:20)
[2025-09-12 23:45] LABS: Glucose - Point of Care 140 mg/dl (70-99)
[2025-09-13] VITALS (12 sets, daily range): BP systolic 93–128; BP diastolic 54–83; PULSE 85; BMI 32.2
--- NOTE | 2025-09-13 02:07 | PTCARENOTE ---
Pt denies complaints. Able to ambulate to bathroom and back with minimal assistance. TPN infusing per orders. 2L O2 placed HS for desat to 80s. Call scott within reach. Care ongoing.
[2025-09-13 04:59] LABS: Hematocrit 25.3 % (39.0-52.0); Hemoglobin 8.6 g/dL (13.0-18.0); Mean Corp Hgb Conc. 34.0 g/dL (33.0-37.0); Mean Corpuscular Volume 90.4 fL (80.0-94.0); Nucleated Red Blood Cells % 0 % (-); Platelet Count 249 10^3/uL (130-400); Red Cell Dist. Width 13.3 % (11.5-14.5)
[2025-09-13 05:37] LABS: Blood Urea Nitrogen 19 mg/dl (9-20); Calcium 8.0 mg/dl (8.4-10.2); Carbon Dioxide 28 mmol/L (22-30); Chloride 103 mmol/L (98-107); Estimated Creatinine Clearance 77 ml/min; Glucose 131 mg/dl (70-99); Magnesium 1.9 mg/dl (1.6-2.3); Potassium 3.8 mmol/L (3.5-5.1); Sodium 133 mmol/L (135-145); eGFR > 60.00
[2025-09-13 06:16] LABS: Glucose - Point of Care 119 mg/dl (70-99)
[2025-09-13] MEDS: NOVOLOG FLEXPEN-LOW RESISTANCE SC ×3 (06:19→18:19)
[2025-09-13] MEDS: TOPROL XL 12.5 MG PO ×2 (07:59→20:08)
[2025-09-13] MEDS: LOW STRENGTH ASPIRIN 81 MG PO (07:59)
[2025-09-13] MEDS: HYDROCORTISONE 1% CREAM 1 APPLIC TOPICAL ×2 (07:59→20:04)
--- NOTE | 2025-09-13 08:00 | TRANSFER ---
assumed care of pt after shift report. Pt AAOx3. VSS. Assessment as documented. Pt resting comfortably. Call scott within reach.
[2025-09-13] MEDS: NSS (PRESERVATIVE FREE) 10 ML IV (08:01)
[2025-09-13] MEDS: PROTONIX IV 40 MG IV (08:01)
--- NOTE | 2025-09-13 08:26 | W.PN.URO.CBU ---
Today's Communication / Plan
-
fit for discharge urologically when TPN is off and regular diet is tolerated
by report, cardiology might delay discharge to permit cardiac catheterization on Tuesday
Assessment / Plan
-
80M POD#6 s/p robotic left nephroureterctomy, KANNAN. Post-operative acute blood loss anemia requiring blood transfusions
ileus -- resolved
Diagnosis
-
Date of Service: September 13, 2025
-
Post Op Day:
Patient Diagnosis:
Left Renal Urothelial Carcinoma
Intraperitoneal and Retroperitoneal Adhesions, extenive
Blood-loss anemia
Ileus
non-STEMI
s/p Robotic Left Radical Nephroureterectomy and lysis of Adhesions
Post Op Day: 9
Subjective
-
'I'm moving my bowels. I feel good. I want to go home.'
Objective
-
Vital Signs
Temp Pulse Resp BP Pulse Ox
98.0 F 82 13 122/79 100
09/13/25 02:49 09/13/25 07:59 09/13/25 06:01 09/13/25 07:59 09/13/25 06:01
Intake and Output
09/12/25 09/13/25 09/14/25
06:59 06:59 06:59
Intake Total 2270 / 2270 2250 / 2250 480 / 480
Output Total 1400 / 1400 700 / 700 200 / 200
Balance 870 / 870 1550 / 1550 280 / 280
Intake:
Oral fluids 270 / 270 1400 / 1400 480 / 480
IV fluids (Total) 1500 / 1500
TPN/PPN 500 / 500 600 / 600
Blood Product Amount Infused ( 250 / 250
mL)
Packed Rbc Leukoreduced Unit 250 / 250
[id number]
Output:
Urine, Lopez 560 / 560
Urine, Voided 840 / 840 700 / 700 200 / 200
Other:
Number of approximated SMALL 1
amounts of urine
Laboratory Results
09/13/25 04:15
09/13/25 04:15
Physical Exam
-
General - well developed, well nourished, no acute distress
Abdomen - soft, non-tender, positive bowel sounds, no distention
Skin - warm & dry with no rash
Neuro - AOx3, no motor deficits
Extremities - no clubbing, no cyanosis, no edema
Incisions - stapled, clean, dry
[2025-09-13 09:18] LABS: Total Iron Binding Capacity 184 ug/dl (261-462)
[2025-09-13 09:20] LABS: Iron < 20 ug/dl (49-181)
--- NOTE | 2025-09-13 09:55 | W.PN.GS2 ---
Addendum entered and electronically signed by David Gooden MD 09/13/25 10:38:
I saw and examined the patient.
The Cat Scan Technologist's note was reviewed and I agree with the note.
Comment: Ileus improving. Remains distended on exam. Scott CLD, passing flatus and now BMs as well. Adv to fulls today with supps, no further TPN planned. Will follow.
Original Note:
Today's Communication / Plan
-
Full liquids with supplements
Complete current bag of TPN then d/c
Assessment / Plan
-
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
POD #9 robotic left nephroureterectomy which was converted to open laparotomy for lysis given extent of adhesions from prior surgery.
His course of stay has been complicated by an STEMI and he is being following by Cardiology with plans for eventual cardiac cath. Worsening distention with nausea and vomiting with attempt at dietary advancements post operativerly. XR imaging
consistent with ileus. Followed initially with NGT on TPN
Leukocytosis resolved, likely secondary to ileus.
Acute blood loss anemia now s/p pRBC's x5, h/h stable
Improving ileus with +flatus/stools. NGT out. Tolerating clears
Plan:
-- Advance to FLD
-- Complete current bag of TPN then D/C TPN
-- All other management as per primary team
Subjective Data
-
Date of Service: September 13, 2025
Pt seen and examined at bedside with Dr. Gooden. OOB to chair. Feeling better overall. Passing a good amount of flatus. 3 BM's yesterday but none today. Tolerating liquids.
Objective Data
-
Intake and Output
09/12/25 09/13/25 09/14/25
06:59 06:59 06:59
Intake Total 2270 / 2270 2250 / 2250 480 / 480
Output Total 1400 / 1400 700 / 700 200 / 200
Balance 870 / 870 1550 / 1550 280 / 280
Intake:
Oral fluids 270 / 270 1400 / 1400 480 / 480
IV fluids (Total) 1500 / 1500
TPN/PPN 500 / 500 600 / 600
Blood Product Amount Infused ( 250 / 250
mL)
Packed Rbc Leukoreduced Unit 250 / 250
[id number]
Output:
Urine, Mixon 560 / 560
Urine, Voided 840 / 840 700 / 700 200 / 200
Other:
Number of approximated SMALL 1
amounts of urine
Vital Signs
Temp Pulse Resp BP Pulse Ox
99.0 F 82 13 122/79 97
09/13/25 07:55 09/13/25 07:59 09/13/25 06:01 09/13/25 07:59 09/13/25 08:10
Lab Results
09/13/25 04:15
09/13/25 04:15
Calcium 8.0 mg/dl (8.4-10.2) L 09/13/25 04:15
Phosphorus 3.2 mg/dl (2.5-4.5) 09/13/25 04:15
Magnesium 1.9 mg/dl (1.6-2.3) 09/13/25 04:15
Total Bilirubin 0.8 mg/dl (0.2-1.3) 09/11/25 12:03
Direct Bilirubin 0.0 mg/dl (0.0-0.4) 09/06/25 01:33
AST 23 U/L (17-59) 09/11/25 12:03
ALT 19 U/L (0-50) 09/11/25 12:03
Alkaline Phosphatase 49 U/L (38-126) 09/11/25 12:03
Total Protein 5.2 g/dl (6.3-8.2) L 09/11/25 12:03
Albumin 3.0 g/dl (3.5-5.0) L 09/11/25 12:03
Physical Exam
-
Gen: NAD
Abd: soft, mild distention, approp ttp, incisions cdi
Patient has a mixon catheter: No
Patient has a central line: No
--- NOTE | 2025-09-13 10:10 | W.PN.CARDCBS ---
Today's Communication / Plan
-
Cardiac catheterization on Tuesday
1 dose 20 mg IV Lasix given
Follow labs
Post [place] care
Impression / Plan
-
PCP: Dr. Acevedo
Cardiology: Saw Dr. Fontana 2021
Impression:
Admitted following planned left nephrectomy
Post op Inferior STEMI 09/04/25
s/p robotic left nephrectomy 09/04/2025
Postoperative hypotension and blood loss
Left renal pelvic urothelial carcinoma
Post op ileus
HTN
Hyperlipidemia
Prediabetes, HgbA1c 6.3% 08/19/2025
Very short nonsustained runs of PAT x 2 (09/11 and 09/12)
Echo 09/04/2025: LVEF 55% and very technically limited study
Echo 09/06/2025: TDS despite use of IV echo contrast, preserved LV function with EF 60 to 65% very mild aortic stenosis with peak/mean gradients of 20/11 mmHg respectively, no AR.
technically limited study with poor endomyocardial definition despite the use of IV echo contrast.
Plan:
Patient is status post myocardial inferior wall infarction postsurgical. He is not having chest pain nor did he have chest discomfort during hospital stay but has had some GI symptomatology. He is currently sitting in the chair and recovering from
surgery. Ileus improved. Still on TPN and diet is advancing.
As noted as outpatient he initially presented with hematuria and was found to have left Renal Urothelial Carcinoma s/p Robotic Left Radical Nephroureterectomy and lysis of Adhesions
Postoperative course has been complicated by hypotension and blood loss (s/p 4 units packed red blood cells). Postoperative course also complicated by inferior wall ST elevation myocardial infarct, Peak troponin 51.
Cardiology diagnosis includes discussed at length today. He is sitting in the chair and feeling well overall. He is weight is up 5 pounds overall likely from fluid.
As discussed plan at this time is to cont medical therapy of post op inferior STEMI with peak trop 51. With catheterization on Tuesday.
-He remains hemodynamically stable with preserved EF. Echo images are difficult even with contrast. To my review likely inferior/inferolateral hypokinesis with preserved EF.
- His weight is up 5 pounds. Initial proBNP was elevated.
Will give 1 dose of IV Lasix. Creatinine is normal.
-Status post inferior wall [place]. Mild hypokinesis of the inferior wall on echo although technically limited. We discussed the risks and benefits of proceeding with cardiac catheterization. We discussed potential outcomes. I also discussed with
urology through secure texting that patient is stable and if dual antiplatelet therapy needed he may proceed.
Left heart catheterization on Tuesday.
Continue aspirin 81 mg
Lipid-lowering ordered and intensified. LDL cholesterol was 59 on 09/08/2025. We will increase Crestor from 20 mg daily to 40 mg daily.
Glucose intolerance noted with hemoglobin A1c 6% continue lifestyle modification.
Eventually as outpatient consider cardiac rehab versus cancer physical therapy exercise program
-Prior Wecastillo on monitor, no significant heart block or arrhythmia. There were 2 very short runs of PAT noted during hospital stay. Current telemetry stable.
-Probably very mild volume overload (exogenous fluid). proBNP 4130 on 09/08. Weight is up 5 pounds. Exam leaning a little wet.
Caution with diuresis and any nephrotoxic medication given nephrectomy.
Will give 1 dose of IV Lasix. Then continue to follow and dietary modifications
-Patient requests lower carbohydrate diet. Will defer to nutrition and primary service to alter diet.
Awaiting pathology from nephrectomy. Continue close follow-up with urology.
We discussed cardio oncology at great length in addition. As an outpatient he will follow-up with cardio oncology program.
I spent 50 minutes in discussion, review of records, discussing cardiac catheterization and treatment plans. All questions answered.
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
Subjective
Date of Service: September 13, 2025
Feeling tired but better overall. No chest pain, palpitations.
Objective
Labs:
09/13/25 04:15
09/13/25 04:15
Labs
Hgb 8.6 g/dL (13.0-18.0) L 09/13/25 04:15
Hct 25.3 % (39.0-52.0) L 09/13/25 04:15
Plt Count 249 10^3/uL (130-400) 09/13/25 04:15
PT 14.0 Sec (11.4-14.6) 09/04/25 15:28
INR 1.03 09/04/25 15:28
APTT Cancelled 09/08/25 00:30
Sodium 133 mmol/L (135-145) L 09/13/25 04:15
Potassium 3.8 mmol/L (3.5-5.1) 09/13/25 04:15
BUN 19 mg/dl (9-20) 09/13/25 04:15
Creatinine 0.9 mg/dL (0.7-1.3) 09/13/25 04:15
Glucose 131 mg/dl (70-99) H 09/13/25 04:15
Vital Signs and I&O:
Vital Signs
Temp Pulse Resp BP Pulse Ox
99.0 F 82 13 122/79 97
09/13/25 07:55 09/13/25 07:59 09/13/25 06:01 09/13/25 07:59 09/13/25 08:10
Vital Signs
Temp Pulse Resp BP Pulse Ox
99.0 F 82 13 122/79 97
09/13/25 07:55 09/13/25 07:59 09/13/25 06:01 09/13/25 07:59 09/13/25 08:10
Intake & Output
09/11/25 09/12/25 09/13/25 09/14/25
06:59 06:59 06:59 06:59
Intake Total 2450 / 2450 2270 / 2270 2250 / 2250 480 / 480
Output Total 1475 / 1475 1400 / 1400 700 / 700 200 / 200
Balance 975 / 975 870 / 870 1550 / 1550 280 / 280
Physical Exam
Physical Exam
General: Well developed, well nourished in NAD.
Heart: Distant heart sounds, regular, 1/6 basal systolic murmur
Lungs: Decreased at the bases
Abdomen: -distended.
Extremities: No clubbing, cyanosis and trivial edema bilaterally.
Neuro: Grossly nonfocal, awake, alert and oriented x3.
[2025-09-13] MEDS: LASIX 20 MG IV (10:26)
--- NOTE | 2025-09-13 10:44 | W.PN.HOSP.TC ---
Today's Communication/Plan
-
Diet advance to fulls
Agree with IV Lasix
Trend hemoglobin
Out of bed/ambulation
Can likely transfer out of IMU-will defer to primary
start IV iron
Assessment / Plan
Assessment / Plan
General: Well Developed, No Apparent Distress and Obese
HEENT: Normocephalic, Atraumatic, Moist Mucous Membranes and Anicteric
Respiratory: Clear to Auscultation and Non Labored Respirations; Negative Accessory Resp Muscle Use
Cardiac: Regular Rhythm and S1/S2; Negative Murmur, Rub or Gallop
GI: Nontender, Distended and Other (Firm, + bowel sounds)
: mixon out/darlin drain out.
Musculoskeletal: No Clubbing, No Cyanosis and No Edema
Skin: Warm and Dry; Negative Rash
Neuro: AO x 3, Nonfocal/Grossly Intact and Central Nerve's Intact
Psych: Calm
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
- Initial ileus immediately after procedure though had signs of restored bowel function and tolerated diet
- Overnight 09/07 and 09/08 had worsening pain with 1 episode of nausea/vomiting
- Surgery consulted,
- Avoid opiates and anticholinergics
- Monitor serial abdomen exams
- surgery following NG tube was discontinued. Diet advance to fulls.
- Per surgery-patient started on TPN
#Acute coronary syndrome
#Dyslipidemia
- Continue with aspirin and beta-laquita. Increase dose of statin.
- TTE x 2 with normal LVEF, no wall motion abnormality reported
- Continue to monitor on telemetry
- Ischemic evaluation will defer to cardiology. Plan for cardiac cath 09/16/25
- Lasix per cardiology; I/Os and weights. Agree with IV Lasix.
#Mobitz type I AVB
- Continue to monitor telemetry
- No indication for PPM
#Postoperative acute blood loss anemia
- Reportedly with 2 L blood loss in the OR; s/p 5 unit PRBC here
- Hemoglobin 8.6. Goal greater than 8.
- Start IV iron.
#Circulatory shock
- Suspect hemorrhagic etiology with operative blood loss as above
- Was on Levophed briefly though was weaned off with fluids and blood transfusions
- Continue to monitor with MAP goal >65
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
- prn pain meds
#Primary hypertension
- Home regimen includes telmisartan 40 mg nightly
- No known history of hypertensive systemic disease
#Mild hyponatremia
-monitor for now
DVT: SCDs/significant blood loss
CODE STATUS: Full
Anticipated Discharge: > 48 hours
Subjective/Interval History
-
Date of Service: September 13, 2025
Pt worried about protein intake-Pt remains TPN so told him it has protein content.
had bm earlier today
Objective Data
-
Labs:
Laboratory Results
09/13/25
04:15
WBC 8.2
Hgb 8.6 L
Hct 25.3 L
Plt Count 249
Sodium 133 L
Potassium 3.8
Chloride 103
Carbon Dioxide 28
BUN 19
Creatinine 0.9
Glucose 131 H
Calcium 8.0 L
Vital Signs:
Vital Signs
Temp Pulse Resp BP Pulse Ox
99.0 F 82 13 122/79 97
09/13/25 07:55 09/13/25 07:59 09/13/25 06:01 09/13/25 07:59 09/13/25 08:10
I&O
09/12/25 09/13/25 09/14/25
06:59 06:59 06:59
Intake Total 2270 / 2270 2250 / 2250 480 / 480
Output Total 1400 / 1400 700 / 700 200 / 200
Balance 870 / 870 1550 / 1550 280 / 280
Data Reviewed
-
Total Time Spent with Patient (in minutes): 55
[2025-09-13 10:51] LABS: Ferritin 164.0 ng/ml (17.9-464.0)
[2025-09-13 12:12] LABS: Glucose - Point of Care 147 mg/dl (70-99)
--- NOTE | 2025-09-13 13:40 | CM ---
POD #9 left nephroureterectomy and lysis adhesions from prior surgery. Cardiac management S/P Stemi this hospitalization. Planned Cardiac Cath on Tuesday09/16/25. Increased to full liquids. remains on TPN until tolerating advancement of diet.
Discharge POC: Awaiting updated therapy evals and recs.
[2025-09-13] MEDS: FERRLECIT 110 MG IV (14:32)
[2025-09-13 18:06] LABS: Glucose - Point of Care 140 mg/dl (70-99)
[2025-09-13] MEDS: CRESTOR 40 MG PO (20:05)
[2025-09-13 22:55] LABS: Glucose - Point of Care 114 mg/dl (70-99)
[2025-09-14] VITALS (11 sets, daily range): BP systolic 90–123; BP diastolic 54–92; BMI 31.9
[2025-09-14] MEDS: NOVOLOG FLEXPEN-LOW RESISTANCE SC (00:58)
[2025-09-14 03:25] LABS: Hematocrit 25.0 % (39.0-52.0); Hemoglobin 8.5 g/dL (13.0-18.0); Mean Corp Hgb Conc. 34.0 g/dL (33.0-37.0); Mean Corpuscular Volume 87.7 fL (80.0-94.0); Nucleated Red Blood Cells % 0 % (-); Platelet Count 276 10^3/uL (130-400); Red Cell Dist. Width 13.6 % (11.5-14.5)
[2025-09-14 03:42] LABS: Blood Urea Nitrogen 17 mg/dl (9-20); Calcium 8.2 mg/dl (8.4-10.2); Carbon Dioxide 28 mmol/L (22-30); Chloride 102 mmol/L (98-107); Estimated Creatinine Clearance 77 ml/min; Glucose 105 mg/dl (70-99); Magnesium 1.9 mg/dl (1.6-2.3); Potassium 3.7 mmol/L (3.5-5.1); Sodium 130 mmol/L (135-145); eGFR > 60.00
--- NOTE | 2025-09-14 08:00 | PTCARENOTE ---
Received pt after shift report. Pt AAOx3, VSS. 98% on room air. Pt completed TPN overnight and is tolerating a full liquid diet for breakfast. Pt is able to make his needs known and denies pain. Will continue the plan of care. Call scott within
reach.
[2025-09-14 08:05] LABS: Glucose - Point of Care 124 mg/dl (70-99)
[2025-09-14] MEDS: HYDROCORTISONE 1% CREAM 1 APPLIC TOPICAL ×2 (08:20→20:30)
[2025-09-14] MEDS: PROTONIX IV 40 MG IV (08:25)
[2025-09-14] MEDS: LOW STRENGTH ASPIRIN 81 MG PO (08:25)
[2025-09-14] MEDS: TOPROL XL 12.5 MG PO ×2 (08:25→20:31)
[2025-09-14] MEDS: NSS (PRESERVATIVE FREE) 10 ML IV (08:25)
--- NOTE | 2025-09-14 08:45 | W.PN.URO.CBU ---
Today's Communication / Plan
-
Advance to regular diet (confirmed w/ GS)
OOB and ambulating
Aspirin per Cardiology
Plan for catheterization Mon 09/16 per Cardiology
Assessment / Plan
-
Left Renal Urothelial Carcinoma
Intraperitoneal and Retroperitoneal Adhesions, extenive
Blood-loss anemia
Ileus
non-STEMI
09/04: s/p Robotic Left Radical Nephroureterectomy and Lysis of Adhesions
Post-op acute blood loss anemia requiring transfusions => H/H stabilized.
Post-op ileus => resolved.
Diagnosis
-
Date of Service: September 14, 2025
-
Post Op Day:
Patient Diagnosis:
Left Renal Urothelial Carcinoma
Intraperitoneal and Retroperitoneal Adhesions, extenive
Blood-loss anemia
Ileus
non-STEMI
09/04: s/p Robotic Left Radical Nephroureterectomy and Lysis of Adhesions
Subjective
-
Tolerating fulls.
Passing significant flatus, small liquid BMs this AM.
Denies abdominal pain.
Voiding w/o issues.
Objective
-
Vital Signs
Temp Pulse Resp BP Pulse Ox
98.2 F 80 29 114/92 98
09/14/25 03:40 09/14/25 08:25 09/14/25 08:00 09/14/25 08:25 09/14/25 08:10
Intake and Output
09/13/25 09/14/25 09/15/25
06:59 06:59 06:59
Intake Total 2250 / 2250 1830 / 1830
Output Total 700 / 700 1450 / 1450 500 / 500
Balance 1550 / 1550 380 / 380 -500 / -500
Intake:
Oral fluids 1400 / 1400 1130 / 1130
IV piggybacks 100 / 100
TPN/PPN 600 / 600 600 / 600
Blood Product Amount Infused ( 250 / 250
mL)
Packed Rbc Leukoreduced Unit 250 / 250
[id number]
Output:
Urine, Voided 700 / 700 1450 / 1450 500 / 500
Laboratory Results
09/14/25 03:08
09/14/25 03:08
Physical Exam
-
General - well developed, well nourished, no acute distress
Abdomen - soft, non-tender, obese abdomen, no incisional pain or distention
Genitalia - normal
Neuro - AOx3, no motor deficits
Extremities - no clubbing, no cyanosis, no edema
Incision - clean, dry
Dressing - clean, dry, intact
Counseling
-
D/w patient.
D/w RN.
D/w GS.
Care Review
Data Reviewed
Discussed with: Hospitalist and Nursing
Total Time Spent with Patient (in minutes): 35
--- NOTE | 2025-09-14 09:02 | W.PN.CARDCBS ---
Today's Communication / Plan
-
As needed IV Lasix
Follow creatinine
Aspirin
Aggressive lipid-lowering
Left heart catheterization Tuesday
Impression / Plan
-
PCP: Dr. Acevedo
Cardiology: Saw Dr. Fontana 2021
Impression:
Admitted following planned left nephrectomy
Post op Inferior STEMI 09/04/25
s/p robotic left nephrectomy 09/04/2025
Postoperative hypotension and blood loss
Left renal pelvic urothelial carcinoma
Post op ileus
HTN
Hyperlipidemia
Prediabetes, HgbA1c 6.3% 08/19/2025
Very short nonsustained runs of PAT x 2 (09/11 and 09/12)
Echo 09/04/2025: LVEF 55% and very technically limited study
Echo 09/06/2025: TDS despite use of IV echo contrast, preserved LV function with EF 60 to 65% very mild aortic stenosis with peak/mean gradients of 20/11 mmHg respectively, no AR.
technically limited study with poor endomyocardial definition despite the use of IV echo contrast.
Plan:
-Recovering postoperatively
As noted as outpatient he initially presented with hematuria and was found to have left Renal Urothelial Carcinoma s/p Robotic Left Radical Nephroureterectomy and lysis of Adhesions
Postoperative course has been complicated by hypotension and blood loss (s/p 4 units packed red blood cells). Postoperative course also complicated by inferior wall ST elevation myocardial infarct, Peak troponin 51.
Cardiology diagnosis includes discussed at length today. He is sitting in the chair and feeling well overall. He is weight is up 5 pounds overall likely from fluid.
-Follow volume status with daily weights and consider as needed IV Lasix.
- Left heart catheterization on Tuesday
-Status post inferior wall [place]. Mild hypokinesis of the inferior wall on echo although technically limited. We discussed the risks and benefits of proceeding with cardiac catheterization. We discussed potential outcomes. I also discussed with
urology through secure texting that patient is stable and if dual antiplatelet therapy needed he may proceed.
Left heart catheterization on Tuesday.
Continue aspirin 81 mg
Lipid-lowering ordered and intensified. LDL cholesterol was 59 on 09/08/2025. We will increase Crestor from 20 mg daily to 40 mg daily.
Glucose intolerance noted with hemoglobin A1c 6% continue lifestyle modification.
Eventually as outpatient consider cardiac rehab versus cancer physical therapy exercise program
-Prior Wecastillo on monitor, no significant heart block or arrhythmia. There were 2 very short runs of PAT noted during hospital stay. Current telemetry stable.
-Probably very mild volume overload (exogenous fluid). proBNP 4130 on 09/08. Weight is up 5 pounds. Exam leaning a little wet.
Caution with diuresis given recent nephrectomy. Will check daily I's and O's and follow laboratory values
-Patient requests lower carbohydrate diet. Will defer to nutrition and primary service to alter diet.
Awaiting pathology from nephrectomy. Continue close follow-up with urology.
We discussed cardio oncology at great length in addition. As an outpatient he will follow-up with cardio oncology program.
I spent 50 minutes in discussion, review of records, discussing cardiac catheterization and treatment plans. All questions answered.
Progress Note - Ux Manager
Subjective
Date of Service: September 14, 2025
No chest pain today
Objective
Labs:
09/14/25 03:08
09/14/25 03:08
Labs
Hgb 8.5 g/dL (13.0-18.0) L 09/14/25 03:08
Hct 25.0 % (39.0-52.0) L 09/14/25 03:08
Plt Count 276 10^3/uL (130-400) 09/14/25 03:08
PT 14.0 Sec (11.4-14.6) 09/04/25 15:28
INR 1.03 09/04/25 15:28
APTT Cancelled 09/08/25 00:30
Sodium 130 mmol/L (135-145) L 09/14/25 03:08
Potassium 3.7 mmol/L (3.5-5.1) 09/14/25 03:08
BUN 17 mg/dl (9-20) 09/14/25 03:08
Creatinine 0.9 mg/dL (0.7-1.3) 09/14/25 03:08
Glucose 105 mg/dl (70-99) H 09/14/25 03:08
Vital Signs and I&O:
Vital Signs
Temp Pulse Resp BP Pulse Ox
98.2 F 80 29 114/92 98
09/14/25 03:40 09/14/25 08:25 09/14/25 08:00 09/14/25 08:25 09/14/25 08:10
Vital Signs
Temp Pulse Resp BP Pulse Ox
98.2 F 80 29 114/92 98
09/14/25 03:40 09/14/25 08:25 09/14/25 08:00 09/14/25 08:25 09/14/25 08:10
Intake & Output
09/12/25 09/13/25 09/14/25 09/15/25
06:59 06:59 06:59 06:59
Intake Total 2270 / 2270 2250 / 2250 1830 / 1830
Output Total 1400 / 1400 700 / 700 1450 / 1450 500 / 500
Balance 870 / 870 1550 / 1550 380 / 380 -500 / -500
Physical Exam
Physical Exam
����Physical Exam
���������������������General:��no apparent distress, not acutely ill
���������������������������Neck:��supple. no meningeal signs. normal psoterior pharynx
������������������������
���������������������������Heart:��s1/s2 regular rate and rhythm, no murmur. equal radial pulses.
��������������������������Lungs: ��no acute respiratory distress. clear bilaterally
����������������������Abdomen:�normal bowel sounds. not tender. no CVAT
��������������������������Neuro:��alert and oriented. no focal neurological deficits
������������������������������Skin: ��no rash
�����������������������Psychiatric:�well kept. interactive and cooperative
�����������������������Extremities:��no edema. no calf tenderness. negative homans. good distal pulses
��
�
--- NOTE | 2025-09-14 11:54 | W.PN.HOSP.TC ---
Today's Communication/Plan
-
Continue aspirin, statin and beta-laquita
IV iron
Monitor diet tolerance diet transfer regular
Can transfer out of IMU
Assessment / Plan
Assessment / Plan
General: Well Developed, No Apparent Distress and Obese
HEENT: Normocephalic, Atraumatic, Moist Mucous Membranes and Anicteric
Respiratory: Clear to Auscultation and Non Labored Respirations; Negative Accessory Resp Muscle Use
Cardiac: Regular Rhythm and S1/S2; Negative Murmur, Rub or Gallop
GI: Nontender, Distended and Other (Firm, + bowel sounds)
: mixon out/darlin drain out.
Musculoskeletal: No Clubbing, No Cyanosis and No Edema
Skin: Warm and Dry; Negative Rash
Neuro: AO x 3, Nonfocal/Grossly Intact and Central Nerve's Intact
Psych: Calm
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
- Initial ileus immediately after procedure though had signs of restored bowel function and tolerated diet
- Overnight 09/07 and 09/08 had worsening pain with 1 episode of nausea/vomiting
- Surgery consulted,
- Avoid opiates and anticholinergics
- Monitor serial abdomen exams
- surgery following NG tube was discontinued.
- Per surgery-TPN discontinued after 48 hours. Diet has been advanced to regular. Patient passing flatulence having bowel movements
#Acute coronary syndrome
#Dyslipidemia
- Continue with aspirin and beta-laquita. Increase dose of statin.
- TTE x 2 with normal LVEF, no wall motion abnormality reported
- Continue to monitor on telemetry
- Ischemic evaluation will defer to cardiology. Plan for cardiac cath 09/16/25
- Lasix per cardiology; I/Os and weights. Agree with IV Lasix as needed. Hold off on aggressive diuresis as patient has status post nephroureterectomy and monitor creatinine closely for cardiac catheterization.
#Mobitz type I AVB
- Continue to monitor telemetry
- No indication for PPM
#Postoperative acute blood loss anemia
- Reportedly with 2 L blood loss in the OR; s/p 5 unit PRBC here
- Hemoglobin 8.5 Goal greater than 8 as cardiac cath pending
- Start IV iron.
#Circulatory shock
- Suspect hemorrhagic etiology with operative blood loss as above
- Was on Levophed briefly though was weaned off with fluids and blood transfusions
- Continue to monitor with MAP goal >65
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
- prn pain meds
#Primary hypertension
- Home regimen includes telmisartan 40 mg nightly
- No known history of hypertensive systemic disease
#Mild hyponatremia
-monitor for now
DVT: SCDs/significant blood loss
CODE STATUS: Full
Anticipated Discharge: > 48 hours
Subjective/Interval History
-
Date of Service: September 14, 2025
States he passed increasing amount of urine after receiving Lasix.
Objective Data
-
Labs:
Laboratory Results
09/14/25
03:08
WBC 8.1
Hgb 8.5 L
Hct 25.0 L
Plt Count 276
Sodium 130 L
Potassium 3.7
Chloride 102
Carbon Dioxide 28
BUN 17
Creatinine 0.9
Glucose 105 H
Calcium 8.2 L
Vital Signs:
Vital Signs
Temp Pulse Resp BP Pulse Ox
98.1 F 80 29 114/92 98
09/14/25 07:50 09/14/25 08:25 09/14/25 08:00 09/14/25 08:25 09/14/25 08:10
I&O
09/13/25 09/14/25 09/15/25
06:59 06:59 06:59
Intake Total 2250 / 2250 1830 / 1830
Output Total 700 / 700 1450 / 1450 500 / 500
Balance 1550 / 1550 380 / 380 -500 / -500
[2025-09-14 12:22] LABS: Glucose - Point of Care 107 mg/dl (70-99)
--- NOTE | 2025-09-14 14:50 | W.PN.GS2 ---
Addendum entered and electronically signed by Alexis Carrillo MD 09/14/25 15:52:
Tolerating diet and passing flatus and BMs
� General Surgery will sign off; please call for any questions or concerns
Original Note:
Today's Communication / Plan
-
regular diet as tolerated
Assessment / Plan
-
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
POD #10 robotic left nephroureterectomy which was converted to open laparotomy for lysis given extent of adhesions from prior surgery.
His course of stay has been complicated by an STEMI and he is being following by Cardiology with plans for eventual cardiac cath. Worsening distention with nausea and vomiting with attempt at dietary advancements post operatively. XR imaging
consistent with ileus. Followed initially with NGT on TPN
Leukocytosis resolved, likely secondary to ileus.
Acute blood loss anemia now s/p pRBC's x5, h/h stable
Resolving ileus with +flatus/stools.
TPN discontinued on 09/13, now tolerating regular diet
Plan:
-- Continue regular diet as tolerated
-- General surgical team to follow peripherally, please call with questions/concerns
Subjective Data
-
Date of Service: September 14, 2025
Pt seen and examined at bedside with Dr. Carrillo. Denies pain. Notes he is feeling much better. Had some solid food for lunch without n/v or abdominal pain. Continues to pass flatus/stools.
Objective Data
-
Intake and Output
09/13/25 09/14/25 09/15/25
06:59 06:59 06:59
Intake Total 2250 / 2250 1830 / 1830
Output Total 700 / 700 1450 / 1450 500 / 500
Balance 1550 / 1550 380 / 380 -500 / -500
Intake:
Oral fluids 1400 / 1400 1130 / 1130
IV piggybacks 100 / 100
TPN/PPN 600 / 600 600 / 600
Blood Product Amount Infused ( 250 / 250
mL)
Packed Rbc Leukoreduced Unit 250 / 250
[id number]
Output:
Urine, Voided 700 / 700 1450 / 1450 500 / 500
Vital Signs
Temp Pulse Resp BP Pulse Ox
98.1 F 80 29 114/92 98
09/14/25 07:50 09/14/25 08:25 09/14/25 08:00 09/14/25 08:25 09/14/25 08:10
Lab Results
09/14/25 03:08
09/14/25 03:08
Calcium 8.2 mg/dl (8.4-10.2) L 09/14/25 03:08
Phosphorus 3.4 mg/dl (2.5-4.5) 09/14/25 03:08
Magnesium 1.9 mg/dl (1.6-2.3) 09/14/25 03:08
Total Bilirubin 0.8 mg/dl (0.2-1.3) 09/11/25 12:03
Direct Bilirubin 0.0 mg/dl (0.0-0.4) 09/06/25 01:33
AST 23 U/L (17-59) 09/11/25 12:03
ALT 19 U/L (0-50) 09/11/25 12:03
Alkaline Phosphatase 49 U/L (38-126) 09/11/25 12:03
Total Protein 5.2 g/dl (6.3-8.2) L 09/11/25 12:03
Albumin 3.0 g/dl (3.5-5.0) L 09/11/25 12:03
Physical Exam
-
Gen: NAD
Abd: soft, minimal distention, approp ttp, incisions cdi
Patient has a mixon catheter: No
Patient has a central line: No
[2025-09-14] MEDS: FERRLECIT 110 MG IV (15:59)
[2025-09-14 17:43] LABS: Glucose - Point of Care 112 mg/dl (70-99)
[2025-09-14] MEDS: CRESTOR 40 MG PO (20:31)
--- NOTE | 2025-09-14 20:45 | PTCARENOTE ---
Pt sitting up chair. AAOx3. Denies CP or abdominal pain. Ambulating to bathroom. Small soft BM with flatus per pt unseen by this RN. Using urinal at bedside 300mls yellow urine. VSS. Afebrile. SR on CM. 97% pox RA. Tolerating regular diet per pt.
Wounds as documented. Rest of assessment as documented. Call scott remains within reach. Will continue to monitor.
[2025-09-14 21:36] LABS: Glucose - Point of Care 121 mg/dl (70-99)
[2025-09-15] VITALS (13 sets, daily range): BP systolic 87–124; BP diastolic 55–80; BMI 31.7
[2025-09-15 04:00] LABS: Hematocrit 24.4 % (39.0-52.0); Hemoglobin 8.2 g/dL (13.0-18.0); Mean Corp Hgb Conc. 33.6 g/dL (33.0-37.0); Mean Corpuscular Volume 88.4 fL (80.0-94.0); Nucleated Red Blood Cells % 0 % (-); Platelet Count 284 10^3/uL (130-400); Red Cell Dist. Width 13.5 % (11.5-14.5)
[2025-09-15 04:11] LABS: Blood Urea Nitrogen 16 mg/dl (9-20); Calcium 8.3 mg/dl (8.4-10.2); Carbon Dioxide 28 mmol/L (22-30); Chloride 103 mmol/L (98-107); Estimated Creatinine Clearance 76 ml/min; Glucose 98 mg/dl (70-99); Potassium 4.0 mmol/L (3.5-5.1); Sodium 130 mmol/L (135-145); eGFR > 60.00
[2025-09-15 07:45] LABS: Glucose - Point of Care 120 mg/dl (70-99)
[2025-09-15] MEDS: LOW STRENGTH ASPIRIN 81 MG PO (07:55)
[2025-09-15] MEDS: NSS (PRESERVATIVE FREE) 10 ML IV (07:55)
[2025-09-15] MEDS: TOPROL XL 12.5 MG PO ×2 (07:55→21:30)
[2025-09-15] MEDS: PROTONIX IV 40 MG IV (07:56)
[2025-09-15] MEDS: HYDROCORTISONE 1% CREAM 1 APPLIC TOPICAL ×2 (07:56→21:33)
--- NOTE | 2025-09-15 08:25 | W.PN.URO.CBU ---
Today's Communication / Plan
-
Regular diet
OOB and ambulating
NPO@MN
For left heart catheterization tomorrow 09/16 per Cardiology
Discharge planned in 24-48 hrs
Assessment / Plan
-
Left Renal Urothelial Carcinoma
Intraperitoneal and Retroperitoneal Adhesions, extenive
Blood-loss anemia
Ileus
non-STEMI
09/04: s/p Robotic Left Radical Nephroureterectomy and Lysis of Adhesions
Post-op acute blood loss anemia requiring transfusions => H/H stable.
Post-op ileus => resolved.
Diagnosis
-
Date of Service: September 15, 2025
-
Post Op Day:
Patient Diagnosis:
Left Renal Urothelial Carcinoma
Intraperitoneal and Retroperitoneal Adhesions, extenive
Blood-loss anemia
Ileus
non-STEMI
09/04: s/p Robotic Left Radical Nephroureterectomy and Lysis of Adhesions
Subjective
-
Tolerating regular diet x24 hrs.
Passing flatus.
Notes well-formed BMs since yesterday.
Denies pain.
Voiding ~500 cc q3-4 hrs (on IV Lasix per Cardiology).
Objective
-
Vital Signs
Temp Pulse Resp BP Pulse Ox
98.5 F 76 15 119/80 97
09/15/25 07:19 09/15/25 07:55 09/15/25 06:00 09/15/25 07:55 09/15/25 06:00
Intake and Output
09/14/25 09/15/25 09/16/25
06:59 06:59 06:59
Intake Total 1830 / 1830 720 / 720
Output Total 1450 / 1450 2450 / 2450
Balance 380 / 380 -1730 / -1730
Intake:
Oral fluids 1130 / 1130 720 / 720
IV piggybacks 100 / 100
TPN/PPN 600 / 600
Output:
Urine, Voided 1450 / 1450 2450 / 2450
Laboratory Results
09/15/25 03:42
09/15/25 03:42
Physical Exam
-
General - well developed, well nourished, no acute distress
Abdomen - soft, non-tender, incisions c/d/i (drain removed)
Genitalia - normal (Lopez catheter removed)
Neuro - AOx3, no motor deficits
Extremities - no clubbing, no cyanosis, no edema
Incision - clean, dry
Dressing - clean, dry, intact
Counseling
-
D/w patient.
Care Review
Data Reviewed
Discussed with: Cardiology, Nursing and Family
Total Time Spent with Patient (in minutes): 35
--- NOTE | 2025-09-15 08:26 | W.PN.CARDCBS ---
Today's Communication / Plan
-
N.p.o. to midnight for left heart catheterization September 16
Impression / Plan
-
PCP: Dr. Acevedo
Cardiology: Saw Dr. Fontana 2021
Impression:
Admitted following planned left nephrectomy
Post op Inferior STEMI 09/04/25
s/p robotic left nephrectomy 09/04/2025
Postoperative hypotension and blood loss
Left renal pelvic urothelial carcinoma
Post op ileus
HTN
Hyperlipidemia
Prediabetes, HgbA1c 6.3% 08/19/2025
Very short nonsustained runs of PAT x 2 (09/11 and 09/12)
Echo 09/04/2025: LVEF 55% and very technically limited study
Echo 09/06/2025: TDS despite use of IV echo contrast, preserved LV function with EF 60 to 65% very mild aortic stenosis with peak/mean gradients of 20/11 mmHg respectively, no AR.
technically limited study with poor endomyocardial definition despite the use of IV echo contrast.
Plan:
-Recovering postoperatively
As noted as outpatient he initially presented with hematuria and was found to have left Renal Urothelial Carcinoma s/p Robotic Left Radical Nephroureterectomy and lysis of Adhesions
Postoperative course has been complicated by hypotension and blood loss (s/p 4 units packed red blood cells). Postoperative course also complicated by inferior wall ST elevation myocardial infarct, Peak troponin 51.
Cardiology diagnosis includes discussed at length today. He is sitting in the chair and feeling well overall. He is weight is up 5 pounds overall likely from fluid.
-Follow volume status with daily weights and consider as needed IV Lasix.
- Left heart catheterization on Tuesday. I made him n.p.o. after midnight with sips of clears and p.o. meds
-Status post inferior wall WA. Mild hypokinesis of the inferior wall on echo although technically limited. We discussed the risks and benefits of proceeding with cardiac catheterization. We discussed potential outcomes. I also discussed with
urology through secure texting that patient is stable and if dual antiplatelet therapy needed he may proceed.
Left heart catheterization on Tuesday.
Continue aspirin 81 mg
Lipid-lowering ordered and intensified. LDL cholesterol was 59 on 09/08/2025. We will increase Crestor from 20 mg daily to 40 mg daily.
Glucose intolerance noted with hemoglobin A1c 6% continue lifestyle modification.
Eventually as outpatient consider cardiac rehab versus cancer physical therapy exercise program
-Prior Wecastilol on monitor, no significant heart block or arrhythmia. There were 2 very short runs of PAT noted during hospital stay. Current telemetry stable.
-Probably very mild volume overload (exogenous fluid). proBNP 4130 on 09/08. Weight is up 5 pounds. Exam leaning a little wet.
Caution with diuresis given recent nephrectomy. Will check daily I's and O's and follow laboratory values
-Patient requests lower carbohydrate diet. Will defer to nutrition and primary service to alter diet.
Awaiting pathology from nephrectomy. Continue close follow-up with urology.
Dr. Copeland discussed cardio oncology issues with patient and is arranging follow-up in cardio oncology clinic
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
Subjective
Date of Service: September 15, 2025
No further chest pain
Objective
Labs:
09/15/25 03:42
09/15/25 03:42
Labs
Hgb 8.2 g/dL (13.0-18.0) L 09/15/25 03:42
Hct 24.4 % (39.0-52.0) L 09/15/25 03:42
Plt Count 284 10^3/uL (130-400) 09/15/25 03:42
PT 14.0 Sec (11.4-14.6) 09/04/25 15:28
INR 1.03 09/04/25 15:28
APTT Cancelled 09/08/25 00:30
Sodium 130 mmol/L (135-145) L 09/15/25 03:42
Potassium 4.0 mmol/L (3.5-5.1) 09/15/25 03:42
BUN 16 mg/dl (9-20) 09/15/25 03:42
Creatinine 0.9 mg/dL (0.7-1.3) 09/15/25 03:42
Glucose 98 mg/dl (70-99) 09/15/25 03:42
Vital Signs and I&O:
Vital Signs
Temp Pulse Resp BP Pulse Ox
98.5 F 76 15 119/80 97
09/15/25 07:19 09/15/25 07:55 09/15/25 06:00 09/15/25 07:55 09/15/25 06:00
Vital Signs
Temp Pulse Resp BP Pulse Ox
98.5 F 76 15 119/80 97
09/15/25 07:19 09/15/25 07:55 09/15/25 06:00 09/15/25 07:55 09/15/25 06:00
Intake & Output
09/13/25 09/14/25 09/15/25 09/16/25
06:59 06:59 06:59 06:59
Intake Total 2250 / 2250 1830 / 1830 720 / 720
Output Total 700 / 700 1450 / 1450 2450 / 2450
Balance 1550 / 1550 380 / 380 -1730 / -1730
Physical Exam
Physical Exam
����Physical Exam
���������������������General:��no apparent distress, not acutely ill
���������������������������Neck:��supple. no meningeal signs. normal psoterior pharynx
������������������������
���������������������������Heart:��s1/s2 regular rate and rhythm, no murmur. equal radial pulses.
��������������������������Lungs: ��no acute respiratory distress. clear bilaterally
����������������������Abdomen:�normal bowel sounds. not tender. no CVAT
��������������������������Neuro:��alert and oriented. no focal neurological deficits
������������������������������Skin: ��no rash
�����������������������Psychiatric:�well kept. interactive and cooperative
�����������������������Extremities:��no edema. no calf tenderness. negative homans. good distal pulses
��
�
--- NOTE | 2025-09-15 12:37 | W.PN.HOSP.TC ---
Today's Communication/Plan
-
GDMT-asa/statin/bb
Monitor Cr closely
Cath in am
IV iron
monitor diet tolerance
IVU tx
Assessment / Plan
Assessment / Plan
General: Well Developed, No Apparent Distress and Obese
HEENT: Normocephalic, Atraumatic, Moist Mucous Membranes and Anicteric
Respiratory: Clear to Auscultation and Non Labored Respirations; Negative Accessory Resp Muscle Use
Cardiac: Regular Rhythm and S1/S2; Negative Murmur, Rub or Gallop
GI: Nontender, Distended and +bs,
: mixon out/darlin drain out.
Musculoskeletal: No Clubbing, No Cyanosis and No Edema
Skin: Warm and Dry; Negative Rash
Neuro: AO x 3, Nonfocal/Grossly Intact and Central Nerve's Intact
Psych: Calm
#Acute coronary syndrome
#Dyslipidemia
- Continue with aspirin and beta-laquita. Increase dose of statin. A1C 6.
- TTE x 2 with normal LVEF, no wall motion abnormality reported
- Continue to monitor on telemetry
- Plan for cardiac cath 09/16/25
- Lasix per cardiology; I/Os and weights. Agree with IV Lasix as needed. Hold off on aggressive diuresis as patient has status post nephroureterectomy and monitor creatinine closely for cardiac catheterization.
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
- Initial ileus immediately after procedure though had signs of restored bowel function and tolerated diet
- Overnight 09/07 and 09/08 had worsening pain with 1 episode of nausea/vomiting
- Surgery consulted,
- Avoid opiates and anticholinergics
- Monitor serial abdomen exams
- surgery following NG tube was discontinued.
- Per surgery-TPN discontinued after 48 hours. Diet has been advanced to regular. Patient passing flatulence having bowel movements
#Mobitz type I AVB
- Continue to monitor telemetry
- No indication for PPM
#Postoperative acute blood loss anemia
- Reportedly with 2 L blood loss in the OR; s/p 5 unit PRBC here
- Hemoglobin 8.2 Goal greater than 8 as cardiac cath pending
- Started IV iron.
#Circulatory shock
- Suspect hemorrhagic etiology with operative blood loss as above
- Was on Levophed briefly though was weaned off with fluids and blood transfusions
- Continue to monitor with MAP goal >65
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
- prn pain meds
#Primary hypertension
- Home regimen includes telmisartan 40 mg nightly
- No known history of hypertensive systemic disease
#Mild hyponatremia
-monitor for now
DVT: SCDs/significant blood loss
CODE STATUS: Full
d/w with primary team-okay to be transfer out of IMU.
Anticipated Discharge: > 48 hours
Subjective/Interval History
-
Date of Service: September 15, 2025
feeling better
tolerating solids
Objective Data
-
Labs:
Laboratory Results
09/15/25
03:42
WBC 7.3
Hgb 8.2 L
Hct 24.4 L
Plt Count 284
Sodium 130 L
Potassium 4.0
Chloride 103
Carbon Dioxide 28
BUN 16
Creatinine 0.9
Glucose 98
Calcium 8.3 L
Vital Signs:
Vital Signs
Temp Pulse Resp BP Pulse Ox
98.7 F 72 15 102/69 97
09/15/25 11:15 09/15/25 10:42 09/15/25 10:00 09/15/25 10:42 09/15/25 08:15
I&O
09/14/25 09/15/25 09/16/25
06:59 06:59 06:59
Intake Total 1830 / 1830 720 / 720
Output Total 1450 / 1450 2450 / 2450
Balance 380 / 380 -1730 / -1730
[2025-09-15] MEDS: FERRLECIT 110 MG IV (13:01)
[2025-09-15 13:10] LABS: Glucose - Point of Care 115 mg/dl (70-99)
[2025-09-15 17:26] LABS: Glucose - Point of Care 101 mg/dl (70-99)
--- NOTE | 2025-09-15 18:09 | PTCARENOTE ---
Assumed care of patient at beginning of this shift from previous RN. Patient's LOC changed to IVU. Ambulated in [place] with this RN and patient's . Patient aware NPO after MN. See worklist for full assessment and vital signs.
--- NOTE | 2025-09-15 19:23 | PTCARENOTE ---
Patient to be transferred to IVU; report given to Dayo in IVU. retail shift leader RN Kai to send patient; PCT to transport.
[2025-09-15] MEDS: CRESTOR 40 MG PO (21:30)
[2025-09-15] MEDS: REFRESH EYE DROPS (PF) 1 DROPS OPHTH (22:10)
[2025-09-15 23:11] LABS: Glucose - Point of Care 116 mg/dl (70-99)
--- NOTE | 2025-09-15 23:13 | PTCARENOTE ---
Received patient at 1930 from IMU. Report received from donavon RN. Patient arrived via wheelchair. AAOx3, ambulatory. Denies pain. VSS. NS on tele. Lungs clear on RA. Abd rounded, nontender +bowel sounds. Lap sites and old MT site from previous
procedure approximated with steri strips intact. Voiding in urinal. Assessment and VS trends documented in flowsheets. Oriented to room and call scott. Call scott within reach and use encouraged. NPO at midnight for cardiac cath tomorrow. Continuing
with plan of care.
[2025-09-16] VITALS (16 sets, daily range): BP systolic 122–160; BP diastolic 70–144; BMI 31.2
[2025-09-16 04:42] LABS: Hematocrit 25.9 % (39.0-52.0); Hemoglobin 8.8 g/dL (13.0-18.0); Mean Corp Hgb Conc. 34.0 g/dL (33.0-37.0); Mean Corpuscular Volume 87.5 fL (80.0-94.0); Nucleated Red Blood Cells % 0 % (-); Platelet Count 332 10^3/uL (130-400); Red Cell Dist. Width 13.5 % (11.5-14.5)
[2025-09-16 05:06] LABS: ALT (SGPT) 19 U/L (0-50); AST (SGOT) 23 U/L (17-59); Albumin 3.0 g/dl (3.5-5.0); Alkaline Phosphatase 57 U/L (38-126); Blood Urea Nitrogen 14 mg/dl (9-20); Calcium 8.5 mg/dl (8.4-10.2); Carbon Dioxide 29 mmol/L (22-30); Chloride 103 mmol/L (98-107); Estimated Creatinine Clearance 68 ml/min; Glucose 102 mg/dl (70-99); Magnesium 2.0 mg/dl (1.6-2.3); Potassium 4.5 mmol/L (3.5-5.1); Sodium 135 mmol/L (135-145); Total Protein 5.3 g/dl (6.3-8.2); Triglycerides 115 mg/dl (10-149); eGFR > 60.00
--- NOTE | 2025-09-16 07:24 | W.PN.HOSP.TC ---
Today's Communication/Plan
-
Left heart cath today
per them, likely discharge tomorrow after observation
Assessment / Plan
Assessment / Plan
In summary, 80 yo M who underwent robotic L nephroureterectomy for left renal urothelial carcinoma c/b inferior STEMI postoperatively (09/04) who will be undergoing left heart cath per cardiology 09/16/2025
#Acute coronary syndrome
# inferior STEMI
#Dyslipidemia
- Continue with aspirin and beta-laquita. Increase dose of statin. A1C 6.
- TTE x 2 with normal LVEF, no wall motion abnormality reported
- perioperative ST changes noted
- Continue to monitor on telemetry
- Plan for left cardiac cath today, 09/16/25
- Lasix per cardiology; I/Os and weights. Agree with IV Lasix as needed. Hold off on aggressive diuresis as patient has status post nephroureterectomy and monitor creatinine closely for cardiac catheterization.
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
- Initial ileus immediately after procedure though had signs of restored bowel function and tolerated diet
- Overnight 09/07 and 09/08 had worsening pain with 1 episode of nausea/vomiting
- Surgery consulted,
- Avoid opiates and anticholinergics
- Monitor serial abdomen exams
- surgery following NG tube was discontinued.
- Per surgery-TPN discontinued after 48 hours. Diet has been advanced to regular. Patient passing flatulence having bowel movements
#Mobitz type I AVB
- Continue to monitor telemetry
- No indication for PPM
#Postoperative acute blood loss anemia
- Reportedly with 2 L blood loss in the OR; s/p 5 unit PRBC here
- Hemoglobin 8.8; Goal greater than 8 as cardiac cath pending
- Started IV iron.
#Circulatory shock
- Suspect hemorrhagic etiology with operative blood loss as above
- Was on Levophed briefly though was weaned off with fluids and blood transfusions
- Continue to monitor with MAP goal >65
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
- prn pain meds
#Primary hypertension
- Home regimen includes telmisartan 40 mg nightly
- BP are 120s/70s
- No known history of hypertensive systemic disease
#Mild hyponatremia
- resolved
DVT: SCDs/significant blood loss
CODE STATUS: Full
Anticipated Discharge: 24 - 48 hours
Subjective/Interval History
-
Date of Service: September 16, 2025
feels good, RHC today with cardiology
Objective Data
-
Labs:
Laboratory Results
09/16/25
04:20
WBC 8.2
Hgb 8.8 L
Hct 25.9 L
Plt Count 332
Sodium 135
Potassium 4.5
Chloride 103
Carbon Dioxide 29
BUN 14
Creatinine 1.0
Glucose 102 H
Calcium 8.5
Total Bilirubin 0.5
AST 23
ALT 19
Alkaline Phosphatase 57
Vital Signs:
Vital Signs
Temp Pulse Resp BP Pulse Ox
98.1 F 70 18 125/77 97
09/16/25 07:21 09/16/25 07:21 09/16/25 07:21 09/16/25 04:10 09/16/25 07:21
I&O
09/15/25 09/16/25 09/17/25
06:59 06:59 06:59
Intake Total 720 / 720 360 / 360
Output Total 2450 / 2450 1999 / 1999 475 / 475
Balance -1730 / -1730 -1640 / -1640 -475 / -475
Review of Systems
-
History Source: Patient
Constitutional: Reports No Symptoms
Respiratory: Reports No Symptoms
Cardiac: Reports No Symptoms
Abdomen/GI: Reports Other (some bloating)
Genitourinary: Reports No Symptoms
Musculoskeletal: Reports No Symptoms
Neuro: Reports No Symptoms
Physical Exam
-
General: Conversant
HEENT: Normocephalic and Atraumatic
Respiratory: Clear to Auscultation
Cardiac: Other (no murmurs on my exam)
GI: Soft, Nontender and Normal Bowel Sounds
Musculoskeletal: No Edema
Neuro: Awake, Alert, No Motor Deficits and Nonfocal/Grossly Intact
Psych: Calm
[2025-09-16 07:29] LABS: Glucose - Point of Care 105 mg/dl (70-99)
--- NOTE | 2025-09-16 08:00 | PTCARENOTE ---
Pt. received from retail shift manager, NS on the monitor. Pt with itchy rash on back, hydrocortisone will be applied. Pt's VSS, 3 lap sites in tact and old MT site in tact. PT is NPO for L heart cath today.
[2025-09-16] MEDS: NSS (PRESERVATIVE FREE) 10 ML IV (08:52)
[2025-09-16] MEDS: PROTONIX IV 40 MG IV (08:52)
[2025-09-16] MEDS: TOPROL XL 12.5 MG PO ×2 (08:52→21:12)
[2025-09-16] MEDS: HYDROCORTISONE 1% CREAM 1 APPLIC TOPICAL ×2 (08:52→21:13)
[2025-09-16] MEDS: LOW STRENGTH ASPIRIN 81 MG PO (08:54)
--- NOTE | 2025-09-16 09:35 | W.PN.URO.CBU ---
Today's Communication / Plan
-
For left heart catheterization w/ Cardiology today
Plan for discharge tomorrow after observation o/n
Assessment / Plan
-
Left Renal Urothelial Carcinoma
Intraperitoneal and Retroperitoneal Adhesions, extenive
Blood-loss anemia
Ileus
non-STEMI
09/04: s/p Robotic Left Radical Nephroureterectomy and Lysis of Adhesions
Post-op acute blood loss anemia requiring transfusions => H/H stable.
Post-op ileus => resolved.
Diagnosis
-
Date of Service: September 16, 2025
-
Post Op Day:
Patient Diagnosis:
Left Renal Urothelial Carcinoma
Intraperitoneal and Retroperitoneal Adhesions, extenive
Blood-loss anemia
Ileus
non-STEMI
09/04: s/p Robotic Left Radical Nephroureterectomy and Lysis of Adhesions
Subjective
-
Tolerating diet.
+flatus + BMs.
Denies pain.
Objective
-
Vital Signs
Temp Pulse Resp BP Pulse Ox
98.1 F 74 18 125/76 97
09/16/25 07:21 09/16/25 08:52 09/16/25 07:21 09/16/25 08:52 09/16/25 07:21
Intake and Output
09/15/25 09/16/25 09/17/25
06:59 06:59 06:59
Intake Total 720 / 720 360 / 360
Output Total 2450 / 2450 1999 475 / 475
Balance -1730 / -1730 -1640 / -1640 -475 / -475
Intake:
Oral fluids 720 / 720 360 / 360
Output:
Urine, Voided 0 / 0 1999 475 / 475
Laboratory Results
09/16/25 04:20
09/16/25 04:20
Physical Exam
-
General - well developed, well nourished, no acute distress
Abdomen - soft, non-tender, obese abdomen
Skin - warm & dry with no rash
Neuro - AOx3, no motor deficits
Extremities - no clubbing, no cyanosis, no edema
Incision - clean, dry
Dressing - clean, dry, intact
Care Review
Data Reviewed
Discussed with: Cardiology and Nursing
Total Time Spent with Patient (in minutes): 25
--- NOTE | 2025-09-16 10:30 | PTCARENOTE ---
Pt. left the floor taken in own bed to laborer drying department for Left heart cath.
[2025-09-16 11:03] LABS: ACT-LR - POC 179 Seconds (116-155)
[2025-09-16 11:22] LABS: ACT-LR - POC 210 Seconds (116-155)
[2025-09-16 11:36] LABS: ACT-LR - POC 232 Seconds (116-155)
[2025-09-16 11:46] LABS: ACT-LR - POC 256 Seconds (116-155)
[2025-09-16 11:54] LABS: ACT-LR - POC 271 Seconds (116-155)
[2025-09-16 12:06] LABS: ACT-LR - POC 337 Seconds (116-155)
[2025-09-16 12:24] LABS: ACT-LR - POC 335 Seconds (116-155)
--- NOTE | 2025-09-16 13:00 | ITS.CL.CATH ---
Nipple Maker - Catheterization
Cardiac Catheterization
Procedure Report:
LEFT HEART CATH AND CORONARY INTERVENTION
Date of Procedure: September 16, 2025
Referring: Dr. Alexander Morales
PROCEDURES:
1. Coronary angiography
2. Successful stenting of ostial RCA with a 3.5 x 23 mm Xience stent that was implanted at 16 arya and postdilated with a 3.75 mm noncompliant balloon to 18-22 arya
3. Intravascular ultrasound
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 His intraoperative course was prolonged with extensive adhesions and underwent 5-hour surgery and was
given 2 units of packed red blood cells. He was discharged to the PACU/ICU and electrocardiogram was notable for [address] segment elevation in leads III and aVF. The patient was awake and denied any chest discomfort but did report some
incisional pain. Gross hematuria was present. An echocardiogram was performed at bedside and notable for an LVEF of 55%. Serial troponin levels were followed peaking at 51.6 ng/mL. His hematuria slowly improved. He was started on aspirin and
managed conservatively. Over several days his hematuria resolved and he was felt hemodynamically stable to proceed with coronary angiography and stable for dual antiplatelet therapy if needed.
ACCESS: Right radial artery, 6 Guinean sheath. Right common femoral access was obtained for the interventional procedure. A 6 Fr. x 35 cm Bright Tip sheath was inserted due to severe iliofemoral tortuosity.
HEMODYNAMICS (mmHg):
AO (s/d, m) : 127/66, 93
CORONARY FINDINGS
Dominance: Right
LEFT MAIN: Normal
LEFT ANTERIOR DESCENDING: The LAD is moderately calcified and arises normally from the left main and runs in the anterior interventricular groove. The mid LAD has a 50% stenosis proximal to and extending beyond the first diagonal branch. The mid
to distal LAD has luminal irregularities but no focal high-grade obstructive stenosis. The distal vessel wraps completely around the apex supplying a portion of the inferior wall.
CIRCUMFLEX: The circumflex is a large-caliber nondominant vessel supplying a single sizable obtuse marginal branch
RIGHT CORONARY: Cannulation of the right coronary ostium from the right radial approach proved very difficult. I was able to cannulate the RCA origin during deep breath-hold with a wire present in the diagnostic catheter facilitating torque to the
right coronary ostium. The ostium of the RCA is heavily calcified with a 99% ostial stenosis. There is sluggish antegrade flow. The mid to distal RCA has diffuse luminal irregularities but no focal obstructive stenosis
VENTRICULOGRAPHY: Not done
ANGIOPLASTY PROCEDURE DETAIL: Upon review of the diagnostic catheterization films the decision was made to proceed with percutaneous revascularization of the high-grade ostial RCA stenosis. I felt cannulation of the right coronary ostium would be
very difficult and that the lesion represented at high risk plaque for abrupt closure. I therefore chose to obtain arterial access in the right common femoral artery using ultrasound guidance and a 6 Guinean sheath was placed. The iliofemoral
vessels were very tortuous and a 6 Guinean by 35 cm Brite Tip sheath was advanced to the distal abdominal aorta.
Intravenous heparin was administered throughout the procedure. A total of 21,500 units of heparin were given throughout the procedure in order to achieve an ACT in [id number]-ahmygm range. A 180 mg loading dose of ticagrelor was given only after the
guidewire across the ostial stenosis in anticipation of balloon predilation.
The origin of the right coronary artery was cannulated with a 6 Guinean JR4 guiding catheter and with a little luck we were able to advance a BMW guidewire across the high-grade ostial stenosis without significant issues. The wire was advanced into
the distal vessel. Balloon predilation was performed with a 2.0 x 12 mm Euphora balloon which ruptured while it was inflated on the calcified plaque and was removed. A 2.5 x 15 mm NC Euphora was then advanced over the guidewire and serial
inflations were performed in the proximal to ostial portion of the RCA. I attempted to cross the residual stenosis with a 3.5 x 23 mm Xience stent. The stent would not cross and was removed. A GuideLiner catheter was then advanced over the
guidewire and repeat dilation of the ostium/proximal RCA was performed with a 3.0 x 20 mm NC Euphora to 18 arya proximally and 20 arya in the proximal/ostial segment of the RCA. The guide liner was advanced over the noncompliant balloon as it was
deflated and the ostium and we were able to pass the GuideLiner to the proximal segment of the RCA facilitating delivery of the 3.5 x 23 mm Xience stent. The GuideLiner was retracted and the stent was positioned with angiographic and fluoroscopic
guidance near the ostium of the RCA. The stent was implanted at 14 arya.
Intravascular ultrasound was performed in the distal aspect of the stent appeared well-approximated while the proximal portion of the stent was undersized and not well-expanded. The entire stented segment was postdilated with a 3.75 x 15 mm
noncompliant balloon to 18 arya in the mid and distal portion of the stent and 22 arya in the proximal portion of the stent with balloon hanging into the aorta.
RADIATION SUMMARY: Fluoro Time (min): 27.6, Dose (mGy): 1783, DAP (Gy.cm2) : 118
CONCLUSIONS
1. Successful stenting of ostial to proximal RCA with placement of a 3.5 x 23 mm Xience stent that was implanted in 14 arya and postdilated between 18 and 22 arya with a nice angiographic result
RECOMMENDATIONS
1. Uninterrupted dual antiplatelet therapy for 12 months with aspirin and ticagrelor
Copy to: Dr. Alexander Morales
[2025-09-16 13:04] LABS: Glucose - Point of Care 108 mg/dl (70-99)
--- NOTE | 2025-09-16 13:06 | PTCARENOTE ---
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 Right radial site looks good, no ecchymosis or bleeding. Right groin has a small amount of blood on the gauze dressing. VSS, pulses are good on the pedal and radial sites. Pulse ox is 97% on the right distal finger.
Pt is NS on the monitor, echo completed.
--- NOTE | 2025-09-16 13:08 | CM ---
Reviewed chart. Mr. Valenzuela was transferred ro IVU. Met with Mr. Valenzuela to review discharge plans. He states prior to admission he resides with his spouse in a three story home with one step to enter. He states he has a full flight of steps to get to
bedroom/full bathroom. He states he has a powder room on the first floor. He states prior to admission he was independent with ambulation and adls. He states he has a walker, single point cane and crutches at home. He states he has a prescription
plan and uses [facility]. Telephone call to his insurnace to check on co-pay for Brilinta and Ticagrelor . His co-pay for Brilints is $10.00 a month and Ticagrelor is alos $10.00 a month. Reviewed co-pay with him and he is agreeable to the
co-pay. Telephone call to [facility] to see if they have Brilinta 90 mg and Ticagrelor 90 mg in stock. [facility] states they have both in stock. Medical work-up in progress. The discharge plan is to return home with his spouse when
medically stable.
--- NOTE | 2025-09-16 13:52 | PTCARENOTE ---
During post cath angio check, Pt's right groin site was oozing blood. Dressing was changed using Innoseal, gauze and tegaderm and pressure held for a few minutes. Site is still soft all around and right radial site looks great.
[2025-09-16] MEDS: FERRLECIT 110 MG IV (14:30)
[2025-09-16 15:08] LABS: Hematocrit 25.9 % (39.0-52.0); Hemoglobin 8.8 g/dL (13.0-18.0)
[2025-09-16] MEDS: MYLICON 80 MG PO (16:32)
--- NOTE | 2025-09-16 18:00 | PTCARENOTE ---
Pt's right groin site saturated with blood again. Pt was asymptomatic except for needing to urinate. Bladder scan was done and pt showed total of 1090. Pt urinated a small amount about 250 and was not able to urinate any more. Pressure was held
for a total of 20 mins, a second Innoseal was placed with gauze and a tegaderm. Pt was bladder scanned again and was 890. Straight cath was performed on patient and a total of 1225 so far. Pt felt much better and the bleeding stopped.
[2025-09-16] MEDS: CRESTOR 40 MG PO (21:12)
[2025-09-16] MEDS: BRILINTA 90 MG PO (21:12)
[2025-09-16 22:26] LABS: Hematocrit 26.0 % (39.0-52.0); Hemoglobin 8.5 g/dL (13.0-18.0)
[2025-09-17 03:59] VITALS: BP 124/80
[2025-09-17 04:00] VITALS: BP 124/80
[2025-09-17 04:26] VITALS: BMI 30.5
[2025-09-17 04:31] LABS: Hematocrit 26.4 % (39.0-52.0); Hemoglobin 9.0 g/dL (13.0-18.0); Mean Corp Hgb Conc. 34.1 g/dL (33.0-37.0); Mean Corpuscular Volume 88.6 fL (80.0-94.0); Platelet Count 328 10^3/uL (130-400); Red Cell Dist. Width 13.3 % (11.5-14.5)
[2025-09-17 04:49] LABS: Blood Urea Nitrogen 13 mg/dl (9-20); Calcium 8.7 mg/dl (8.4-10.2); Carbon Dioxide 27 mmol/L (22-30); Chloride 102 mmol/L (98-107); Estimated Creatinine Clearance 61 ml/min; Glucose 99 mg/dl (70-99); Potassium 4.0 mmol/L (3.5-5.1); Sodium 131 mmol/L (135-145); eGFR > 60.00
--- NOTE | 2025-09-17 05:59 | PTCARENOTE ---
Pt slept well overnight. Right groin site/ right radial site without issues or complications overnight. Vital signs stable. Pt denies any complaints. Call scott in reach. Will continue to monitor.
--- NOTE | 2025-09-17 07:18 | W.PN.HOSP.TC ---
Today's Communication/Plan
-
- discharge today, per urology and cardiolgy
- should be on DAPT for 1 year followed by aspirin monotherapy
- should continue the b-laquita, statin
- consider checking CBC in 1 week for Hgb
Assessment / Plan
Assessment / Plan
In summary, 80 yo M who underwent robotic L nephroureterectomy for left renal urothelial carcinoma c/b inferior STEMI postoperatively (09/04) who will be undergoing left heart cath per cardiology 09/16/2025
#Acute coronary syndrome s/p Left heart cath with stent
# inferior STEMI
#Dyslipidemia
- Continue with aspirin and beta-laquita. Increase dose of statin. A1C 6.
- TTE x 2 with normal LVEF, no wall motion abnormality reported
- perioperative ST changes noted
- Continue to monitor on telemetry
- Left heart cath with stent to ostial to proximal RCA on 09/16/2025; no reported complications
- Lasix per cardiology; I/Os and weights. Agree with IV Lasix as needed. Hold off on aggressive diuresis as patient has status post nephroureterectomy and monitor creatinine closely for cardiac catheterization.
- should be on DAPT for 1 year followed by aspirin monotherapy
- should continue the b-laquita, statin
- consider checking CBC in 1 week for Hgb
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
- Initial ileus immediately after procedure though had signs of restored bowel function and tolerated diet
- Overnight 09/07 and 09/08 had worsening pain with 1 episode of nausea/vomiting
- Surgery consulted,
- Avoid opiates and anticholinergics
- Monitor serial abdomen exams
- surgery following NG tube was discontinued.
- Per surgery-TPN discontinued after 48 hours. Diet has been advanced to regular. Patient passing flatulence having bowel movements
#Mobitz type I AVB
- Continue to monitor telemetry
- No indication for PPM
#Postoperative acute blood loss anemia
- Reportedly with 2 L blood loss in the OR; s/p 5 unit PRBC here
- Hemoglobin 8.8; Goal greater than 8 as cardiac cath pending
- Started IV iron.
#Circulatory shock
- Suspect hemorrhagic etiology with operative blood loss as above
- Was on Levophed briefly though was weaned off with fluids and blood transfusions
- Continue to monitor with MAP goal >65
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
- prn pain meds
#Primary hypertension
- Home regimen includes telmisartan 40 mg nightly
- BP are 120s/70s
- No known history of hypertensive systemic disease
#Mild hyponatremia
- resolved
DVT: SCDs/significant blood loss
CODE STATUS: Full
Anticipated Discharge: Within 24 hours
Subjective/Interval History
-
Date of Service: September 17, 2025
feels great, continues to deny chest pain or any symptoms
left heart cath yesterday with stent to ostial to proximal RCA
reported that the femoral access site accumulated some bleeding postprocedure
Objective Data
-
Labs:
Laboratory Results
09/16/25 09/17/25
22:05 04:03
WBC 9.5
Hgb 8.5 L 9.0 L
Hct 26.0 L 26.4 L
Plt Count 328
Sodium 131 L
Potassium 4.0
Chloride 102
Carbon Dioxide 27
BUN 13
Creatinine 1.1
Glucose 99
Calcium 8.7
Vital Signs:
Vital Signs
Temp Pulse Resp BP Pulse Ox
97.6 F 69 18 124/80 98
09/17/25 03:59 09/17/25 06:00 09/17/25 03:59 09/17/25 04:00 09/17/25 03:59
I&O
09/16/25 09/17/25 09/18/25
06:59 06:59 06:59
Intake Total 360 / 360 480 / 480
Output Total 1999 3600 / 360
Balance -1640 / -1640 -3120 / -3120
Review of Systems
-
History Source: Patient
Constitutional: Reports No Symptoms
Respiratory: Reports No Symptoms
Cardiac: Reports No Symptoms
Abdomen/GI: Reports No Symptoms
Genitourinary: Reports No Symptoms
Musculoskeletal: Reports No Symptoms
Neuro: Reports No Symptoms
Physical Exam
-
General: Conversant
HEENT: Normocephalic and Atraumatic
Respiratory: Clear to Auscultation
Cardiac: Other (no murmurs on my exam; femoral and radial bandage)
GI: Soft, Nontender and Normal Bowel Sounds
Musculoskeletal: No Edema
Neuro: Awake, Alert, No Motor Deficits and Nonfocal/Grossly Intact
Psych: Calm
[2025-09-17 07:36] VITALS: BP 114/75
[2025-09-17 07:43] LABS: Glucose - Point of Care 116 mg/dl (70-99)
[2025-09-17] MEDS: NSS (PRESERVATIVE FREE) 10 ML IV (08:30)
[2025-09-17] MEDS: FLUSH (NSS) 2 FLUSH IV (08:30)
[2025-09-17] MEDS: PROTONIX IV 40 MG IV (08:30)
[2025-09-17] MEDS: TOPROL XL 12.5 MG PO (08:33)
[2025-09-17] MEDS: BRILINTA 90 MG PO (08:33)
[2025-09-17] MEDS: LOW STRENGTH ASPIRIN 81 MG PO (08:33)
[2025-09-17] MEDS: HYDROCORTISONE 1% CREAM 1 APPLIC TOPICAL (08:35)
--- NOTE | 2025-09-17 11:00 | W.PN.UPDATE ---
Update Note
Progress Note Update
pt cleared by cardiology for discharge
--- NOTE | 2025-09-17 11:01 | W.DS.TRANS ---
DC Summary - Hospice Patient Care Secretary
-
Discharge Instructions:
Discharge Diagnosis/Procedures Left Renal Urothelial Carcinoma, Intraperitoneal
Adhesions, s/p Robotic Nephroureterectomy and
Lysis of Adhesions
NSTEMI, s/p angioplasty and stent to Right
Coronary artery (09/16)
Diet Low Cholesterol
Activity No strenuous activity
Driving Restrictions No driving for 1 week
Bathing Restrictions OK to Shower
Other Services VN,Cardiac Rehab
Wound Care VN: Remove Lopez during AM on Sunday 09/09;
Remove Skin vinita then apply Benzoin, the 10/25
inch full-length steristrips on 09/12
Instructions:
Stand-Alone Forms: DC Instructions- Cath/EP Lab
Changes to Home Medications: No
Discharge Medications:
DC Medications w/original date entered in [employer]
rosuvastatin 20 mg tablet 20 mg PO HS High Cholesterol 07/25/25
olmesartan 40 mg tablet (Benicar) 40 mg PO HS Blood Pressure 08/28/25
tramadol 50 mg tablet 50 mg PO TID PRN severe pain #10 tabs 09/04/25
ticagrelor 90 mg tablet 90 mg PO BID #60 tabs 09/16/25
Home Medication Changes
Pending Results: Yes (surgical pathology)
--- NOTE | 2025-09-17 11:03 | W.PN.CARDCBS ---
Addendum entered and electronically signed by Dennis Thomas DO 09/17/25 14:47:
I saw and examined the patient.
The Gate Manager's note was reviewed and I agree with the note.
Comment:
Plan:
Reviewed cardiac catheterization and discussed dual antiplatelet therapy and PCI to RCA
Appears stable from a cardiovascular standpoint for discharge.
Continue medications including Toprol, Crestor, aspirin and Brilinta.
Outpatient cardiac rehab
Outpatient cardiac follow-up arranged.
Original Note:
Today's Communication / Plan
-
s/p RCA PCI
hgb stable
continue asa, brilinta
crestor 40mg HS
toprol 12.5mg BID
protonix 40mg daily
cardiac rehab
OP cardiac follow up arranged
Impression / Plan
-
PCP: Dr. Acevedo
Cardiology: Saw Dr. Fontana 2021
Impression:
Admitted following planned left nephrectomy
Post op Inferior STEMI 09/04/25
s/p robotic left nephrectomy 09/04/2025
Postoperative hypotension and blood loss
Left renal pelvic urothelial carcinoma
Post op ileus
HTN
Hyperlipidemia
Prediabetes, HgbA1c 6.3% 08/19/2025
Very short nonsustained runs of PAT x 2 (09/11 and 09/12)
Echo 09/04/2025: LVEF 55% and very technically limited study
Echo 09/06/2025: TDS despite use of IV echo contrast, preserved LV function with EF 60 to 65% very mild aortic stenosis with peak/mean gradients of 20/11 mmHg respectively, no AR.
technically limited study with poor endomyocardial definition despite the use of IV echo contrast.
Plan:
-As noted as outpatient he initially presented with hematuria and was found to have left Renal Urothelial Carcinoma s/p Robotic Left Radical Nephroureterectomy and lysis of Adhesions
-Postoperative course has been complicated by hypotension and blood loss (s/p 4 units packed red blood cells). Postoperative course also complicated by inferior wall ST elevation myocardial infarct, Peak troponin 51.
-underwent cardiac cath 09/16 resulting in RCA PCI
-feeling well overnight
-did have some oozing from groin site but no pain or issues this AM. hgb stable at 9.0
-continue asa, brilinta
-LDL 59. in setting of NC, crestor dose increased to 40mg QPM. will need to monitor as also on brilinta.
-EF normal by limited echo 09/06
-OP olmesartan on hold at present as toprol added this admission. has been in SR on review of tele overnight. reportedly prior love noted
-cardiac rehab as arranged
-Awaiting pathology from nephrectomy. Continue close follow-up with urology.
-Dr. Copeland discussed cardio oncology issues with patient and is arranging follow-up in cardio oncology clinic. follow up arranged
-ok for DC to home today
-ok to shower
-d/w nursing
-d/w primary service via TT
Progress Note - Hogshead Dumper
Subjective
Date of Service: September 17, 2025
denies CP, SOB, palpitations. feeling well. eager for DC
Objective
Labs:
09/17/25 04:03
09/17/25 04:03
Labs
Hgb 9.0 g/dL (13.0-18.0) L 09/17/25 04:03
Hct 26.4 % (39.0-52.0) L 09/17/25 04:03
Plt Count 328 10^3/uL (130-400) 09/17/25 04:03
PT 14.0 Sec (11.4-14.6) 09/04/25 15:28
INR 1.03 09/04/25 15:28
APTT Cancelled 09/08/25 00:30
Sodium 131 mmol/L (135-145) L 09/17/25 04:03
Potassium 4.0 mmol/L (3.5-5.1) 09/17/25 04:03
BUN 13 mg/dl (9-20) 09/17/25 04:03
Creatinine 1.1 mg/dL (0.7-1.3) 09/17/25 04:03
Glucose 99 mg/dl (70-99) 09/17/25 04:03
Vital Signs and I&O:
Vital Signs
Temp Pulse Resp BP Pulse Ox
98.5 F 81 18 114/75 98
09/17/25 07:40 09/17/25 08:33 09/17/25 07:40 09/17/25 08:33 09/17/25 07:40
Vital Signs
Temp Pulse Resp BP Pulse Ox
98.5 F 81 18 114/75 98
09/17/25 07:40 09/17/25 08:33 09/17/25 07:40 09/17/25 08:33 09/17/25 07:40
Intake & Output
09/15/25 09/16/25 09/17/25 09/18/25
07:59 07:59 07:59 07:59
Intake Total 720 / 720 360 / 360 480 / 480
Output Total 1950 / 1950 2475 / 2475 3125 / 3125
Balance -1230 / -1230 -2115 / -2115 -2645 / -2645
Physical Exam
Physical Exam
GEN: No distress, awake, alert, oriented x3. sitting in chair
HEENT: supple, anicteric, mmm, eomi
LUNGS: CTA B/L, no wheezes/rales
CV: Reg, S1/S2, no murmur
ABD: soft, BS+, NT/ND
EXT: No cyanosis, clubbing, edema
NEURO: Gross non-focal
SKIN: Warm, pink, dry. No rash. R wrist site with mild jerilyn-incisional ecchymoses.
--- NOTE | 2025-09-17 11:20 | CM ---
Addendum entered by Shruthi Godoy 09/17/25 11:50:
Received message from [facility] to see if he would still need [facility] care and stables removed. Spoke with his RN. [facility] is out and he is voiding fine. Cassy are out. Met with Mr. Valenzuela to review [facility] with him.. At this time he
is declining VNA services since the mixon and stables are out. Updated [facility].
Original Note:
Reviewed chart. Met with Mr. Valenzuela to review discharge plans. He states he feels well and maybe able to go home soon. Telephone call to [facility] to confirm his Brilinta 90 mg po bid is ready for pick-ip. [facility] states it is ready and
co-pay $10.00 a month. Reviewed above with Mr. Valenzuela. Prior to admission he resides with his spouse in a three story home with one step to enter. He has a full flight of steps to get to bedroom/full bathroom. He has a powder room on the first
floor. Prior to admission he was independent with ambulation and adls. He states he has a walker, single point cane and crutches at home. He states he has a prescription plan and uses [facility]. Medical work-up in progress. The
discharge plan is to return home with his spouse when medically stable.
--- NOTE | 2025-09-17 11:20 | PTCARENOTE ---
received patient this am sitting in chair eating breakfast. monitor shows NSR, VSS. patient has dual lumen Right upper arm PICC. right radial dsg. D/I, distal pulse palpable. right groin ecchymotic, dsg. D/I, distal pulse palpable. trace edema noted
on bilat. extremities. 3 sites noticed on abd from surgery, sterri strips intact. patient voiding without difficulties. patient hoping to be discharged to home today.
[2025-09-17 12:05] VITALS: BP 107/68
--- NOTE | 2025-09-17 12:38 | PTCARENOTE ---
PICC line removed. patient in shower as ordered.
--- NOTE | 2025-09-17 13:27 | PTCARENOTE ---
D/C instructions given to patient, verbalizes understanding. PICC line D/C'd by vascular access team. monitor D/C'd, personal belongings packed and sent home with patient. patient is eating lunch and waiting for family to come pick him up.
--- NOTE | 2025-09-17 13:56 | PTCARENOTE ---
D/C to home via wc accompanied by staff.
== END 2025-09-17 14:01 | disposition home or self-care (01) | DRG 656 ==
LOC: IVU 06:17
PROVIDERS: Hospitalist; Internal Medicine Interventional Cardiology; Nurse Practitioner; Nurse Practitioner Family; Nurse Practitioner Primary Care; Student in an Organized Health Care Education/Training Program; Surgery; Urology; ADMITTING PHYSICIAN Specialist; CONSULT PHYSICIAN Internal Medicine; CONSULT PHYSICIAN Internal Medicine Cardiovascular Disease; CONSULT PHYSICIAN Internal Medicine Critical Care Medicine; CONSULT PHYSICIAN Surgery; FAMILY PHYSICIAN Family Medicine
PROC: 0TT14ZZ Resection of Left Kidney, Percutaneous Endoscopic Approach (ICD-10-PCS; 2025-09-04)
PROC: 30233N1 Transfusion of Nonautologous Red Blood Cells into Peripheral Vein, Percutaneous Approach (ICD-10-PCS; 2025-09-04)
PROC: 8E0W4CZ Robotic Assisted Procedure of Trunk Region, Percutaneous Endoscopic Approach (ICD-10-PCS; 2025-09-04)
PROC: 0DNW4ZZ Release Peritoneum, Percutaneous Endoscopic Approach (ICD-10-PCS; 2025-09-04)
PROC: 0TT74ZZ Resection of Left Ureter, Percutaneous Endoscopic Approach (ICD-10-PCS; 2025-09-04)
PROC: 3E0436Z Introduction of Nutritional Substance into Central Vein, Percutaneous Approach (ICD-10-PCS; 2025-09-11)
PROC: 02HV33Z Insertion of Infusion Device into Superior Vena Cava, Percutaneous Approach (ICD-10-PCS; 2025-09-11)
PROC: B240ZZ3 Ultrasonography of Single Coronary Artery, Intravascular (ICD-10-PCS; 2025-09-16)
PROC: 027034Z Dilation of Coronary Artery, One Artery with Drug-eluting Intraluminal Device, Percutaneous Approach (ICD-10-PCS; 2025-09-16)
PROC: B2111ZZ Fluoroscopy of Multiple Coronary Arteries using Low Osmolar Contrast (ICD-10-PCS; 2025-09-16)
PROC: 4A023N7 Measurement of Cardiac Sampling and Pressure, Left Heart, Percutaneous Approach (ICD-10-PCS; 2025-09-16)
DX: C65.2 Malignant neoplasm of left renal pelvis (principal); I21.19 ST elevation (STEMI) myocardial infarction involving other coronary artery of inferior wall; R57.8 Other shock; D62 Acute posthemorrhagic anemia; E87.20 Acidosis, unspecified; K56.7 Ileus, unspecified; I97.191 Other postprocedural cardiac functional disturbances following other surgery; K91.89 Other postprocedural complications and disorders of digestive system; I47.19 Other supraventricular tachycardia; E87.1 Hypo-osmolality and hyponatremia; I44.1 Atrioventricular block, second degree; D72.829 Elevated white blood cell count, unspecified; I95.81 Postprocedural hypotension; K66.0 Peritoneal adhesions (postprocedural) (postinfection); E78.00 Pure hypercholesterolemia, unspecified; I10 Essential (primary) hypertension; I25.10 Atherosclerotic heart disease of native coronary artery without angina pectoris; G89.29 Other chronic pain; M54.30 Sciatica, unspecified side; R73.03 Prediabetes; E66.01 Morbid (severe) obesity due to excess calories; Y83.8 Other surgical procedures as the cause of abnormal reaction of the patient, or of later complication, without mention of misadventure at the time of the procedure; Z87.891 Personal history of nicotine dependence; Z82.49 Family history of ischemic heart disease and other diseases of the circulatory system; Z88.0 Allergy status to penicillin; Z68.32 Body mass index [BMI] 32.0-32.9, adult
CPT/HCPCS: 71045; 74018; 74022; 80048; 80053; 80061; 82248; 82570; 82728; 82962; 83036; 83540; 83550; 83605; 83735; 83880; 84100; 84478; 84484; 85014; 85018; 85025; 85027; 85347; 85610; 85730; 86850; 86900; 86901; 86920; 87040; 88307; 92978; 93005; 93306; 93307; 93458; 97116; 97163; 97167; 97535; C1725; C1753; C1760; C1769; C1874; C1894; C9600; J2916; P9016; Q9950; Q9957; Q9967

== ENCOUNTER 2025-09-18 20:48 | Inpatient (IN) | payer OTHER, SELFPAY ==
[2025-09-18] VITALS (8 sets, daily range): BP systolic 108–139; BP diastolic 61–81; BMI 31.4; BMI 31.2
[2025-09-18 14:45] LABS: Hematocrit 28.5 % (39.0-52.0); Hemoglobin 9.5 g/dL (13.0-18.0); Mean Corp Hgb Conc. 33.3 g/dL (33.0-37.0); Mean Corpuscular Volume 90.8 fL (80.0-94.0); Nucleated Red Blood Cells % 0 % (-); Platelet Count 383 10^3/uL (130-400); Red Cell Dist. Width 13.8 % (11.5-14.5)
[2025-09-18 15:36] LABS: ALT (SGPT) 54 U/L (0-50); AST (SGOT) 163 U/L (17-59); Albumin 3.6 g/dl (3.5-5.0); Alkaline Phosphatase 293 U/L (38-126); Blood Urea Nitrogen 16 mg/dl (9-20); Calcium 8.7 mg/dl (8.4-10.2); Carbon Dioxide 25 mmol/L (22-30); Chloride 104 mmol/L (98-107); Glucose 125 mg/dl (70-99); Lipase 193 U/L (23-300); Potassium 4.0 mmol/L (3.5-5.1); Sodium 133 mmol/L (135-145); Total Protein 6.2 g/dl (6.3-8.2); eGFR > 60.00
--- NOTE | 2025-09-18 16:34 | ED.GENMED ---
History of Present Illness
General
Chief Complaint: Abdominal Pain
Time Seen by Provider: 09/18/25 16:34
History of Present Illness
History of Present Illness:
FOCUSED PAST MEDICAL HISTORY
- Left-sided urothelial carcinoma
REVIEW OF OLD RECORDS
- At time of discharge yesterday, hemoglobin was 9.0
Note:
CHIEF COMPLAINT(S)
Gastrointestinal distress following recent nephrectomy.
HISTORY OF PRESENT ILLNESS
The patient is an 80-year-old male who underwent a recent nephrectomy at [place]. Postoperatively, he reports experiencing gastrointestinal distress, a common occurrence for him after surgeries. He noticed a worsening of these symptoms today.
Upon examination, recent surgical wounds are visible, but only mild diffuse abdominal tenderness is observed. He denies any significant right upper quadrant tenderness. Laboratory results show a white blood cell count of 10.2, hemoglobin at
9.5�which is improved compared to prior levels�new transaminitis, and elevated alkaline phosphatase levels. Additionally, his lipase levels are normal. The urinalysis indicates 4+ blood, 2+ urobilinogen, and is negative for nitrites and leukocyte
esterase. The patient also experienced difficulty urinating overnight for approximately six hours, voided 375 mL here, and has a post-void residual of 150 mL.
PAST MEDICAL AND SURIGICAL HISTORY
Recent nephrectomy.
REVIEW OF SYSTEMS
- Gastrointestinal: Mild diffuse abdominal tenderness.
- Genitourinary: Difficulty urinating, hematuria in urinalysis.
PHYSICAL EXAM
General: Alert, no acute distress.
Skin: Warm, dry. No evidence of infection at the surgical sites of the anterior abdominal wall
Head: Normocephalic, atraumatic.
Neck: Supple, trachea midline.
Eye Ears, nose, mouth and throat: Oral mucosa moist.
Cardiovascular: Normal peripheral perfusion, no edema.
Respiratory: Respirations are non-labored.
Gastrointestinal: Abdomen nondistended, mild diffuse tenderness, no peritoneal signs, suggestion of soft tissue prominence under the surgical site in the anterior abdominal wall
Back: Normal range of motion, normal alignment.
Musculoskeletal: Normal range of motion, normal strength.
Neurological: Alert and oriented to person, place, time, and situation; no focal neurological deficit observed.
Psychiatric: Cooperative, appropriate mood and affect.
PROBLEM LIST
Acute:
- Gastrointestinal distress following recent nephrectomy
- Hematuria and difficulty urinating
PLAN
- Monitor and manage gastrointestinal symptoms.
- Assess and address urinary retention and hematuria. Further investigation to determine the underlying cause of these genitourinary symptoms is suggested.
DIFFERENTIAL DIAGNOSIS
The Differential Diagnosis includes, in no particular order and is not limited to:
- Postoperative gastrointestinal distress
- Urinary tract infection
- Renal complication post-nephrectomy
- Transaminitis related to surgery or medications
- Dehydration
- Electrolyte imbalance
- Obstructive uropathy
- Bladder dysfunction
- Side effects from medications
- Acute kidney injury
RADIOLOGY
- CT imaging shows fluid collection/rim-enhancing postop fluid collection in the left anterior abdomen just deep to the anterior abdominal wall
EKG
- Sinus 79, inferior Q waves, nonspecific ST abnormality
LABS
- White count 10.2, hemoglobin 9.5, creatinine 1.2, bicarb normal, mild transaminase elevation with elevated alk phos which is new
UPDATE
-SUMMARY OF ENCOUNTER
The 80-year-old male patient presented to the emergency department with gastrointestinal distress following a recent nephrectomy. Postoperatively, the patient experienced mild diffuse abdominal tenderness and new symptoms of urinary difficulty.
Laboratory findings indicated hematuria and elevated alkaline phosphatase levels, accompanied by transaminitis. The patient experienced difficulty urinating with a post-void residual of 150 mL. Despite these symptoms, his vital signs were stable. A
CT scan was performed, revealing abnormal findings.
DISPOSITION
Admit
ASSESSMENT
The patient�s gastrointestinal distress and urinary symptoms appear to be related to postoperative complications, including the presence of abnormal CT findings indicating possible renal or abdominal pathology requiring further evaluation.
MANAGEMENT OF THE PATIENTS CARE WAS DISCUSSED WITH
Discussion of CT imaging results and patient care was conducted with Dr. Dasilva and Dr. Cheney, specialists involved in the decision to admit the patient for further evaluation.
PLAN
The plan involves admitting the patient to the hospital service for further monitoring and assessment. Specialists will see the patient in the hospital to determine the nature and treatment of the identified abnormalities.
INDEPENDENT REVIEW OF LABS AND INTERPRETATION OF TESTS
- My independent review of CBC shows a white blood cell count of 10.2 and hemoglobin of 9.5.
- My independent review of liver function tests reveals transaminitis and elevated alkaline phosphatase levels.
- My independent review of the urinalysis indicates 4+ blood and 2+ urobilinogen, with negative nitrites and leukocyte esterase.
- My independent interpretation of the CT scan shows abnormal findings that require further evaluation.
MEDICAL DECISION MAKING
- Complexity of Data Reviewed: Chronic conditions affecting care include gastrointestinal distress following nephrectomy. Differential diagnosis includes postoperative gastrointestinal distress, urinary tract infection, renal complications
post-nephrectomy, transaminitis, dehydration, electrolyte imbalance, obstructive uropathy, bladder dysfunction, medication side effects, and acute kidney injury.
- Risk: Given the abnormal CT findings and lab results, consideration of admission was necessary for further investigation and management.
DIAGNOSIS
- Postoperative fluid collection
- Transient urinary retention
- Abnormal LFTs
I discussed case with Dr. Mcmullen and with Dr. Cheney at Dr. Mcmullen's recommendation. Dr. Cheney recommends right upper quadrant ultrasound, n.p.o., IV fluids, trend CMP and antibiotics seem reasonable, will see in consultation tomorrow
Past History
Past History
ED Past Medical History: None
ED Past Surgical History: Orthopedic
Social History
Tobacco: Former smoker
Alcohol: None
Drug: None
Personal:
Living: with family
Phy Exam
Physical Exam
Physical Exam:
See HPI
Course
Orders/Labs/Results
Orders:
Orders
09/18/25
Electrocardiogram (*1) Stat
Comment: DONE
09/18/25 14:27
Electrocardiogram (*1) Urgent
Reason for Study: Abdominal Pain
EKG- Treatment ONCE
09/18/25 14:37
Complete Blood Count/With Diff Urgent
Comprehensive Metabolic Panel Urgent
Lipase Urgent
09/18/25 16:46
CT Abd/pelvis W Iv Cont Urgent
Comment:
Reason For Exam: abd pain after nephrectomy diffuse tender
Bladder Scan- Treatment ONCE
0.9% Sodium Chloride 1000 ml [Nss] 1,000 ml IV BOLUS
09/18/25 16:57
Urinalysis Reflex To Culture Urgent
Date Specimen was Collected: 09/18/25
Time Specimen was Collected: 16:53
Urine Microscopic Reflex Cult Urgent
Urine Culture Urgent
BENNIE Source: U
Specimen Description:
Date Specimen was Collected: 09/18/25
Time Specimen was Collected: 16:53
09/18/25 19:50
CefTRIAXone [Rocephin] 1,000 mg IV NOW STA
09/18/25 19:53
US Abdomen Limited Urgent
Comment:
Reason For Exam: RUQ/GB only
Abnormal Lab Results
09/18/25 09/18/25
14:37 16:57
RBC 3.14 L 10^6/uL
(4.70-6.10)
Hgb 9.5 L g/dL
(13.0-18.0)
Hct 28.5 L %
(39.0-52.0)
Abs Immat Gran (auto) 0.1 H 10^3/uL
(0-0.05)
Absolute Neuts (auto) 7.9 H 10^3/uL
(1.4-6.5)
Absolute Monos (auto) 0.8 H 10^3/uL
(0.1-0.6)
Immature Gran % 0.9 H %
(0-0.5)
Neutrophils % 77.6 H %
(42.2-75.2)
Lymphocytes % 11.9 L %
(20.5-51.1)
Sodium 133 L mmol/L
(135-145)
Glucose 125 H mg/dl
(70-99)
AST 163 H U/L
(17-59)
ALT 54 H U/L
(0-50)
Alkaline Phosphatase 293 H U/L
(38-126)
Total Protein 6.2 L g/dl
(6.3-8.2)
Ur Occult Blood Reflex 4+ A
(Negative)
Urine Urobilinogen 2+ A
(Neg - 1+)
Urine RBC 11-15 A /HPF
(0-2)
Urine Bacteria (Reflex) Moderate A
(Negative)
Urine Albumin (Reflex) 1+ A
(Neg - Trace)
09/18/25 14:37
09/18/25 14:37
Vital Signs
Initial and Last Documented VS:
Initial Vital Signs
Temp Pulse Resp BP Pulse Ox
36.8 C 85 16 139/71 98
09/18/25 14:23 09/18/25 14:23 09/18/25 14:23 09/18/25 14:23 09/18/25 14:23
Last Documented Vital Signs
Temp Pulse Resp BP Pulse Ox
36.8 C 75 13 123/72 95
09/18/25 14:23 09/18/25 19:36 09/18/25 19:36 09/18/25 19:36 09/18/25 19:36
*Pulse Oximetry
SaO2: 98
Oxygen Mode of Delivery: Room air
Patient hypoxic: no
*Critical Care Note
Total Time (30-74mins, 75-104mins- exclusive of procedures): Not Applicable
ED Attending Note
-
Portions of this chart may have been created with voice recognition software.� Occasional wrong word or��sound alike� substitutions may have occurred due to the inherent limitations of voice recognition software.
Discharge Plan
Departure
Patient Disposition: Admit
Date of Disposition: 09/18/25
Time of Disposition: 19:54
Presentation/result/management discussed w/ accepting MD/DO: Hospitalist
Discharge Problem:
Abdominal fluid collection
Prescriptions:
No Action
acetaminophen [Acetaminophen Extra Strength] 500 mg tablet
1,000 mg PO Q6H PRN (Reason: Pain) Qty: 1 0RF
ticagrelor 90 mg Tablet
90 mg PO BID Qty: 60 11RF
metoprolol succinate 25 mg Tablet Extended Release 24 Hr
12.5 mg PO BID 30 Days Qty: 60 11RF
aspirin 81 mg Tablet,Chewable
81 mg PO DAILY 30 Days Qty: 30 0RF
rosuvastatin [Crestor] 40 mg tablet
40 mg PO HS Qty: 30 11RF
pantoprazole 40 mg Tablet,Delayed Release (Dr/Ec)
40 mg PO DAILY Qty: 30 11RF
Referrals:
Norm Acevedo DO [Family Provider, Family Practice]
Interventions
Interventions:
*Risk Screen - Suicide Last Done: 09/18/25 14:23
*General Assessment Last Done: 09/18/25 14:23
*Neglect/Abuse Screening Last Done: 09/18/25 14:23
*ED- Fall Risk Assessment Last Done: 09/18/25 16:40
*ED COVID-19 Vaccine History Last Done: 09/18/25 14:23
*ED Influenza Vaccine History Last Done: 09/18/25 14:23
UP-Bdcold-Dnafazsdgi Assessment Last Done: 09/18/25 16:40
Discharge Date and Time
Print Language: TONGAN
[2025-09-18 17:05] LABS: Urine Character Clear (Clear)
[2025-09-18] MEDS: NSS 1000 IV (17:07)
--- NOTE | 2025-09-18 20:01 | HPS.HSE ---
Addendum entered and electronically signed by Demetri Londono MD 09/19/25 07:14:
Discussed possible surgery with cardiology yesterday while studies where pending. If going to OR today, plan was to hold DAPT last night and this am.
The u/s was negative for cholecystitis, patient has been stable without fevers, chills, abdominal pain requiring medications.
HIDA scan remains pending, suspect unlikely to go to OR today. Therefore restarted DAPT pending HIDA.
Original Note:
Family Physician
-
Family Physician: Norm Acevedo
Chief Complaint
-
Abdominal pain
History of Present Illness
This is a 80 y.o male with past medical history of hypertension, hyperlipidemia, history of urothelial carcinoma who underwent 6 robotic left nephrectomy on September 04 and had a course complicated by postop STEMI requiring stent placement and
prolonged postoperative course complicated by hypotension, blood loss, postop ileus and a very short sustained runs of paroxysmal atrial tachycardia now presenting to the emergency department after being discharged yesterday with abdominal pain.
As stated during the patient's admission he had a complication including ileus, urinary tension was deemed STEMI requiring stent placement. Patient's ileus did improve prior to discharge and he had a bowel movement prior to discharge. He also was
urinating spontaneously prior to discharge. On arrival home patient felt he was not at his baseline. He had an episode of urinary retention overnight but he urinated at around 4 AM in the morning. This was not associated with any pain or
discomfort. He had breakfast and then soon after that he developed periumbilical abdominal pain that he recalls has been very very intense rising rapidly and then associate with nausea but no vomiting. He denied any chills. He denies any fevers.
The pain gradually subsided back to his baseline after about 30 minutes and he has been at baseline since. He reported that he had a bowel movement prior to onset of the pain that was black and tarry.
He reports that he has been voiding spontaneously since 6 AM. He through multiple voids in the emergency department and he denies any hematuria. He has not had additional bowel movement.
In the emergency department he was afebrile, blood pressure was 123/70 with a pulse of 75 and he was satting 95% on room air. ECG shows normal sinus rhythm at rate of 79 with Q waves in the inferior leads similar to prior. CBC was unremarkable
with a hemoglobin of 9.3, WBC of 10.2 and plate count of 383. UA is mostly negative. Electrolyte BUN/creatinine were normal. He has a new elevations of AST to 163 ALT 54 and alk phos 293. T. bili is 1.2.
CT of the abdomen pelvis shows postoperative changes with postoperative fluid collection in the left anterior abdomen, contiguous with fluid collection in the central abdomen. Tubular filling defect in the distal left renal vein at the resection
margin consistent with postoperative changes. Per radiologist, liver, gallbladder, bile ducts, pancreas, spleen, bilateral adrenal glands, and right kidney are unremarkable however evaluation by surgery indicated distended gallbladder
Medical History
Past Medical History
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
Social History
Tobacco: Non-smoker
Alcohol: None
Drug: None
Family History
Family History: Not pertinent
Allergies / Home Medications
Allergies reflects when Allergies were last updated in [employer].
Home Medications with original date entered in [employer]
Allergy/Medication List:
Allergies
Allergy/AdvReac Type Severity Reaction Status Date / Time
Opioids - Morphine Analogues Allergy 'bowels Verified 09/18/25 14:27
shut down'
Penicillins Allergy Possible Verified 09/18/25 14:27
rash 'a
long time
ago'
Home Medications
acetaminophen 500 mg tablet (Acetaminophen Extra Strength) 1,000 mg (2 x 500 mg) PO Q6H PRN Pain #1 tab 09/04/25
ticagrelor 90 mg tablet 90 mg PO BID #60 tabs 09/16/25
aspirin 81 mg chewable tablet 81 mg PO DAILY Heart disease/condition 30 days #30 tabs 09/17/25
metoprolol succinate 25 mg tablet,extended release 24 hr 12.5 mg (1/2 x 25 mg) PO BID Blood pressure 1 month #60 tabs 09/17/25
pantoprazole 40 mg tablet,delayed release 40 mg PO DAILY #30 tabs 09/17/25
rosuvastatin 40 mg tablet (Crestor) 40 mg PO HS #30 tabs 09/17/25
Review of Systems
-
Constitutional: Reports No Symptoms
EENT: Reports No Symptoms
Respiratory: Reports No Symptoms
Cardiac: Reports No Symptoms
Abdomen/GI: Reports Abdominal Pain and Nausea
: Reports No Symptoms
Musculoskeletal: Reports No Symptoms
Skin: Reports No Symptoms
Neurological: Reports No Symptoms
Endocrine: Reports No Symptoms
Hematologic/Lymphatic: Reports No Symptoms
Psych: Reports No Symptoms
Physical Exam
Vital Signs
Vital Signs
Temp Pulse Resp BP Pulse Ox
98.2 F 75 13 123/72 95
09/18/25 14:23 09/18/25 19:36 09/18/25 19:36 09/18/25 19:36 09/18/25 19:36
Physical Exam
General: Well Developed, Well Nourished and No Apparent Distress
HEENT: NormoCephalic, Moist mucous membranes and Atraumatic
Respiratory: Clear
Cardiac: S1/S2 and Regular Rhythm; No Murmur or Rub
GI: Soft, Non Tender, Non Distended and Normal Bowel Sounds; No Organomegaly
Rectal: Deferred by Provider
Musculoskeletal: No Clubbing, No Cyanosis and No Edema
Skin: No Rash
Neuro: AO x 3 and Nonfocal/grossly intact
Laboratory Results
-
09/18/25 14:37
09/18/25 14:37
Laboratory Results
Total Bilirubin 1.2 mg/dl (0.2-1.3) 09/18/25 14:37
AST 163 U/L (17-59) H 09/18/25 14:37
ALT 54 U/L (0-50) H 09/18/25 14:37
Alkaline Phosphatase 293 U/L (38-126) H 09/18/25 14:37
Lipase 193 U/L (23-300) 09/18/25 14:37
Data Reviewed
-
CT Scan: Report Reviewed by me
Medical Tests (Nuc Med, Echo, EKG etc): Image Personally Visualized and interpreted
Lab Data: Labs Reviewed by me
Old Records: Reviewed
Impression/Plan
-
IMPRESSION:
80-year-old who has past medical history of hypertension, hyperlipidemia, uroepithelial cancer who is recently status post left nephrectomy for malignancy complicated by postoperative STEMI requiring stent placement as well as postop ileus and
urinary retention both of which resulted at time of his discharge yesterday presenting again to the emergency department with abdominal pain and nausea. The abdominal pain lasted for about 30 minutes and now is resolved. He did have 1 episode of
black tarry bowel movement prior to onset of abdominal pain. Is physical exam is benign. He is nontoxic-appearing. He does have mild leukocytosis to 10.2, mild elevation in LFTs with AST of 43 and ALT of 54 and alk phos of 293 with normal total
bilirubin. His chemistries BUN and creatinine were stable. CT scan is mostly consistent with postop changes and some gallbladder distention. ECG is nonischemic
PLAN:
Abdominal pain -given distention of gallbladder suggestive of cholecystitis versus biliary colic. It is possible to given the elevations LFT that he did pass a stone. However no evidence of cholelithiasis on the CT scan.
-Admit to [facility] for now
-N.p.o.
-IV ceftriaxone/Flagyl
-Right upper quadrant ultrasound
-If right upper quadrant ultrasound is negative, will proceed to HIDA scan for acalculous cholecystitis
-Surgery consult
-For postop nephrectomy changes will consult urology
�UA is negative and similar to prior, unlikely this cystitis
CAD -postop STEMI, status post stenting, preserved EF
- Possible surgical procedure pending, patient is status post BRADLEY for STEMI on September 16, on continue DAPT with aspirin and Brilinta, discussed with cardiology about possible perioperative management,
�Continue Crestor
� Continue metoprolol
� Olmesartan is on hold
DVT prophylaxis�heparin subcu for now CODE STATUS�full code
[2025-09-18] MEDS: ROCEPHIN 1000 MG IV (20:12)
--- NOTE | 2025-09-18 20:28 | PHANOTE ---
MED REC NOTE- PATIENT COMING IN AFTER SURGERY, PATIENT SENT HOME WITH TOPROL XL 12.5MG BID BUT [facility] [place] DID NOT FILLED IT THAT WAY, TRIED TO CALL AND CONFIRM DIRECTION BUT WAITING ON HOLD AND THEN THE STORE CLOSED SO NO ONE
RETURN TO THE PHONE CALL TO ANSWER MY QUESTION.
--- NOTE | 2025-09-18 21:45 | PTCARENOTE ---
Patient arrived to 2S from the ED @2130. Pt ambulated from stretcher to bed. AAOx3. Vital signs stable. No c/o pain. Admission assessment completed. IVF initiated per order. Pt NPO but allowed sips of clears. Oriented to room and call scott is within
reach. at bedside. Care ongoing.
[2025-09-18] MEDS: FLAGYL 500 MG 100 IV (22:25)
[2025-09-18] MEDS: LR 1000 IV (22:25)
[2025-09-18] MEDS: CRESTOR 40 MG PO (22:35)
[2025-09-19 03:00] VITALS: BP 110/62
[2025-09-19] MEDS: FLAGYL 500 MG 100 IV (05:35)
--- NOTE | 2025-09-19 07:15 | W.PN.HOSP.TC ---
Today's Communication/Plan
-
discharge today
Assessment / Plan
Assessment / Plan
In summary, 80 yo M H urothelial carcinoma s/p robotic left nephrectomy on 09/04 c/b blood loss, hypotension and postop STEMI s/p stent, acute urinary retention, HTN, HLD p/w abdominal pain.
Abdominal pain
- epigastric pain, with possible tarry stool: ddx peptic/duodenal ulcer, pancreatitis, ileus, biliary colic, cholecystitis, postoperative abscess, ACS
- could be related to peptic ulcer disease, ileus given recent surgery
- biliary imaging does not suggest gallbladder disease
- normal lipase
- EKG NSR
- afebrile, normal WBC and timeline does not suggest abscess
Plan:
- surgery consulted: okay for discharge per them and low fat diet
- discharge today
Transaminitis
- R factor of 1.2 suggesting cholestatic, RUQUS shows sludge
- Labs are c/w passing of gallstone
- patient has been counselled on trying to adhere to low fat diet
CAD
Postop STEMI s/p stent
- aspirin and ticagrelor
- rosuvastatin
- metoprolol
Acute urinary retention - resolved
- reports being unable to void for a day
- but now able to void
Full code
DVTppx: subq heparin
Anticipated Discharge: Today
Subjective/Interval History
-
Date of Service: September 19, 2025
80 yo M PMH urothelial carcinoma s/p robotic left nephrectomy on 09/04 c/b blood loss, hypotension and postop STEMI s/p stent, acute urinary retention, HTN, HLD p/w abdominal pain.
epigastric pain, nonradiating, no clear aggravating or alleviating factors. It was 8/10 severity, then decreased to 6/10 severeity on its own after a few hours, and then after more time, it reduced to his baseline 3/10 pain due to the recent
surgery.
+ nausea, no vomiting, no hematemesis
he also reported 1x epsiode of black, tarry stools yesterday morning. He also reports that when he was discharged, he was unable to void.
he denies presyncope, lightheadedness, palpitations
In the ED:
VSS, afebrile
Labs: WBC 7.1; CBC 8.4; AST 163; ALT 54; Alkphos 293, Lipase 193
EKG: NSR
CT A/P: postoperative changes with postoperative fluid collection in the left anterior abdomen, contiguous with fluid collection in the central abdomen. Tubular filling defect in the distal left renal vein at the resection margin consistent with
postoperative changes.
RUQUS: gallbladder sludge
Objective Data
-
Labs:
Laboratory Results
09/19/25
06:00
WBC Pending
Hgb Pending
Hct Pending
Plt Count Pending
Sodium Pending
Potassium Pending
Chloride Pending
Carbon Dioxide Pending
BUN Pending
Creatinine Pending
Glucose Pending
Calcium Pending
Total Bilirubin Pending
AST Pending
ALT Pending
Alkaline Phosphatase Pending
CT A/P
IMPRESSION:
Left nephrectomy with mild inflammation and a small amount of complex fluid in the nephrectomy bed.
Rim-enhancing postoperative fluid collection in the left anterior abdomen just deep to the anterior abdominal wall. Nearby and possibly contiguous complex collection in the central abdomen somewhat difficult to differentiate from adjacent small
bowel loops, but also suspicious for a postoperative collection.
Tubular filling defect in the distal left renal vein at the resection margin. The differential includes postoperative change, bland thrombus, or tumor thrombus.
IMPRESSION:
Gallbladder sludge. No evidence for cholelithiasis or bile duct dilatation.
Vital Signs:
Vital Signs
Temp Pulse Resp BP Pulse Ox
98.3 F 79 18 110/62 95
09/19/25 03:00 09/19/25 03:00 09/19/25 03:00 09/19/25 03:00 09/19/25 03:00
I&O
09/18/25 09/19/25 09/20/25
06:59 06:59 06:59
Intake Total 1200 / 1200
Output Total 1250 / 1250
Balance -50 / -50
Review of Systems
-
History Source: Patient
Constitutional: Reports No Symptoms
EENT: Reports No Symptoms Reported
Respiratory: Reports No Symptoms
Cardiac: Reports No Symptoms
Abdomen/GI: Reports Abdominal Pain and Nausea
Genitourinary: Reports Difficulty Voiding
Musculoskeletal: Reports No Symptoms
Neuro: Reports No Symptoms
Physical Exam
-
HEENT: Normocephalic
Respiratory: Clear to Auscultation
Cardiac: Other (no murmurs)
GI: Tender (epigastric) and Other (no rebound tenderness)
Musculoskeletal: No Edema
Neuro: AO x 3 and Nonfocal/Grossly Intact
Psych: Calm
[2025-09-19 07:25] VITALS: BP 120/64
[2025-09-19 08:08] LABS: Hematocrit 24.6 % (39.0-52.0); Hemoglobin 8.4 g/dL (13.0-18.0); Mean Corp Hgb Conc. 34.1 g/dL (33.0-37.0); Mean Corpuscular Volume 88.8 fL (80.0-94.0); Platelet Count 317 10^3/uL (130-400); Red Cell Dist. Width 13.6 % (11.5-14.5)
[2025-09-19 08:40] LABS: ALT (SGPT) 197 U/L (0-50); AST (SGOT) 225 U/L (17-59); Albumin 2.9 g/dl (3.5-5.0); Alkaline Phosphatase 402 U/L (38-126); Blood Urea Nitrogen 12 mg/dl (9-20); Calcium 8.5 mg/dl (8.4-10.2); Carbon Dioxide 24 mmol/L (22-30); Chloride 106 mmol/L (98-107); Estimated Creatinine Clearance 60 ml/min; Glucose 93 mg/dl (70-99); Potassium 4.2 mmol/L (3.5-5.1); Sodium 133 mmol/L (135-145); Total Protein 5.2 g/dl (6.3-8.2); eGFR > 60.00
[2025-09-19] MEDS: BRILINTA 90 MG PO (09:21)
[2025-09-19] MEDS: LOW STRENGTH ASPIRIN 81 MG PO (09:21)
[2025-09-19] MEDS: NSS (PRESERVATIVE FREE) 10 ML IV (09:23)
[2025-09-19] MEDS: PROTONIX IV 40 MG IV (09:23)
[2025-09-19] MEDS: TOPROL XL 25 MG PO (09:32)
[2025-09-19] MEDS: HEPARIN 5000 UNITS SC (09:32)
[2025-09-19] MEDS: SENOKOT-S 1 TABLET PO (09:36)
--- NOTE | 2025-09-19 10:05 | CON.GS ---
Consultation
-
Date/Time Consultation Performed: 09/19/25
Requesting Provider: Emerson
Performing Provider: Giacomo
Reason for Consultation: Abd pain
Medical History
-
Chief Complaint: Epigastric pain
History of Present Illness:
80M with intermittent 'gas pain' that occurs at his epigastrium. Had this many times before but never this severe. This am the pain has resolved. He did had some nausea which resolved. Presently he denies f/c/n/v, denies changes to urine/stool,
denies RUQ pain and denies radiation of pain. Onset after a heavy breakfast.
Past Medical History
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
Social History
Tobacco: Non-Smoker
Alcohol: None
Drug: None
Family History
Family History: Reviewed & Noncontributory
Allergies / Home Medications
Allergy/AdvReac Type Severity Reaction Status Date / Time
Opioids - Morphine Analogues Allergy 'bowels Verified 09/18/25 14:27
shut down'
Penicillins Allergy Possible Verified 09/18/25 14:27
rash 'a
long time
ago'
�Medication �Instructions �Recorded �Confirmed �Type
aspirin 81 mg chewable tablet 81 mg PO DAILY Heart 09/17/25 09/18/25 Rx
disease/condition 30 days #30 tabs
acetaminophen 500 mg tablet 1,000 mg PO Q6HPRN PRN MILD Pain 09/18/25 09/18/25 History
(Acetaminophen Extra Strength)
metoprolol succinate 25 mg 25 mg PO DAILY Blood pressure 09/18/25 09/18/25 History
tablet,extended release 24 hr
pantoprazole 40 mg tablet,delayed 40 mg PO DAILY Gastrointestinal 09/18/25 09/18/25 History
release Issue
rosuvastatin 40 mg tablet (Crestor) 40 mg PO HS High Cholesterol 09/18/25 09/18/25 History
ticagrelor 90 mg tablet 90 mg PO BID Blood Clot 09/18/25 09/18/25 History
Prevention/Tx
Review of Systems
-
A 10 point review of systems was completed, and was negative except as per HPI.
Physical Exam
Vital Signs
Temp Pulse Resp BP Pulse Ox
98.8 F 71 16 120/64 96
09/19/25 07:25 09/19/25 07:25 09/19/25 07:25 09/19/25 07:25 09/19/25 07:25
09/18/25 09/19/25 09/20/25
06:59 06:59 06:59
Actual Weight 95.906 kg
Body Mass Index (BMI) 31.2
Lab Results
09/19/25 07:44
09/19/25 07:44
WBC 7.1 10^3/uL (4.8-10.8) 09/19/25 07:44
Hgb 8.4 g/dL (13.0-18.0) L 09/19/25 07:44
Hct 24.6 % (39.0-52.0) L 09/19/25 07:44
Plt Count 317 10^3/uL (130-400) 09/19/25 07:44
Abs Immat Gran (auto) 0.1 10^3/uL (0-0.05) H 09/18/25 14:37
Neutrophils % 77.6 % (42.2-75.2) H 09/18/25 14:37
Physical Exam
General: Well Developed, Well Nourished and No Apparent Distress
HEENT: Normocephalic and Anicteric
GI: Soft, Non Tender and Non Distended
Skin: Warm and Dry
Neuro: AO x 3
Psych: Calm
Data Reviewed
-
CT Scan: Image Personally Visualized and interpreted, Report Reviewed by me, Discussed with Physician and Discussed with Patient
Ultrasound: Image Personally Visualized and interpreted, Report Reviewed by me, Discussed with Physician and Discussed with Patient
Labs: Labs Reviewed by me, Discussed with Physician and Discussed with Patient
Assessment / Plan
-
80M with transient epigastric pain after heavy meal
AFVSS, benign exam this am, reports clinical resolution
No leukocytosis
LFTs elevated with normal Tbili
CT with distended gb without stranding or wall thickening or fluid
US with sludge, neg sono bliss's, no GBWT, no PCF, CBD WNL
Plan:
PO challenge
DC if tolerates
Advised low fat diet
Advised o/p f/u with GS if symptoms recur
Pls call with ?s
--- NOTE | 2025-09-19 10:50 | W.PN.UPDATE ---
Update Note
Progress Note Update
New onset acute epigastric pain noted in AM 09/18 after heavy breakfast (scrapple and pork sausage per patient).
Contacted [facility] Urology office - directed to [facility] ED.
CT imaging => expected post-op changes s/p left radical nephroureterectomy, distended gallbaldder w/o stranding/stones/wall thickening/fluid.
US Abdomen => sludge, negative sonographic Rodriguez's, no GWT, no PCF, CBD WNL
LFTs elevated with normal Tbili
Abdominal exam this AM benign - notes near complete resolution of symptoms
Denies N/V
WBC WNL
Plan:
- Low fat diet per GS
- Plan for discharge home later today
- Surgical pathology from right NephU finalized => printed and reviewed w/ patient this AM
D/w patient.
--- NOTE | 2025-09-19 11:37 | W.DCSUMMARY ---
Documented by User: Rico Carter MD, Resident 09/19/25 12:11
Discharge Summary
Discharge Data
Date of Admission: 09/18/25
Date of Discharge: 09/19/25
-
Pending Results: No
Hospital Course
Discharging Physician : Dr. Mohit Norman; Dr. Rico Carter
Disposition : Home
Primary care physician : Norm Acevedo
Principal Discharge diagnosis : Abdominal pain, abdominal fluid collection
Chronic Discharge diagnosis : hypertension, hyperlipidemia, history of urothelial carcinoma who underwent 6 robotic left nephrectomy on September 04 and had a course complicated by postop STEMI requiring stent placement and prolonged postoperative
course complicated by hypotension, blood loss, postop ileus and a very short sustained runs of paroxysmal atrial tachycardia
Hospital Course :
80 yo M PMH urothelial carcinoma s/p robotic left nephrectomy on 09/04 c/b blood loss, hypotension and postop STEMI s/p stent, acute urinary retention, HTN, HLD p/w abdominal pain.
It is epigastric pain, nonradiating, no clear aggravating or alleviating factors. It was 8/10 severity, then decreased to 6/10 severeity on its own after a few hours, and then after more time, it reduced to his baseline 3/10 pain due to the recent
surgery. He endorsed nausea, no vomiting, no hematemesis. He also reported 1x epsiode of black, tarry stools yesterday morning. He also reports that when he was discharged, he was unable to void but is now able to void. He denies presyncope,
lightheadedness, palpitations
The following problems were addressed during this admission and has been counselled to attend his schedule outpatient follow-up appointments.
Abdominal pain likely due to passing gallstone
Transaminitis
- epigastric pain, with possible tarry stool: ddx peptic/duodenal ulcer, pancreatitis, ileus, biliary colic, cholecystitis, postoperative abscess, ACS
- biliary imaging does not suggest gallbladder disease but RUQUS showed gallbladder sludge
- LFTs --> R factor of 1.2
- Other ddx: could be related to peptic ulcer disease, ileus given recent surgery; normal lipase; EKG NSR
- afebrile, normal WBC and timeline does not suggest abscess
- the most likely etiology when reconciling the LFTs is a passing gallstone
Plan:
- per surgery: okay for discharge per them and low fat diet
- patient tolerated PO intake and endorsed no pain, no nausea
- Patient has been advised to try to adhere to a low-fat diet and he should take his PPI 2x/day for 4 weeks and then resume once daily dosing.
- He should do a follow-up CBC, CMP in 1 week and follow-up with PCP
CAD
Postop STEMI s/p stent
- aspirin and ticagrelor
- rosuvastatin
- metoprolol
Acute urinary retention - resolved
- reports being unable to void for a day
- but now able to void
Important imaging findings :
CT A/P with IV contrast 09/18/2025
IMPRESSION:
Left nephrectomy with mild inflammation and a small amount of complex fluid in the nephrectomy bed.
Rim-enhancing postoperative fluid collection in the left anterior abdomen just deep to the anterior abdominal wall. Nearby and possibly contiguous complex collection in the central abdomen somewhat difficult to differentiate from adjacent small
bowel loops, but also suspicious for a postoperative collection.
Tubular filling defect in the distal left renal vein at the resection margin. The differential includes postoperative change, bland thrombus, or tumor thrombus.
Abdomen US Limited 09/18/2025
IMPRESSION:
Gallbladder sludge. No evidence for cholelithiasis or bile duct dilatation.
Procedure findings :
EKG 09/18/2025, 14:27
Vent. Rate : 79 BPM Atrial Rate : 79 BPM
P-R Int : 118 ms QRS Dur : 104 ms
QT Int : 374 ms P-R-T Axes : -4 3 -57 degrees
QTcB Int : 428 ms
NORMAL SINUS RHYTHM
INFERIOR INFARCT (CITED ON OR BEFORE 05-Sep-2025)
Discharge Plan
-
Patient Disposition: Home (Routine Discharge)
Discharge Diagnosis/Procedures: Abdominal Pain
Condition: Good
Diet: Low Fat
Activity: As tolerated
Driving Restrictions: As prior to admission
Blood Work: CBC & CMP in one week, follow up with PCP
Referrals:
Sherwin Hoang MD [Active, Urology]
Norm Acevedo DO [Family Provider, Family Practice]
David Gooden MD [Active, Surgical] - in one to two months
Ethel Moran PA-C [Specified Professional Personl, Cardiology] - 10/02/25 11:20 am
Referral Note: You have a cardiology follow up appointment at the [place] office. Please call with questions.
Additional Discharge Medication Instructions: Please take pantoprazole 40mg PO TWICE a day for 4 weeks, then can return to ONCE a day.
You should continue your other medications as below.
Please try to adhere to a low-fat diet. If the symptoms recur you should follow-up outpatient with general surgery
Please follow-up with urology outpatient as well and cardiology.
You should follow-up with your PCP within 1-2 weeks
Prescriptions:
Continued
aspirin 81 mg Tablet,Chewable
81 mg PO DAILY 30 Days Qty: 30 0RF
acetaminophen [Acetaminophen Extra Strength] 500 mg tablet
1,000 mg PO Q6HPRN PRN (Reason: MILD Pain)
metoprolol succinate 25 mg tablet extended release 24 hr
25 mg PO DAILY
rosuvastatin [Crestor] 40 mg tablet
40 mg PO HS
ticagrelor 90 mg tablet
90 mg PO BID
pantoprazole 40 mg tablet,delayed release (DR/EC)
40 mg PO DAILY Qty: 60 0RF
Rx Instructions:
Take TWICE daily for 4 weeks, and then resume ONCE daily dosing.
Discharge Orders:
Discharge Patient (As Directed); Ordered 09/19/25
Ordered By: Rico Carter
Discharge Date and Time
Print Language: MALTESE

Documented by User: Mohit Norman DO 09/19/25 12:18
Discharge Summary
Discharge Data
Date of Admission: 09/18/25
Date of Discharge: 09/19/25
Total time spent discharging patient (in min): 31
Discharge Plan
-
Patient Disposition: Home (Routine Discharge)
Discharge Diagnosis/Procedures: Abdominal Pain
Condition: Good
Diet: Low Fat
Activity: As tolerated
Driving Restrictions: As prior to admission
Blood Work: CBC & CMP in one week, follow up with PCP
Referrals:
Sherwin Hoang MD [Active, Urology]
Norm Acevedo DO [Family Provider, Family Practice]
David Gooden MD [Active, Surgical] - in one to two months
Ethel Moran PA-C [Specified Professional Personl, Cardiology] - 10/02/25 11:20 am
Referral Note: You have a cardiology follow up appointment at the [place] office. Please call with questions.
Additional Discharge Medication Instructions: Please take pantoprazole 40mg PO TWICE a day for 4 weeks, then can return to ONCE a day.
You should continue your other medications as below.
Please try to adhere to a low-fat diet. If the symptoms recur you should follow-up outpatient with general surgery
Please follow-up with urology outpatient as well and cardiology.
You should follow-up with your PCP within 1-2 weeks
Prescriptions:
Continued
aspirin 81 mg Tablet,Chewable
81 mg PO DAILY 30 Days Qty: 30 0RF
acetaminophen [Acetaminophen Extra Strength] 500 mg tablet
1,000 mg PO Q6HPRN PRN (Reason: MILD Pain)
metoprolol succinate 25 mg tablet extended release 24 hr
25 mg PO DAILY
rosuvastatin [Crestor] 40 mg tablet
40 mg PO HS
ticagrelor 90 mg tablet
90 mg PO BID
pantoprazole 40 mg tablet,delayed release (DR/EC)
40 mg PO DAILY Qty: 60 0RF
Rx Instructions:
Take TWICE daily for 4 weeks, and then resume ONCE daily dosing.
Discharge Orders:
Discharge Patient (As Directed); Ordered 09/19/25
Ordered By: Rico Carter
Discharge Date and Time
Print Language: MALTESE
--- NOTE | 2025-09-19 11:43 | CM ---
Alert awake oriented patient who lives with Josiane in a 3 story home with 1 steps to enter and 14 steps to bed/bathroom. He is independent in driving and ADls [employer].No adaptive devices. Offered Vn he declined need.Aleisha Espinoza will drive him
home.
NO VN hx . No SNF HX
Pharmacy [facility]
PCP Dr Acevedo
Plan Home pt declined needs
[2025-09-19 11:55] VITALS: BP 130/63
== END 2025-09-19 12:18 | disposition home or self-care (01) | DRG 446 ==
LOC: 2 SOUTH 20:48
PROVIDERS: Emergency Medicine; ADMITTING PHYSICIAN Internal Medicine; ATTENDING PHYSICIAN Internal Medicine; EMERGENCY PHYSICIAN Emergency Medicine; FAMILY PHYSICIAN Family Medicine; OTHER PHYSICIAN Surgery
DX: K80.20 Calculus of gallbladder without cholecystitis without obstruction (principal); I25.10 Atherosclerotic heart disease of native coronary artery without angina pectoris; Z79.02 Long term (current) use of antithrombotics/antiplatelets; Z79.82 Long term (current) use of aspirin; Z87.891 Personal history of nicotine dependence
CPT/HCPCS: 74177; 76705; 80053; 81003; 81015; 82248; 83690; 85025; 85027; 86850; 86900; 86901; 87086; 93005; 96361; 96374; 99285; Q9967

== ENCOUNTER 2025-10-23 10:00 | Outpatient (RCR) | payer OTHER, SELFPAY | END 2025-10-23 23:59 | disposition home or self-care (01) | LOC: CRHB 10:00 | PROVIDERS: ATTENDING PHYSICIAN Internal Medicine Cardiovascular Disease | DX: I25.10 Atherosclerotic heart disease of native coronary artery without angina pectoris (principal); I25.2 Old myocardial infarction (principal); Z95.5 Presence of coronary angioplasty implant and graft | CPT/HCPCS: 93797; 93798 ==